=== PATIENT | female | born 1970 | race Caucasian/White ===

== ENCOUNTER 2017-12-23 11:00 | Outpatient (RCR) | payer MEDICAID, SELFPAY | END 2017-12-25 23:59 | LOC: NS 11:00 | PROVIDERS: Family Provider Family Medicine; PCP Family Medicine; Visit Provider Family Medicine | DX: E66.01 Morbid (severe) obesity due to excess calories (principal); Z71.3 Dietary counseling and surveillance | CPT/HCPCS: 97803 ==

== ENCOUNTER 2018-01-20 11:00 | Outpatient (RCR) | payer MEDICAID, SELFPAY ==
[2017-12-17 08:45] VITALS: BMI 59.1
== END 2018-01-22 23:59 ==
LOC: NS 11:00
PROVIDERS: Family Provider Family Medicine; PCP Family Medicine; Visit Provider Family Medicine
DX: E66.01 Morbid (severe) obesity due to excess calories (principal); Z71.3 Dietary counseling and surveillance
CPT/HCPCS: 97803

== ENCOUNTER → 2018-01-21 14:52 | Outpatient (CLI) | payer MEDICAID, SELFPAY ==
[2018-01-21 15:52] LABS: Hematocrit 45.1 % (37-47); Hemoglobin 14.5 g/dl (12.0-15.0); Mean Corp Hgb Conc 32.2 g/gl (32-36); Mean Corpuscular Hgb 30.5 pg (27.0-32.0); Mean Corpuscular Volume 94.9 fL (81-99); Mean Platelet Vol. 11.4 fl (6.2-12.0); Platelet Count 277 K/mm3 (150-450); RBC Distribution Width CV 13.9 % (11.6-14.6); RBC Distribution Width SD 48.4 fl (35.1-43.9); Red Blood Count 4.75 M/mm3 (4.2-5.4); White Blood Count 11.9 K/mm3 (4.4-11.0)
[2018-01-21 15:55] LABS: Scan Indicated on CBC? Y/N NO
[2018-01-21 16:24] LABS: ALB/GLOB Ratio 0.7 RATIO (0.9-2.4); AST(SGOT) 18 U/L (15-37); Alanine Aminotransfer ALT/SGPT 23 U/L (13-56); Albumin, Serum 3.2 g/dL (3.2-5.0); Alkaline Phosphatase 98 U/L (45-117); Anion Gap 8 (5-15); BUN 17 mg/dL (7-18); BUN/Creat Ratio 24.8 RATIO (10-20); Calcium,Total 8.8 mg/dL (8.5-10.1); Chloride 104 mmol/L (98-107); Creatinine, Serum 0.69 mg/dL (0.55-1.02); EST Glomerular Filtration Rate 98 mL/min (>60); Est Glom Filt Rate - Afr Amer 118 mL/min (>60); Globulin 4.5 g/dL (2.2-4.2); Glucose 66 mg/dL (74-106); Potassium 4.1 mmol/L (3.5-5.1); Protein, Total 7.7 g/dL (6.4-8.2); Sodium Level 139 mmol/L (136-145)
[2018-01-21 17:22] LABS: Hemoglobin A1c 5.7 % (4.2-6.3)
== END ==
PROVIDERS: Family Provider Family Medicine; PCP Family Medicine; Visit Provider Nurse Practitioner
DX: E11.9 Type 2 diabetes mellitus without complications (principal)
CPT/HCPCS: 36415; 80053; 83036; 85027

== ENCOUNTER 2018-02-17 11:30 | Outpatient (RCR) | payer MEDICAID, SELFPAY | END 2018-02-22 23:59 | LOC: NS 11:30 | PROVIDERS: Family Provider Family Medicine; PCP Family Medicine; Visit Provider Family Medicine | DX: E66.01 Morbid (severe) obesity due to excess calories (principal); Z71.3 Dietary counseling and surveillance | CPT/HCPCS: 97803 ==

== ENCOUNTER 2018-02-24 11:57 | Outpatient (RCR) | payer MEDICAID, SELFPAY | END 2018-02-24 11:58 | disposition home or self-care (01) | LOC: NS 11:57 | PROVIDERS: Family Provider Family Medicine; PCP Family Medicine; Visit Provider Family Medicine | DX: E66.01 Morbid (severe) obesity due to excess calories (principal); Z71.3 Dietary counseling and surveillance | CPT/HCPCS: 97803 ==

== ENCOUNTER → 2018-03-11 13:03 | Outpatient (CLI) | payer MEDICAID, SELFPAY ==
--- NOTE | 2018-03-11 13:10 | RAD_ITS ---
STUDY: X-RAY - LEFT KNEE REASON FOR EXAM: Female, 47 years old. Pain TECHNIQUE: 4 view(s) of the knee. COMPARISON: None. FINDINGS: There is no evidence of fracture or dislocation. There are mild degenerative changes. There are no radiodense foreign bodies. RAD/Knee 4 or More Views IMPRESSION: No fracture or dislocation. Mild degenerative change. Electronically Signed: Jayesh Snider, at 22:44 EDT Tel , Service support ,
--- NOTE | 2018-03-11 13:50 | RAD_ITS ---
STUDY: X-RAY - RIGHT KNEE REASON FOR EXAM: Female, 47 years old. Pain TECHNIQUE: 4 view(s) of the knee. COMPARISON: None. FINDINGS: There is no evidence of fracture or dislocation. There are mild degenerative changes. There are no radiodense foreign bodies. RAD/Knee 4 or More Views IMPRESSION: No fracture or dislocation. Mild degenerative change. Electronically Signed: Jayesh Snider, at 22:44 EDT Tel , Service support ,
== END ==
PROVIDERS: Family Provider Family Medicine; PCP Family Medicine; Visit Provider Anesthesiology Pain Medicine
DX: M25.561 Pain in right knee (principal); M25.562 Pain in left knee
CPT/HCPCS: 73564

== ENCOUNTER 2018-03-17 11:00 | Outpatient (RCR) | payer MEDICAID, SELFPAY | END 2018-03-24 23:59 | LOC: NS 11:00 | PROVIDERS: Family Provider Family Medicine; PCP Family Medicine; Visit Provider Family Medicine | DX: E66.01 Morbid (severe) obesity due to excess calories (principal); Z68.44 Body mass index [BMI] 60.0-69.9, adult; Z71.3 Dietary counseling and surveillance | CPT/HCPCS: 97802; 97803 ==

== ENCOUNTER → 2018-03-21 11:29 | Outpatient (CLI) | payer MEDICAID, SELFPAY ==
[2018-03-21 14:30] LABS: Anion Gap 7 (5-15); BUN 20 mg/dL (7-18); BUN/Creat Ratio 25.5 RATIO (10-20); Calcium,Total 9.1 mg/dL (8.5-10.1); Chloride 101 mmol/L (98-107); Cholesterol 159 mg/dL (200); Creatinine, Serum 0.78 mg/dL (0.55-1.02); EST Glomerular Filtration Rate 84 mL/min (>60); Est Glom Filt Rate - Afr Amer 101 mL/min (>60); Glucose 95 mg/dL (74-106); High Density Lipoprotein 38 mg/dL; Potassium 4.4 mmol/L (3.5-5.1); Sodium Level 138 mmol/L (136-145); Thyroid Stim Hormone (TSH) 0.81 uIU/mL (0.358-3.74); Triglycerides 231 mg/dL; Very Low Density Lipoprotein 46 mg/dL (5-40)
== END ==
PROVIDERS: Family Provider Family Medicine; PCP Family Medicine; Visit Provider Family Medicine
DX: E66.9 Obesity, unspecified (principal); E88.81 Metabolic syndrome and other insulin resistance; F39 Unspecified mood [affective] disorder
CPT/HCPCS: 36415; 80048; 80061; 84443

== ENCOUNTER 2018-04-14 11:15 | Outpatient (RCR) | payer MEDICAID, SELFPAY | END 2018-04-24 23:59 | LOC: NS 11:15 | PROVIDERS: Family Provider Family Medicine; PCP Family Medicine; Visit Provider Family Medicine | DX: E66.01 Morbid (severe) obesity due to excess calories (principal); Z68.44 Body mass index [BMI] 60.0-69.9, adult; Z71.3 Dietary counseling and surveillance | CPT/HCPCS: 97803 ==

== ENCOUNTER 2018-05-13 11:30 | Outpatient (RCR) | payer MEDICAID, SELFPAY | END 2018-05-24 23:59 | LOC: NS 11:30 | PROVIDERS: Family Provider Family Medicine; PCP Family Medicine; Visit Provider Family Medicine | DX: E66.01 Morbid (severe) obesity due to excess calories (principal); Z68.44 Body mass index [BMI] 60.0-69.9, adult; Z71.3 Dietary counseling and surveillance | CPT/HCPCS: 97803 ==

== ENCOUNTER 2018-06-09 12:56 | Outpatient (RCR) | payer MEDICAID, SELFPAY | END 2018-06-24 23:59 | LOC: NS 12:56 | PROVIDERS: Family Provider Family Medicine; PCP Family Medicine; Visit Provider Family Medicine | DX: E66.01 Morbid (severe) obesity due to excess calories (principal); Z68.44 Body mass index [BMI] 60.0-69.9, adult; Z71.3 Dietary counseling and surveillance | CPT/HCPCS: 97803 ==

== ENCOUNTER → 2018-07-21 11:10 | Outpatient (CLI) | payer MEDICAID, SELFPAY ==
[2018-07-21 14:06] LABS: AST(SGOT) 21 U/L (15-37); Alanine Aminotransfer ALT/SGPT 24 U/L (13-56); Albumin, Serum 3.5 g/dL (3.2-5.0); Alkaline Phosphatase 86 U/L (45-117); Anion Gap 9 (5-15); BUN 23 mg/dL (7-18); Calcium,Total 8.9 mg/dL (8.5-10.1); Chloride 104 mmol/L (98-107); Cholesterol 159 mg/dL (200); Creatinine, Serum 0.79 mg/dL (0.55-1.02); EST Glomerular Filtration Rate 83 mL/min (>60); Est Glom Filt Rate - Afr Amer 100 mL/min (>60); Globulin 4.3 g/dL (2.2-4.2); Glucose 91 mg/dL (74-106); High Density Lipoprotein 36 mg/dL; Protein, Total 7.8 g/dL (6.4-8.2); Sodium Level 138 mmol/L (136-145); Triglycerides 210 mg/dL; Very Low Density Lipoprotein 42 mg/dL (5-40)
== END ==
PROVIDERS: Family Provider Family Medicine; PCP Family Medicine; Visit Provider Family Medicine
DX: E11.9 Type 2 diabetes mellitus without complications (principal)
CPT/HCPCS: 36415; 80048; 80061; 80076

== ENCOUNTER 2018-07-22 13:30 | Outpatient (RCR) | payer MEDICAID, SELFPAY | END 2018-07-25 23:59 | LOC: NS 13:30 | PROVIDERS: Family Provider Family Medicine; PCP Family Medicine; Visit Provider Family Medicine | DX: E66.01 Morbid (severe) obesity due to excess calories (principal); Z68.44 Body mass index [BMI] 60.0-69.9, adult; Z71.3 Dietary counseling and surveillance | CPT/HCPCS: 97803 ==

== ENCOUNTER 2018-08-18 15:00 | Outpatient (RCR) | payer MEDICAID, SELFPAY | END 2018-08-24 23:59 | LOC: NS 15:00 | PROVIDERS: Family Provider Family Medicine; PCP Family Medicine; Visit Provider Family Medicine | DX: E66.01 Morbid (severe) obesity due to excess calories (principal); Z68.44 Body mass index [BMI] 60.0-69.9, adult; Z71.3 Dietary counseling and surveillance | CPT/HCPCS: 97803 ==

== ENCOUNTER 2018-09-22 11:30 | Outpatient (RCR) | payer MEDICAID, SELFPAY | END 2018-09-24 23:59 | LOC: NS 11:30 | PROVIDERS: Family Provider Family Medicine; PCP Family Medicine; Referring Provider Family Medicine; Visit Provider Family Medicine | DX: E66.01 Morbid (severe) obesity due to excess calories (principal); Z68.44 Body mass index [BMI] 60.0-69.9, adult; Z71.3 Dietary counseling and surveillance | CPT/HCPCS: 97802; 97803 ==

== ENCOUNTER 2018-10-13 13:09 | Outpatient (RCR) | payer MEDICAID, SELFPAY | END 2018-10-24 23:59 | LOC: NS 13:09 | PROVIDERS: Family Provider Family Medicine; PCP Family Medicine; Referring Provider Family Medicine; Visit Provider Family Medicine | DX: E66.01 Morbid (severe) obesity due to excess calories (principal); Z68.44 Body mass index [BMI] 60.0-69.9, adult; Z71.3 Dietary counseling and surveillance | CPT/HCPCS: 97803 ==

== ENCOUNTER 2018-11-11 13:30 | Outpatient (RCR) | payer MEDICAID, SELFPAY ==
[2018-10-27 13:24] VITALS: BMI 60.3
== END 2018-11-24 23:59 ==
LOC: NS 13:30
PROVIDERS: Family Provider Family Medicine; PCP Family Medicine; Referring Provider Family Medicine; Visit Provider Family Medicine
DX: E66.01 Morbid (severe) obesity due to excess calories (principal); Z68.44 Body mass index [BMI] 60.0-69.9, adult; Z71.3 Dietary counseling and surveillance
CPT/HCPCS: 97803

== ENCOUNTER 2018-12-02 13:27 | Outpatient (RCR) | payer MEDICAID, SELFPAY ==
[2018-10-27 13:24] VITALS: BMI 60.3
== END 2018-12-25 23:59 ==
LOC: NS 13:27
PROVIDERS: Family Provider Family Medicine; PCP Family Medicine; Referring Provider Family Medicine; Visit Provider Family Medicine
DX: E66.01 Morbid (severe) obesity due to excess calories (principal); Z68.44 Body mass index [BMI] 60.0-69.9, adult; Z71.3 Dietary counseling and surveillance
CPT/HCPCS: 97803

== ENCOUNTER → 2019-01-15 13:21 | Outpatient (CLI) | payer MEDICAID, SELFPAY ==
[2018-10-27 13:24] VITALS: BMI 60.3
[2019-01-15 14:34] LABS: Amphetamine Urine VISTA NEGATIVE (<1000 ng/mL); Barbiturate Urine VISTA NEGATIVE (< 200 ng/mL); Benzodiazepine Urine VISTA NEGATIVE (< 200 ng/mL); Cocaine Urine VISTA NEGATIVE (< 300 ng/mL); Ecstacy Urine VISTA POSITIVE (< 500 ng/mL); Methadone Urine VISTA NEGATIVE (< 300 ng/mL); PCP Urine VISTA NEGATIVE (< 25 ng/mL); THC Urine VISTA NEGATIVE (< 50 ng/mL); Vista UDS pH Range 6
== END ==
PROVIDERS: Family Provider Family Medicine; PCP Family Medicine; Referring Provider Anesthesiology Pain Medicine; Visit Provider Anesthesiology Pain Medicine
DX: F11.20 Opioid dependence, uncomplicated (principal)
CPT/HCPCS: 80307

== ENCOUNTER 2019-02-04 11:28 | Outpatient (RCR) | payer MEDICAID, SELFPAY ==
[2018-10-27 13:24] VITALS: BMI 60.3
[2019-01-26 11:16] VITALS: BMI 60.3
== END 2019-02-22 23:59 ==
LOC: NS 11:28
PROVIDERS: Family Provider Family Medicine; PCP Family Medicine; Referring Provider Family Medicine; Visit Provider Family Medicine
DX: E66.01 Morbid (severe) obesity due to excess calories (principal); Z68.44 Body mass index [BMI] 60.0-69.9, adult; Z71.3 Dietary counseling and surveillance
CPT/HCPCS: 97803

== ENCOUNTER 2019-03-09 11:00 | Outpatient (RCR) | payer MEDICAID, SELFPAY ==
[2019-01-26 11:16] VITALS: BMI 60.3
== END 2019-03-24 23:59 ==
LOC: NS 11:00
PROVIDERS: Family Provider Family Medicine; PCP Family Medicine; Referring Provider Family Medicine; Visit Provider Family Medicine
DX: E66.01 Morbid (severe) obesity due to excess calories (principal); Z68.44 Body mass index [BMI] 60.0-69.9, adult; Z71.3 Dietary counseling and surveillance
CPT/HCPCS: 97803

== ENCOUNTER 2019-04-14 09:33 | Outpatient (RCR) | payer MEDICAID, SELFPAY ==
[2019-01-26 11:16] VITALS: BMI 60.3
== END 2019-04-24 23:59 ==
LOC: NS 09:33
PROVIDERS: Family Provider Family Medicine; PCP Family Medicine; Referring Provider Family Medicine; Visit Provider Family Medicine
DX: E66.01 Morbid (severe) obesity due to excess calories (principal); Z68.44 Body mass index [BMI] 60.0-69.9, adult; Z71.3 Dietary counseling and surveillance
CPT/HCPCS: 97803

== ENCOUNTER 2019-04-27 12:10 | Outpatient (RCR) | payer MEDICAID, SELFPAY ==
[2019-01-26 11:16] VITALS: BMI 60.3
== END 2019-05-24 23:59 ==
LOC: NS 12:10
PROVIDERS: Family Provider Family Medicine; PCP Family Medicine; Referring Provider Family Medicine; Visit Provider Family Medicine
DX: E66.01 Morbid (severe) obesity due to excess calories (principal); Z68.44 Body mass index [BMI] 60.0-69.9, adult; Z71.3 Dietary counseling and surveillance
CPT/HCPCS: 97803

== ENCOUNTER → 2019-06-18 08:55 | Outpatient (CLI) | payer MEDICAID, SELFPAY ==
[2019-01-26 11:16] VITALS: BMI 60.3
[2019-06-18 10:43] LABS: Anion Gap 8 (5-15); BUN 21 mg/dL (7-18); BUN/Creat Ratio 31.3 RATIO (10-20); Calcium,Total 8.4 mg/dL (8.5-10.1); Chloride 105 mmol/L (98-107); Cholesterol 184 mg/dL (200); Creatinine, Serum 0.67 mg/dL (0.55-1.02); EST Glomerular Filtration Rate 100 mL/min (>60); Est Glom Filt Rate - Afr Amer 121 mL/min (>60); Glucose 115 mg/dL (74-106); High Density Lipoprotein 51 mg/dL; Potassium 4.3 mmol/L (3.5-5.1); Sodium Level 141 mmol/L (136-145); Triglycerides 131 mg/dL; Very Low Density Lipoprotein 26 mg/dL (5-40)
[2019-06-18 10:54] LABS: Vitamin D,25 Hydroxy 18.3 ng/mL (29.95-100.01)
== END ==
PROVIDERS: Family Provider Family Medicine; PCP Family Medicine; Referring Provider Family Medicine; Visit Provider Family Medicine
DX: E55.9 Vitamin D deficiency, unspecified (principal); I10 Essential (primary) hypertension; E66.01 Morbid (severe) obesity due to excess calories
CPT/HCPCS: 36415; 80048; 80061; 82306

== ENCOUNTER 2019-06-22 13:30 | Outpatient (RCR) | payer MEDICAID, SELFPAY ==
[2019-01-26 11:16] VITALS: BMI 60.3
== END 2019-06-24 23:59 ==
LOC: NS 13:30
PROVIDERS: Family Provider Family Medicine; PCP Family Medicine; Referring Provider Family Medicine; Visit Provider Family Medicine
DX: E66.01 Morbid (severe) obesity due to excess calories (principal); Z68.44 Body mass index [BMI] 60.0-69.9, adult; Z71.3 Dietary counseling and surveillance
CPT/HCPCS: 97802; 97803

== ENCOUNTER 2019-07-21 11:00 | Outpatient (RCR) | payer MEDICAID, SELFPAY ==
[2019-01-26 11:16] VITALS: BMI 60.3
== END 2019-07-25 23:59 ==
LOC: NS 11:00
PROVIDERS: Family Provider Family Medicine; PCP Family Medicine; Referring Provider Family Medicine; Visit Provider Family Medicine
DX: E66.01 Morbid (severe) obesity due to excess calories (principal); Z68.44 Body mass index [BMI] 60.0-69.9, adult; Z71.3 Dietary counseling and surveillance
CPT/HCPCS: 97803

== ENCOUNTER 2019-08-17 11:00 | Outpatient (RCR) | payer MEDICAID, SELFPAY ==
[2019-01-26 11:16] VITALS: BMI 60.3
== END 2019-08-24 23:59 ==
LOC: NS 11:00
PROVIDERS: Family Provider Family Medicine; PCP Family Medicine; Referring Provider Family Medicine; Visit Provider Family Medicine
DX: E66.01 Morbid (severe) obesity due to excess calories (principal); Z68.44 Body mass index [BMI] 60.0-69.9, adult; Z71.3 Dietary counseling and surveillance
CPT/HCPCS: 97803

== ENCOUNTER 2019-08-31 11:06 | Outpatient (RCR) | payer MEDICAID, SELFPAY ==
[2019-01-26 11:16] VITALS: BMI 60.3
== END 2019-09-24 23:59 ==
LOC: NS 11:06
PROVIDERS: Family Provider Family Medicine; PCP Family Medicine; Referring Provider Family Medicine; Visit Provider Family Medicine
DX: E66.01 Morbid (severe) obesity due to excess calories (principal); Z68.44 Body mass index [BMI] 60.0-69.9, adult; Z71.3 Dietary counseling and surveillance
CPT/HCPCS: 97803

== ENCOUNTER → 2019-09-16 11:06 | Outpatient (CLI) | payer MEDICAID, SELFPAY ==
[2019-01-26 11:16] VITALS: BMI 60.3
[2019-09-16 12:59] LABS: Hemoglobin A1c 6.2 % (4.2-6.3)
[2019-09-16 13:08] LABS: Anion Gap 7 (5-15); BUN 18 mg/dL (7-18); Calcium,Total 8.6 mg/dL (8.5-10.1); Chloride 104 mmol/L (98-107); Cholesterol 150 mg/dL (200); Creatinine, Serum 0.78 mg/dL (0.55-1.02); EST Glomerular Filtration Rate 83 mL/min (>60); Est Glom Filt Rate - Afr Amer 101 mL/min (>60); Glucose 144 mg/dL (74-106); High Density Lipoprotein 43 mg/dL; Potassium 3.7 mmol/L (3.5-5.1); Sodium Level 138 mmol/L (136-145); Triglycerides 140 mg/dL; Very Low Density Lipoprotein 28 mg/dL (5-40)
[2019-09-16 13:13] LABS: Vitamin D,25 Hydroxy 26.9 ng/mL (29.95-100.01)
== END ==
PROVIDERS: Family Provider Family Medicine; PCP Family Medicine; Referring Provider Family Medicine; Visit Provider Family Medicine
DX: E11.9 Type 2 diabetes mellitus without complications (principal); E55.9 Vitamin D deficiency, unspecified
CPT/HCPCS: 36415; 80048; 80061; 82306; 83036

== ENCOUNTER 2019-10-12 11:00 | Outpatient (RCR) | payer MEDICAID, SELFPAY ==
[2019-01-26 11:16] VITALS: BMI 60.3
== END 2019-10-24 23:59 ==
LOC: NS 11:00
PROVIDERS: Family Provider Family Medicine; PCP Family Medicine; Referring Provider Family Medicine; Visit Provider Family Medicine
DX: Z71.3 Dietary counseling and surveillance (principal); E66.01 Morbid (severe) obesity due to excess calories; Z68.44 Body mass index [BMI] 60.0-69.9, adult
CPT/HCPCS: 97803

== ENCOUNTER 2019-10-26 10:57 | Outpatient (RCR) | payer MEDICAID, SELFPAY ==
[2019-01-26 11:16] VITALS: BMI 60.3
== END 2019-11-24 23:59 ==
LOC: NS 10:57
PROVIDERS: Family Provider Family Medicine; PCP Family Medicine; Referring Provider Family Medicine; Visit Provider Family Medicine
DX: Z71.3 Dietary counseling and surveillance (principal); E66.01 Morbid (severe) obesity due to excess calories
CPT/HCPCS: 97803

== ENCOUNTER 2019-12-14 11:30 | Outpatient (RCR) | payer MEDICAID, SELFPAY ==
[2019-01-26 11:16] VITALS: BMI 60.3
== END 2019-12-25 23:59 ==
LOC: NS 11:30
PROVIDERS: Family Provider Family Medicine; PCP Family Medicine; Referring Provider Family Medicine; Visit Provider Family Medicine
DX: Z71.3 Dietary counseling and surveillance (principal); E66.01 Morbid (severe) obesity due to excess calories
CPT/HCPCS: 97803

== ENCOUNTER 2020-01-11 11:30 | Outpatient (RCR) | payer MEDICAID, SELFPAY ==
[2019-01-26 11:16] VITALS: BMI 60.3
== END 2020-01-23 23:59 ==
LOC: NS 11:30
PROVIDERS: Family Provider Family Medicine; PCP Family Medicine; Referring Provider Family Medicine; Visit Provider Family Medicine
DX: Z71.3 Dietary counseling and surveillance (principal); E66.01 Morbid (severe) obesity due to excess calories
CPT/HCPCS: 97803

== ENCOUNTER 2020-02-08 10:56 | Outpatient (RCR) | payer MEDICAID, SELFPAY ==
[2019-01-26 11:16] VITALS: BMI 60.3
== END 2020-02-23 23:59 ==
LOC: NS 10:56
PROVIDERS: Family Provider Family Medicine; PCP Family Medicine; Referring Provider Family Medicine; Visit Provider Family Medicine
DX: Z71.3 Dietary counseling and surveillance (principal); E66.01 Morbid (severe) obesity due to excess calories
CPT/HCPCS: 97802

== ENCOUNTER 2020-03-22 11:15 | Outpatient (RCR) | payer MEDICAID, SELFPAY ==
[2019-01-26 11:16] VITALS: BMI 60.3
== END 2020-03-24 23:59 ==
LOC: NS 11:15
PROVIDERS: Family Provider Family Medicine; PCP Family Medicine; Referring Provider Family Medicine; Visit Provider Family Medicine
DX: Z71.3 Dietary counseling and surveillance (principal); E66.01 Morbid (severe) obesity due to excess calories
CPT/HCPCS: 97803

== ENCOUNTER 2020-04-04 14:20 | Outpatient (RCR) | payer MEDICAID, SELFPAY ==
[2019-01-26 11:16] VITALS: BMI 60.3
== END 2020-04-24 23:59 ==
LOC: NS 14:20
PROVIDERS: Family Provider Family Medicine; PCP Family Medicine; Referring Provider Family Medicine; Visit Provider Family Medicine
DX: Z71.3 Dietary counseling and surveillance (principal); E66.01 Morbid (severe) obesity due to excess calories; Z68.44 Body mass index [BMI] 60.0-69.9, adult
CPT/HCPCS: 97803

== ENCOUNTER 2020-05-03 11:17 | Outpatient (RCR) | payer MEDICAID, SELFPAY ==
[2019-01-26 11:16] VITALS: BMI 60.3
== END 2020-05-24 23:59 ==
LOC: NS 11:17
PROVIDERS: Family Provider Family Medicine; PCP Family Medicine; Referring Provider Family Medicine; Visit Provider Family Medicine
DX: Z71.3 Dietary counseling and surveillance (principal); E66.01 Morbid (severe) obesity due to excess calories
CPT/HCPCS: 97803

== ENCOUNTER 2020-06-14 13:00 | Outpatient (RCR) | payer MEDICAID, SELFPAY ==
[2019-01-26 11:16] VITALS: BMI 60.3
== END 2020-06-24 23:59 ==
LOC: NS 13:00
PROVIDERS: Family Provider Family Medicine; PCP Family Medicine; Referring Provider Family Medicine; Visit Provider Family Medicine
DX: Z71.3 Dietary counseling and surveillance (principal); E66.01 Morbid (severe) obesity due to excess calories
CPT/HCPCS: 97803

== ENCOUNTER 2020-06-28 11:32 | Outpatient (RCR) | payer MEDICAID, SELFPAY ==
[2019-01-26 11:16] VITALS: BMI 60.3
== END 2020-07-25 23:59 ==
LOC: NS 11:32
PROVIDERS: Family Provider Family Medicine; PCP Family Medicine; Referring Provider Family Medicine; Visit Provider Family Medicine
DX: Z71.3 Dietary counseling and surveillance (principal); E66.01 Morbid (severe) obesity due to excess calories; Z68.44 Body mass index [BMI] 60.0-69.9, adult
CPT/HCPCS: 97803

== ENCOUNTER 2020-09-12 11:28 | Outpatient (RCR) | payer MEDICAID, SELFPAY ==
[2019-01-26 11:16] VITALS: BMI 60.3
== END 2020-09-24 23:59 ==
LOC: NS 11:28
PROVIDERS: Family Provider Family Medicine; PCP Family Medicine; Referring Provider Family Medicine; Visit Provider Family Medicine
DX: Z71.3 Dietary counseling and surveillance (principal); E66.01 Morbid (severe) obesity due to excess calories
CPT/HCPCS: 97803

== ENCOUNTER 2020-10-24 13:00 | Outpatient (RCR) | payer MEDICAID, SELFPAY ==
[2019-01-26 11:16] VITALS: BMI 60.3
== END 2020-10-24 23:59 ==
LOC: NS 13:00
PROVIDERS: Family Provider Family Medicine; PCP Family Medicine; Referring Provider Family Medicine; Visit Provider Family Medicine
DX: Z71.3 Dietary counseling and surveillance (principal); E66.01 Morbid (severe) obesity due to excess calories
CPT/HCPCS: 97803

== ENCOUNTER 2020-11-22 15:00 | Outpatient (RCR) | payer MEDICAID, SELFPAY ==
[2019-01-26 11:16] VITALS: BMI 60.3
== END 2020-11-24 23:59 ==
LOC: NS 15:00
PROVIDERS: Family Provider Family Medicine; PCP Family Medicine; Referring Provider Family Medicine; Visit Provider Family Medicine
DX: Z71.3 Dietary counseling and surveillance (principal); E66.01 Morbid (severe) obesity due to excess calories
CPT/HCPCS: 97803

== ENCOUNTER → 2020-12-12 12:13 | Outpatient (CLI) | payer MEDICAID, SELFPAY ==
[2019-01-26 11:16] VITALS: BMI 60.3
[2020-12-12 16:04] LABS: Anion Gap 5 (5-15); BUN 22 mg/dL (7-18); BUN/Creat Ratio 24.6 RATIO (10-20); Calcium,Total 9.7 mg/dL (8.5-10.1); Chloride 107 mmol/L (98-107); Cholesterol 181 mg/dL (200); EST Glomerular Filtration Rate 71 mL/min (>60); Est Glom Filt Rate - Afr Amer 86 mL/min (>60); Glucose 109 mg/dL (74-106); High Density Lipoprotein 52 mg/dL; Potassium 5.3 mmol/L (3.5-5.1); Sodium Level 141 mmol/L (136-145); Triglycerides 125 mg/dL; Very Low Density Lipoprotein 25 mg/dL (5-40)
== END ==
PROVIDERS: PCP Family Medicine; Visit Provider Family Medicine
DX: E11.9 Type 2 diabetes mellitus without complications (principal)
CPT/HCPCS: 36415; 80048; 80061

== ENCOUNTER → 2020-12-13 14:26 | Outpatient (CLI) | payer MEDICAID, SELFPAY ==
[2019-01-26 11:16] VITALS: BMI 60.3
[2020-12-13 16:13] LABS: Amphetamine Urine VISTA NEGATIVE (<1000 ng/mL); Barbiturate Urine VISTA NEGATIVE (< 200 ng/mL); Benzodiazepine Urine VISTA NEGATIVE (< 200 ng/mL); Cocaine Urine VISTA NEGATIVE (< 300 ng/mL); Ecstacy Urine VISTA POSITIVE (< 500 ng/mL); Methadone Urine VISTA NEGATIVE (< 300 ng/mL); PCP Urine VISTA NEGATIVE (< 25 ng/mL); THC Urine VISTA NEGATIVE (< 50 ng/mL); Vista UDS pH Range 6
== END ==
PROVIDERS: PCP Family Medicine; Referring Provider Anesthesiology Pain Medicine; Visit Provider Anesthesiology Pain Medicine
DX: F11.20 Opioid dependence, uncomplicated (principal)
CPT/HCPCS: 80307

== ENCOUNTER 2020-12-19 11:00 | Outpatient (RCR) | payer MEDICAID, SELFPAY ==
[2019-01-26 11:16] VITALS: BMI 60.3
== END 2020-12-25 23:59 ==
LOC: NS 11:00
PROVIDERS: Family Provider Family Medicine; PCP Family Medicine; Referring Provider Family Medicine; Visit Provider Family Medicine
DX: Z71.3 Dietary counseling and surveillance (principal); E66.01 Morbid (severe) obesity due to excess calories
CPT/HCPCS: 97803

== ENCOUNTER 2021-01-16 11:00 | Outpatient (RCR) | payer MEDICAID, SELFPAY ==
[2019-01-26 11:16] VITALS: BMI 60.3
== END 2021-01-22 23:59 ==
LOC: NS 11:00
PROVIDERS: Family Provider Family Medicine; PCP Family Medicine; Referring Provider Family Medicine; Visit Provider Family Medicine
DX: Z71.3 Dietary counseling and surveillance (principal); E66.01 Morbid (severe) obesity due to excess calories
CPT/HCPCS: 97803

== ENCOUNTER → 2021-01-20 14:55 | Outpatient (CLI) | payer MEDICAID, SELFPAY ==
[2019-01-26 11:16] VITALS: BMI 60.3
--- NOTE | 2021-01-20 14:57 | RAD_ITS ---
STUDY: X-RAY - LEFT SHOULDER REASON FOR EXAM: Female, 50 years old. left shoulder pain TECHNIQUE: 4 view(s) of the shoulder. COMPARISON: None. FINDINGS: There is severe degenerative arthrosis of the glenohumeral articulation. Normal acromioclavicular joint. Normal acromion. The soft tissue structures are unremarkable. Normal visualized pulmonary apex. RAD/Shoulder min 2 Views IMPRESSION: Severe DJD of the glenohumeral articulation Electronically Signed: Bryan Ortiz MD at 19:28 EST , Service support ,
== END ==
PROVIDERS: PCP Family Medicine; Referring Provider Family Medicine; Visit Provider Family Medicine
DX: M25.512 Pain in left shoulder (principal)
CPT/HCPCS: 73030

== ENCOUNTER 2021-02-13 12:00 | Outpatient (RCR) | payer MEDICAID, SELFPAY ==
[2019-01-26 11:16] VITALS: BMI 60.3
== END 2021-02-22 23:59 ==
LOC: NS 12:00
PROVIDERS: Family Provider Family Medicine; PCP Family Medicine; Referring Provider Family Medicine; Visit Provider Family Medicine
DX: Z71.3 Dietary counseling and surveillance (principal); E66.01 Morbid (severe) obesity due to excess calories
CPT/HCPCS: 97803

== ENCOUNTER 2021-03-13 11:30 | Outpatient (RCR) | payer MEDICAID, SELFPAY ==
[2019-01-26 11:16] VITALS: BMI 60.3
== END 2021-03-24 23:59 ==
LOC: NS 11:30
PROVIDERS: Family Provider Family Medicine; PCP Family Medicine; Referring Provider Family Medicine; Visit Provider Family Medicine
DX: Z71.3 Dietary counseling and surveillance (principal); E66.01 Morbid (severe) obesity due to excess calories
CPT/HCPCS: 97803

== ENCOUNTER 2021-04-17 11:30 | Outpatient (RCR) | payer MEDICAID, SELFPAY ==
[2019-01-26 11:16] VITALS: BMI 60.3
== END 2021-04-24 23:59 ==
LOC: NS 11:30
PROVIDERS: Family Provider Family Medicine; PCP Family Medicine; Referring Provider Family Medicine; Visit Provider Family Medicine
DX: Z71.3 Dietary counseling and surveillance (principal); E66.01 Morbid (severe) obesity due to excess calories; Z68.43 Body mass index [BMI] 50.0-59.9, adult
CPT/HCPCS: 97803

== ENCOUNTER → 2021-05-09 15:21 | Outpatient (CLI) | payer MEDICAID, SELFPAY ==
[2019-01-26 11:16] VITALS: BMI 60.3
--- NOTE | 2021-05-09 15:36 | RAD_ITS ---
STUDY: X-RAY - PELVIS AND BILATERAL HIPS REASON FOR EXAM: Female, 50 years old. HIP PAIN TECHNIQUE: AP view of the pelvis.? 2 views of the right hip, and 2 views of the left hip were obtained. COMPARISON: 04/29/2016 pelvis x-rays FINDINGS: There is a non-specific bowel gas pattern. Normal visualized soft tissue structures. There is narrowing with cortical sclerosis and osteophyte formation of the sacroiliac joint consistent with degenerative osteoarthritic changes. Normal bilateral superior and inferior pubic rami. Normal pubic symphysis. Normal bilateral ischial tuberosities. There are osteoarthritic changes of the right femoral head with marginal osteophyte formation. There is cortical sclerosis with sub-cortical cyst formation of the right acetabulum. There is severe articular joint space narrowing of the right hip. There are osteoarthritic changes of the left femoral head with marginal osteophyte formation. There is cortical sclerosis with sub-cortical cyst formation of the left acetabulum. There is severe articular joint space narrowing of the left hip. RAD/Hips B/L min 2 views w/ Pelvis IMPRESSION: Persistent Advanced degenerative change both hip joints. No visualized acute fracture. Electronically Signed: Florence Rothman MD at 5:31 EDT Tel , Service support ,
== END ==
PROVIDERS: PCP Family Medicine; Referring Provider Anesthesiology Pain Medicine; Visit Provider Anesthesiology Pain Medicine
DX: M25.551 Pain in right hip (principal); M25.552 Pain in left hip
CPT/HCPCS: 73521

== ENCOUNTER 2021-05-15 11:30 | Outpatient (RCR) | payer MEDICAID, SELFPAY ==
[2019-01-26 11:16] VITALS: BMI 60.3
== END 2021-05-24 23:59 ==
LOC: NS 11:30
PROVIDERS: Family Provider Family Medicine; PCP Family Medicine; Referring Provider Family Medicine; Visit Provider Family Medicine
DX: Z71.3 Dietary counseling and surveillance (principal); E66.01 Morbid (severe) obesity due to excess calories; Z68.43 Body mass index [BMI] 50.0-59.9, adult
CPT/HCPCS: 97803

== ENCOUNTER 2021-06-05 12:07 | Outpatient (RCR) | payer MEDICAID, SELFPAY ==
[2019-01-26 11:16] VITALS: BMI 60.3
== END 2021-06-24 23:59 ==
LOC: NS 12:07
PROVIDERS: Family Provider Family Medicine; PCP Family Medicine; Referring Provider Family Medicine; Visit Provider Family Medicine
DX: Z71.3 Dietary counseling and surveillance (principal); E66.01 Morbid (severe) obesity due to excess calories; Z68.43 Body mass index [BMI] 50.0-59.9, adult
CPT/HCPCS: 97803

== ENCOUNTER 2021-07-17 11:00 | Outpatient (RCR) | payer MEDICAID, SELFPAY ==
[2019-01-26 11:16] VITALS: BMI 60.3
== END 2021-07-25 23:59 ==
LOC: NS 11:00
PROVIDERS: Family Provider Family Medicine; PCP Family Medicine; Referring Provider Family Medicine; Visit Provider Family Medicine
DX: Z71.3 Dietary counseling and surveillance (principal); E66.01 Morbid (severe) obesity due to excess calories; Z68.43 Body mass index [BMI] 50.0-59.9, adult
CPT/HCPCS: 97803

== ENCOUNTER 2021-08-01 11:39 | Outpatient (RCR) | payer MEDICAID, SELFPAY ==
[2021-07-26 00:24] VITALS: BMI 60.3
== END 2021-08-24 23:59 ==
LOC: NS 11:39
PROVIDERS: Family Provider Family Medicine; PCP Family Medicine; Referring Provider Family Medicine; Visit Provider Family Medicine
DX: Z71.3 Dietary counseling and surveillance (principal); E66.01 Morbid (severe) obesity due to excess calories; Z68.43 Body mass index [BMI] 50.0-59.9, adult
CPT/HCPCS: 97803

== ENCOUNTER 2021-09-18 11:00 | Outpatient (RCR) | payer MEDICAID, SELFPAY ==
[2021-08-25 00:19] VITALS: BMI 60.3
== END 2021-09-24 23:59 ==
LOC: NS 11:00
PROVIDERS: Family Provider Family Medicine; PCP Family Medicine; Referring Provider Family Medicine; Visit Provider Family Medicine
DX: Z71.3 Dietary counseling and surveillance (principal); E66.01 Morbid (severe) obesity due to excess calories; Z68.43 Body mass index [BMI] 50.0-59.9, adult
CPT/HCPCS: 97803

== ENCOUNTER 2021-10-16 11:30 | Outpatient (RCR) | payer MEDICAID, SELFPAY ==
[2021-09-25 00:15] VITALS: BMI 60.3
== END 2021-10-24 23:59 ==
LOC: NS 11:30
PROVIDERS: Family Provider Family Medicine; PCP Family Medicine; Referring Provider Family Medicine; Visit Provider Family Medicine
DX: Z71.3 Dietary counseling and surveillance (principal); E66.01 Morbid (severe) obesity due to excess calories; Z68.43 Body mass index [BMI] 50.0-59.9, adult
CPT/HCPCS: 97803

== ENCOUNTER 2021-11-13 16:32 | Outpatient (RCR) | payer MEDICAID, SELFPAY ==
[2021-10-25 00:20] VITALS: BMI 60.3
== END 2021-11-24 23:59 ==
LOC: NS 16:32
PROVIDERS: Family Provider Family Medicine; PCP Family Medicine; Referring Provider Family Medicine; Visit Provider Family Medicine
DX: Z71.3 Dietary counseling and surveillance (principal); E66.01 Morbid (severe) obesity due to excess calories; Z68.43 Body mass index [BMI] 50.0-59.9, adult
CPT/HCPCS: 97803

== ENCOUNTER → 2021-11-15 12:36 | Outpatient (CLI) | payer MEDICAID, SELFPAY ==
[2021-11-15 15:18] LABS: Anion Gap 6 (5-15); BUN 19 mg/dL (7-18); BUN/Creat Ratio 23.4 RATIO (10-20); Calcium,Total 9.1 mg/dL (8.5-10.1); Chloride 104 mmol/L (98-107); Cholesterol 198 mg/dL (200); Creatinine, Serum 0.81 mg/dL (0.55-1.02); EST Glomerular Filtration Rate 79 mL/min (>60); Est Glom Filt Rate - Afr Amer 96 mL/min (>60); Glucose 99 mg/dL (74-106); High Density Lipoprotein 46 mg/dL; Potassium 4.3 mmol/L (3.5-5.1); Sodium Level 141 mmol/L (136-145); Triglycerides 166 mg/dL; Very Low Density Lipoprotein 33 mg/dL (5-40)
== END ==
PROVIDERS: PCP Family Medicine; Referring Provider Family Medicine; Visit Provider Family Medicine
DX: E11.9 Type 2 diabetes mellitus without complications (principal)
CPT/HCPCS: 36415; 80048; 80061

== ENCOUNTER 2021-12-19 10:30 | Outpatient (RCR) | payer MEDICAID, SELFPAY ==
[2021-11-25 00:19] VITALS: BMI 60.3
== END 2021-12-25 23:59 ==
LOC: NS 10:30
PROVIDERS: Family Provider Family Medicine; PCP Family Medicine; Referring Provider Family Medicine; Visit Provider Family Medicine
DX: Z71.3 Dietary counseling and surveillance (principal); E66.01 Morbid (severe) obesity due to excess calories
CPT/HCPCS: 97803

== ENCOUNTER 2022-01-07 15:46 | Emergency (ER) | payer MEDICAID, SELFPAY ==
[2022-01-07 15:49] VITALS: BP 170/97; PULSE 114; RESP 18; TEMP 36.7; O2SAT 98; BMI 51.9
--- NOTE | 2022-01-07 16:46 | CT_ITS ---
STUDY: CT BRAIN WITHOUT CONTRAST REASON FOR EXAM: Female, 51 years old. headache RADIATION DOSAGE (If Supplied By Facility): CTDIvol = ( 44.99 ) mGy, DLP = ( 829.85 ) mGycm TECHNIQUE: Transaxial CT imaging of the brain was performed without administration of intravenous contrast material. Individualized dose optimization techniques were used for this CT. COMPARISON: 08/04/2016. FINDINGS: Normal soft tissue structures. Normal calvarium. Normal size ventricles and extra-axial spaces for the patient''s age. Normal white matter tracts of the cerebral hemispheres. Normal basal ganglia and thalami. Normal brainstem. Normal cerebellum. There is no intracranial hemorrhage. There are no findings of an acute ischemic infarction. Normal visualized paranasal sinuses. CT/Brain/Head without Contrast IMPRESSION: Normal unenhanced CT scan of the brain. Electronically Signed: Lilli Gaming MD at 18:12 EST Reading Location ID and State: [id number] / Tel , Service support ,
--- NOTE | 2022-01-07 16:47 | EDS_ITS ---
HPI History of Present Illness Chief Complaint: Headache Narrative Narrative: Patient presents with headache that she has had since this morning. She has had problems with headaches recently, but states she used to have them in the past and had gone away. Everything was fine yesterday, but she states she awoke this morning and had pressure sensation on the back of her head as if someone with a big hand was pressing on the back of her head. It radiates downward towards her neck. She does have pain in her neck secondary to arthritis. She denies any nausea or vomiting. No fevers or chills. No photophobia or phonophobia. No numbness or tingling of her arms or legs that is new for her. No real exacerbating or alleviating factors. She did take Tylenol this morning which seemed to help her a little bit. [facility] Medical History (Updated 01/07/22 @ 19:07 by Ruben Fagan MD) Diabetes type 2, controlled HTN (hypertension) Home Medications bupropion HCl 300 mg PO DAILY 03/20/16 [History Last Taken Unknown] gabapentin 300 mg PO BIDCM 03/20/16 [History Last Taken Unknown] meloxicam 15 mg PO DAILY 03/20/16 [History Last Taken Unknown] methylphenidate HCl 10 mg PO DAILY 03/20/16 [History Last Taken Unknown] venlafaxine 150 mg PO DAILY 03/20/16 [History Last Taken Unknown] omeprazole 20 mg capsule,delayed release 40 mg PO BID cap 12/17/17 [History Last Taken Unknown] ziprasidone HCl 20 mg capsule 20 mg PO ONCE cap 12/17/17 [History Last Taken Unknown] hydrochlorothiazide 12.5 mg capsule 12.5 mg PO QDAY 12/25/17 [History Last Taken Unknown] naproxen 500 mg tablet 500 mg PO TID tab 08/13/18 [History Last Taken Unknown] tramadol 50 mg tablet 50 mg PO TID tab 08/13/18 [History Last Taken Unknown] blood sugar diagnostic #100 ea 10/27/18 [Rx Last Taken Unknown] Allergy/AdvReac Type Severity Reaction Status Date / Time adhesive AdvReac Rash Verified 01/07/22 15:48 pine AdvReac Rash Uncoded 01/07/22 15:48 Family History Mother Heart disease Arthritis Surgical History H/O: hysterectomy H/O: hysterectomy History of tonsillectomy History of tonsillectomy Social History Smoking Status: Never smoker second hand exposure: No alcohol intake: never substance use type: does not use ROS ROS ED ROS Narrative Constitutional: No fever, no chills. HEENT: No sore throat. No neck pain. No loss of vision. No rhinorrhea. Cardiovascular: No chest pain. No palpitations. No pedal edema. Respiratory: No cough, no shortness of breath. Abdominal: No abdominal pain. No nausea. No vomiting. Genitourinary: No dysuria. No hematuria. Musculoskeletal: No myalgias. No arthralgias. Neurologic: Positive headaches. No dizziness. No lightheadedness. Skin: No rash. No change in color. Psychiatric: No depression. No anxiety. EXAM Physical Exam Narrative Exam Narrative: Afebrile. Vital signs noted. HEENT: Normocephalic. Atraumatic. PERRL, EOMI. Neck soft and supple. No point tenderness or step off. Full range of motion of neck without pain. Cardiovascular: Regular rate and rhythm. No murmurs, rubs, or gallops appreciated. Respiratory: No tachypnea. Lungs clear to auscultation bilaterally. Gastrointestinal: Abdomen soft, nontender, with normoactive bowel sounds. No rebound or guarding. Neurological: Awake. Alert. Oriented x3. Nonfocal, nonlateralizing. Skin: No rash. Normal color. No pallor. Musculoskeletal: No pedal edema. Full range of motion extremities. Const Vital Signs: 01/07/22 15:49 01/07/22 18:31 Temperature 98.1 F Temperature Source Temporal Pulse Rate 114 H 84 Respiratory Rate 18 18 Blood Pressure 170/97 H 152/79 H Blood Pressure Mean 121 103 Pulse Ox 98 95 Oxygen Delivery Method Room Air Room Air MDM MDM MDM Narrative Medical decision making narrative: I do feel that the patient may have more of an occipital neuralgia. She is already on gabapentin. As this is her first dealing with headaches in a long time, I will obtain a CT of the brain. She was administered Toradol [address] of the brain does not show anything acute, and upon repeat examination she is feeling mildly improved with her headache. While she states she also feels jittery, she states that she has been put on methylphenidate. I do have a feeling that that has something to do with her jitteriness. She will call her primary care physician to see if she still should be taking this. As far as her headache and pressure is concerned she may have bilateral occipital neuralgia. She states she already takes gabapentin and is prescribed 300 mg 3 times a day but she only usually takes 2 doses. She was told to increase the dosing to 3 times a day as previously prescribed. I feel she can be discharged safely home with follow-up to her primary care physician tomorrow. Return instructions were reviewed. Disposition is discharged home in stable condition. Radiography Diagnostic Testing: Clinical Impression(s) from Imaging Studies Brain CT 01/07/22 16:46 IMPRESSION: Normal unenhanced CT scan of the brain. Electronically Signed: Lilli Gaming MD at 18:12 EST Reading Location ID and State: [id number] / Tel , Service support , Discharge Plan Triage Chief Complaint: Headache Other Complaint: Anxiety ED Provider: Ruben Fagan Dx/Rx/DC Orders Clinical Impression: Headache, Bilateral occipital neuralgia, Feeling jittery Instructions: ED Headache Unspecified Prescriptions: No Action hydrochlorothiazide 12.5 mg capsule 12.5 mg PO QDAY RF: 0 ziprasidone HCl [Geodon] 20 mg capsule 20 mg PO ONCE RF: 0 tramadol 50 mg tablet 50 mg PO TID RF: 0 naproxen [Naprosyn] 500 mg tablet 500 mg PO TID RF: 0 (DME) FreeStyle Test strip See Dose Instructions .ROUTE .MEDSUPPLY Qty: 100 RF: 11 methylphenidate HCl 10 MG tablet 10 mg PO DAILY RF: 0 meloxicam 15 MG tablet 15 mg PO DAILY RF: 0 venlafaxine 150 MG capsule 150 mg PO DAILY RF: 0 gabapentin 300 MG capsule 300 mg PO BIDCM RF: 0 bupropion HCl 300 MG tablet extended release 24 hr 300 mg PO DAILY RF: 0 omeprazole 20 MG capsule 40 mg PO BID RF: 0 Primary Care Provider: Shaheen Ocampo Referrals: Shaheen Ocampo MD [Primary Care Provider] - 01/08/22 Disposition Disposition: Home, Self Care
[2022-01-07] MEDS: Ketorolac 60 MG/2 ML Vial IM (16:53)
[2022-01-07 18:31] VITALS: BP 152/79; PULSE 84; RESP 18; O2SAT 95
== END 2022-01-07 19:25 | disposition home or self-care (01) ==
PROVIDERS: Emergency Provider Emergency Medicine; PCP Family Medicine; Visit Provider Emergency Medicine
DX: M54.81 Occipital neuralgia (principal); E11.9 Type 2 diabetes mellitus without complications; F41.9 Anxiety disorder, unspecified; M19.90 Unspecified osteoarthritis, unspecified site; I10 Essential (primary) hypertension; Z79.899 Other long term (current) drug therapy
CPT/HCPCS: 70450; 96372; 99282

== ENCOUNTER 2022-01-22 11:00 | Outpatient (RCR) | payer MEDICAID, SELFPAY ==
[2021-12-26 00:23] VITALS: BMI 60.3
== END 2022-01-22 23:59 ==
LOC: NS 11:00
PROVIDERS: Family Provider Family Medicine; PCP Family Medicine; Referring Provider Family Medicine; Visit Provider Family Medicine
DX: Z71.3 Dietary counseling and surveillance (principal); E66.01 Morbid (severe) obesity due to excess calories
CPT/HCPCS: 97803

== ENCOUNTER 2022-02-05 10:58 | Outpatient (RCR) | payer MEDICAID, SELFPAY ==
[2022-01-23 00:24] VITALS: BMI 60.3
== END 2022-02-22 23:59 ==
LOC: NS 10:58
PROVIDERS: Family Provider Family Medicine; PCP Family Medicine; Referring Provider Family Medicine; Visit Provider Family Medicine
DX: Z71.3 Dietary counseling and surveillance (principal); E66.01 Morbid (severe) obesity due to excess calories
CPT/HCPCS: 97803

== ENCOUNTER 2022-03-05 09:34 | Outpatient (RCR) | payer MEDICAID, SELFPAY ==
[2022-02-23 00:25] VITALS: BMI 60.3
== END 2022-03-24 23:59 ==
LOC: NS 09:34
PROVIDERS: Family Provider Family Medicine; PCP Family Medicine; Referring Provider Family Medicine; Visit Provider Family Medicine
DX: Z71.3 Dietary counseling and surveillance (principal); E66.01 Morbid (severe) obesity due to excess calories
CPT/HCPCS: 97803

== ENCOUNTER → 2022-03-21 | Outpatient (CLI) | payer MEDICAID, SELFPAY ==
[2022-03-21 15:25] LABS: Vista UDS pH Range 6
[2022-03-21 15:26] LABS: Amphetamine Urine VISTA NEGATIVE (<1000 ng/mL); Barbiturate Urine VISTA NEGATIVE (< 200 ng/mL); Benzodiazepine Urine VISTA NEGATIVE (< 200 ng/mL); Cocaine Urine VISTA NEGATIVE (< 300 ng/mL); Ecstacy Urine VISTA POSITIVE (< 500 ng/mL); Methadone Urine VISTA NEGATIVE (< 300 ng/mL); PCP Urine VISTA NEGATIVE (< 25 ng/mL); THC Urine VISTA NEGATIVE (< 50 ng/mL)
== END | disposition home or self-care (01) ==
PROVIDERS: PCP Family Medicine; Visit Provider Anesthesiology Pain Medicine
DX: F11.20 Opioid dependence, uncomplicated (principal)
CPT/HCPCS: 80307

== ENCOUNTER 2022-03-27 10:55 | Outpatient (RCR) | payer MEDICAID, SELFPAY ==
[2022-03-25 00:24] VITALS: BMI 60.3
== END 2022-04-24 23:59 ==
LOC: NS 10:55
PROVIDERS: Family Provider Family Medicine; PCP Family Medicine; Referring Provider Family Medicine; Visit Provider Family Medicine
DX: Z71.3 Dietary counseling and surveillance (principal); E66.01 Morbid (severe) obesity due to excess calories; Z68.43 Body mass index [BMI] 50.0-59.9, adult
CPT/HCPCS: 97803

== ENCOUNTER 2022-05-17 09:47 | Outpatient (RCR) | payer MEDICAID, SELFPAY ==
[2022-04-25 00:39] VITALS: BMI 60.3
== END 2022-05-24 23:59 ==
LOC: NS 09:47
PROVIDERS: Family Provider Family Medicine; PCP Family Medicine; Referring Provider Family Medicine; Visit Provider Family Medicine
DX: Z71.3 Dietary counseling and surveillance (principal); E66.01 Morbid (severe) obesity due to excess calories; Z68.43 Body mass index [BMI] 50.0-59.9, adult
CPT/HCPCS: 97803

== ENCOUNTER 2022-06-19 10:19 | Outpatient (RCR) | payer MEDICAID, SELFPAY ==
[2022-05-25 00:25] VITALS: BMI 60.3
== END 2022-06-24 23:59 ==
LOC: NS 10:19
PROVIDERS: Family Provider Family Medicine; PCP Family Medicine; Referring Provider Family Medicine; Visit Provider Family Medicine
DX: Z71.3 Dietary counseling and surveillance (principal); E66.01 Morbid (severe) obesity due to excess calories; Z68.43 Body mass index [BMI] 50.0-59.9, adult
CPT/HCPCS: 97803

== ENCOUNTER 2022-07-31 11:00 | Outpatient (CLI) | payer MEDICAID, SELFPAY ==
[2022-07-31 12:30] LABS: Anion Gap 7 (5-15); BUN 16 mg/dL (7-18); BUN/Creat Ratio 20.9 RATIO (10-20); Calcium,Total 8.8 mg/dL (8.5-10.1); Chloride 103 mmol/L (98-107); Cholesterol 166 mg/dL (200); Creatinine, Serum 0.76 mg/dL (0.55-1.02); EST Glomerular Filtration Rate 85 mL/min (>60); Est Glom Filt Rate - Afr Amer 103 mL/min (>60); Glucose 107 mg/dL (74-106); High Density Lipoprotein 41 mg/dL; Potassium 4.3 mmol/L (3.5-5.1); Sodium Level 139 mmol/L (136-145); Triglycerides 254 mg/dL; Very Low Density Lipoprotein 51 mg/dL (5-40)
== END 2022-07-31 23:59 | disposition home or self-care (01) ==
PROVIDERS: PCP Family Medicine; Referring Provider Family Medicine; Visit Provider Family Medicine
DX: E11.9 Type 2 diabetes mellitus without complications (principal); E66.01 Morbid (severe) obesity due to excess calories; Z68.43 Body mass index [BMI] 50.0-59.9, adult; Z71.3 Dietary counseling and surveillance
CPT/HCPCS: 36415; 80048; 80061; 97803

== ENCOUNTER 2022-08-16 10:30 | Outpatient (RCR) | payer MEDICAID, SELFPAY ==
[2022-06-25 00:21] VITALS: BMI 60.3
== END 2022-08-24 23:59 ==
LOC: NS 10:30
PROVIDERS: Family Provider Family Medicine; PCP Family Medicine; Referring Provider Family Medicine; Visit Provider Family Medicine
DX: Z71.3 Dietary counseling and surveillance (principal); E66.01 Morbid (severe) obesity due to excess calories; Z68.43 Body mass index [BMI] 50.0-59.9, adult
CPT/HCPCS: 97803

== ENCOUNTER 2022-10-15 10:32 | Outpatient (RCR) | payer MEDICAID, SELFPAY ==
[2022-08-25 00:21] VITALS: BMI 60.3
== END 2022-10-24 23:59 ==
LOC: NS 10:32
PROVIDERS: Family Provider Family Medicine; PCP Family Medicine; Referring Provider Family Medicine; Visit Provider Family Medicine
DX: Z71.3 Dietary counseling and surveillance (principal); E66.01 Morbid (severe) obesity due to excess calories; Z68.43 Body mass index [BMI] 50.0-59.9, adult
CPT/HCPCS: 97803

== ENCOUNTER 2022-11-01 11:23 | Outpatient (RCR) | payer MEDICAID, SELFPAY ==
[2022-10-25 00:06] VITALS: BMI 60.3
== END 2022-11-24 23:59 ==
LOC: NS 11:23
PROVIDERS: Family Provider Family Medicine; PCP Family Medicine; Referring Provider Family Medicine; Visit Provider Family Medicine
DX: Z71.3 Dietary counseling and surveillance (principal); E66.01 Morbid (severe) obesity due to excess calories; Z68.43 Body mass index [BMI] 50.0-59.9, adult
CPT/HCPCS: 97803

== ENCOUNTER 2022-12-03 16:28 | Outpatient (RCR) | payer MEDICAID, SELFPAY ==
[2022-11-25 00:09] VITALS: BMI 60.3
== END 2022-12-25 23:59 ==
LOC: NS 16:28
PROVIDERS: Family Provider Family Medicine; PCP Family Medicine; Referring Provider Family Medicine; Visit Provider Family Medicine
DX: Z71.3 Dietary counseling and surveillance (principal); E66.01 Morbid (severe) obesity due to excess calories; Z68.43 Body mass index [BMI] 50.0-59.9, adult
CPT/HCPCS: 97803

== ENCOUNTER → 2023-01-08 | Outpatient (CLI) | payer MEDICAID, SELFPAY ==
[2023-01-08 17:07] LABS: Amphetamine Urine VISTA NEGATIVE (<1000 ng/mL); Barbiturate Urine VISTA NEGATIVE (< 200 ng/mL); Benzodiazepine Urine VISTA NEGATIVE (< 200 ng/mL); Cocaine Urine VISTA NEGATIVE (< 300 ng/mL); Ecstacy Urine VISTA POSITIVE (< 500 ng/mL); Methadone Urine VISTA NEGATIVE (< 300 ng/mL); PCP Urine VISTA NEGATIVE (< 25 ng/mL); THC Urine VISTA NEGATIVE (< 50 ng/mL); Vista UDS pH Range 6
== END | disposition home or self-care (01) ==
PROVIDERS: PCP Family Medicine; Visit Provider Anesthesiology Pain Medicine
DX: F11.20 Opioid dependence, uncomplicated (principal)
CPT/HCPCS: 80307

== ENCOUNTER 2023-01-21 11:00 | Outpatient (RCR) | payer MEDICAID, SELFPAY ==
[2022-12-26 00:21] VITALS: BMI 60.3
== END 2023-01-22 23:59 ==
LOC: NS 11:00
PROVIDERS: Family Provider Family Medicine; PCP Family Medicine; Referring Provider Family Medicine; Visit Provider Family Medicine
DX: Z71.3 Dietary counseling and surveillance (principal); E66.01 Morbid (severe) obesity due to excess calories; Z68.43 Body mass index [BMI] 50.0-59.9, adult
CPT/HCPCS: 97803

== ENCOUNTER 2023-02-18 13:44 | Outpatient (RCR) | payer MEDICAID, SELFPAY ==
[2023-01-23 00:15] VITALS: BMI 60.3
== END 2023-02-22 23:59 ==
LOC: NS 13:44
PROVIDERS: Family Provider Family Medicine; PCP Family Medicine; Referring Provider Family Medicine; Visit Provider Family Medicine
DX: Z71.3 Dietary counseling and surveillance (principal); E66.01 Morbid (severe) obesity due to excess calories; Z68.43 Body mass index [BMI] 50.0-59.9, adult
CPT/HCPCS: 97803

== ENCOUNTER 2023-03-04 12:23 | Outpatient (RCR) | payer MEDICAID, SELFPAY ==
[2023-02-23 01:18] VITALS: BMI 60.3
== END 2023-03-24 23:59 ==
LOC: NS 12:23
PROVIDERS: Family Provider Family Medicine; PCP Family Medicine; Referring Provider Family Medicine; Visit Provider Family Medicine
DX: Z71.3 Dietary counseling and surveillance (principal); E66.01 Morbid (severe) obesity due to excess calories; Z68.43 Body mass index [BMI] 50.0-59.9, adult
CPT/HCPCS: 97803

== ENCOUNTER → 2023-03-04 | Outpatient (CLI) | payer MEDICAID, SELFPAY ==
[2023-03-04 14:06] LABS: Microalbumin,Random Urine 10.4 mg/L (NO RANGE EST.); Microalbumin:Creatinine Ratio 8.4 mg/g CRE (<30 mg/g CRE)
[2023-03-04 14:11] LABS: Anion Gap 4 (5-15); BUN 15 mg/dL (7-18); BUN/Creat Ratio 18.5 RATIO (10-20); Calcium,Total 9.2 mg/dL (8.5-10.1); Chloride 105 mmol/L (98-107); Cholesterol 202 mg/dL (200); Creatinine, Serum 0.81 mg/dL (0.55-1.02); EST Glomerular Filtration Rate 79 mL/min (>60); Est Glom Filt Rate - Afr Amer 96 mL/min (>60); Glucose 123 mg/dL (74-106); High Density Lipoprotein 46 mg/dL; Potassium 3.7 mmol/L (3.5-5.1); Sodium Level 136 mmol/L (136-145); Triglycerides 194 mg/dL; Very Low Density Lipoprotein 39 mg/dL (5-40)
== END | disposition home or self-care (01) ==
LOC: LAB 12:57
PROVIDERS: PCP Family Medicine; Referring Provider Family Medicine; Visit Provider Family Medicine
DX: Z71.3 Dietary counseling and surveillance (principal); E66.01 Morbid (severe) obesity due to excess calories; Z68.43 Body mass index [BMI] 50.0-59.9, adult; E11.9 Type 2 diabetes mellitus without complications
CPT/HCPCS: 36415; 80048; 80061; 82043; 82570; 97803

== ENCOUNTER 2023-04-24 09:00 | Outpatient (RCR) | payer MEDICAID, SELFPAY ==
[2023-03-25 00:25] VITALS: BMI 60.3
== END 2023-04-24 23:59 ==
LOC: NS 09:00
PROVIDERS: Family Provider Family Medicine; PCP Family Medicine; Referring Provider Family Medicine; Visit Provider Family Medicine
DX: Z71.3 Dietary counseling and surveillance (principal); E66.01 Morbid (severe) obesity due to excess calories; Z68.43 Body mass index [BMI] 50.0-59.9, adult
CPT/HCPCS: 97803

== ENCOUNTER 2023-05-23 09:25 | Outpatient (RCR) | payer MEDICAID, SELFPAY ==
[2023-04-25 00:24] VITALS: BMI 60.3
== END 2023-05-24 23:59 ==
LOC: NS 09:25
PROVIDERS: Family Provider Family Medicine; PCP Family Medicine; Referring Provider Family Medicine; Visit Provider Family Medicine
DX: Z71.3 Dietary counseling and surveillance (principal); E66.01 Morbid (severe) obesity due to excess calories; Z68.43 Body mass index [BMI] 50.0-59.9, adult
CPT/HCPCS: 97803

== ENCOUNTER 2023-06-19 09:00 | Outpatient (RCR) | payer MEDICAID, SELFPAY ==
[2023-05-25 00:55] VITALS: BMI 60.3
== END 2023-06-24 23:59 | disposition home or self-care (01) ==
LOC: NS 09:00
PROVIDERS: Family Provider Family Medicine; PCP Family Medicine; Referring Provider Family Medicine; Visit Provider Family Medicine
DX: Z71.3 Dietary counseling and surveillance (principal); E66.01 Morbid (severe) obesity due to excess calories; Z68.43 Body mass index [BMI] 50.0-59.9, adult
CPT/HCPCS: 97803

== ENCOUNTER 2023-07-17 09:30 | Outpatient (RCR) | payer MEDICAID, SELFPAY ==
[2023-06-25 00:16] VITALS: BMI 60.3
== END 2023-07-25 23:59 ==
LOC: NS 09:30
PROVIDERS: Family Provider Family Medicine; PCP Family Medicine; Referring Provider Family Medicine; Visit Provider Family Medicine
DX: Z71.3 Dietary counseling and surveillance (principal); E66.01 Morbid (severe) obesity due to excess calories; Z68.43 Body mass index [BMI] 50.0-59.9, adult
CPT/HCPCS: 97803

== ENCOUNTER → 2023-08-05 | Outpatient (CLI) | payer MEDICAID, SELFPAY ==
[2023-08-05 13:09] LABS: ALB/GLOB Ratio 0.8 RATIO (0.9-2.4); AST(SGOT) 23 U/L (15-37); Alanine Aminotransfer ALT/SGPT 34 U/L (13-56); Albumin, Serum 3.4 g/dL (3.2-5.0); Alkaline Phosphatase 95 U/L (45-117); Anion Gap 6 (5-15); BUN 22 mg/dL (7-18); BUN/Creat Ratio 26.9 RATIO (10-20); Calcium,Total 9.4 mg/dL (8.5-10.1); Chloride 104 mmol/L (98-107); Cholesterol 176 mg/dL (200); Creatinine, Serum 0.82 mg/dL (0.55-1.02); EST Glomerular Filtration Rate 78 mL/min (>60); Est Glom Filt Rate - Afr Amer 94 mL/min (>60); Globulin 4.4 g/dL (2.2-4.2); Glucose 100 mg/dL (74-106); High Density Lipoprotein 49 mg/dL; Potassium 4.4 mmol/L (3.5-5.1); Protein, Total 7.8 g/dL (6.4-8.2); Sodium Level 137 mmol/L (136-145); Triglycerides 127 mg/dL; Very Low Density Lipoprotein 25 mg/dL (5-40)
[2023-08-05 13:32] LABS: Hemoglobin A1c 5.3 % (3.8-5.6)
== END | disposition home or self-care (01) ==
LOC: MFPLAB 10:18
PROVIDERS: PCP Family Medicine; Visit Provider Family Medicine
DX: I10 Essential (primary) hypertension (principal); E11.9 Type 2 diabetes mellitus without complications
CPT/HCPCS: 36415; 80053; 80061; 83036

== ENCOUNTER → 2023-08-07 | Outpatient (CLI) | payer MEDICAID, SELFPAY ==
--- NOTE | 2023-08-07 09:01 | BI_ITS ---
MAMMOGRAPHY - BILATERAL SCREENING REASON FOR EXAM: Female, 53 years old. Routine annual screening examination. PERTINENT HISTORY: Non-contributory. TECHNIQUE: Digital bilateral breast viral (3D mammographic acquisition) in the CC and MLO projections. 2-D mediolateral oblique (MLO) and craniocaudad (CC) views of both breasts were obtained. CAD: Full Field Digital Mammography with Computer Added Detection was performed. COMPARISON: Comparison is made with prior outside examination dated August 29, 2016. FINDINGS: Breast Composition: The breasts are almost entirely fatty. There are no dominant masses or suspicious calcifications. Stable benign appearing bilateral axillary lymph nodes. No other significant abnormalities are identified. There has been no significant change since the prior study. BI/SCRN MAMM (CAD)W/VIRAL BILAT IMPRESSION: Stable bilateral screening mammogram. Yearly follow-up mammogram recommended. (A) ASSESSMENT CATEGORY: BIRADS Category 2: Benign. A letter regarding these results will be sent to the patient by the facility within 30 days. Approximately 10% of breast cancers are not detected by mammography. A normal mammogram should not delay biopsy of a clinically suspicious abnormality. [id number] Electronically Signed: Sunil Bose MD at 10:59 EDT ,
== END | disposition home or self-care (01) ==
LOC: OPBI 09:00
PROVIDERS: PCP Family Medicine; Referring Provider Family Medicine; Visit Provider Family Medicine
DX: Z12.31 Encounter for screening mammogram for malignant neoplasm of breast (principal)
CPT/HCPCS: 77063; 77067

== ENCOUNTER 2023-08-22 09:00 | Outpatient (RCR) | payer MEDICAID, SELFPAY ==
[2023-07-26 00:11] VITALS: BMI 60.3
== END 2023-08-24 23:59 ==
LOC: NS 09:00
PROVIDERS: Family Provider Family Medicine; PCP Family Medicine; Referring Provider Family Medicine; Visit Provider Family Medicine
DX: Z71.3 Dietary counseling and surveillance (principal); E66.01 Morbid (severe) obesity due to excess calories; Z68.43 Body mass index [BMI] 50.0-59.9, adult
CPT/HCPCS: 97803

== ENCOUNTER → 2023-09-11 | Outpatient (CLI) | payer MEDICAID, SELFPAY ==
--- NOTE | 2023-09-11 12:10 | NEURO ---
NCS and/or EMG Patient Report Ordering Doctor: Ifeanyi Jacob DATE OF SERVICE: 09/11/23 Leelee is for electrodiagnostic testing of the upper limbs. She reports numbness and tingling in both hands, fairly equal on both sides. She reports this is primarily in digits 1-3 Electrodiagnostic findings: Right median motor nerve demonstrates prolonged distal latency with reduced amplitude and reduced conduction velocity. Left median motor nerve demonstrates prolonged distal latency with reduced amplitude. Ulnar motor response is within normal limits bilaterally. Absent right median F-wave. Absent median sensory latency at the wrist. Absent median sensory latency at the left palm. Prolonged right median palmar latency. Needle EMG testing was performed in the upper limbs. All muscles tested showed no evidence of denervation with normal motor unit action potentials. Electrodiagnostic impression: This is an abnormal study in the upper limbs 1. 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 This is consistent with a severe bilateral carpal tunnel syndrome. 2. No electrodiagnostic evidence is noted for cervical radiculopathy Multi Select Codes Neurology Neurology Interp Codes: 33311-88 Musc test done w/n test comp (interp) (2) and 83030-49 Nrv cndj test 13/> studies (interp)
== END | disposition home or self-care (01) ==
LOC: PSN 10:03
PROVIDERS: PCP Family Medicine; Referring Provider Orthopaedic Surgery; Visit Provider Orthopaedic Surgery
DX: G56.03 Carpal tunnel syndrome, bilateral upper limbs (principal)
CPT/HCPCS: 95886; 95913

== ENCOUNTER 2023-10-16 09:00 | Outpatient (RCR) | payer MEDICAID, SELFPAY ==
[2023-08-25 00:13] VITALS: BMI 60.3
== END 2023-10-24 23:59 ==
LOC: NS 09:00
PROVIDERS: Family Provider Family Medicine; PCP Family Medicine; Referring Provider Family Medicine; Visit Provider Family Medicine
DX: Z71.3 Dietary counseling and surveillance (principal); E66.01 Morbid (severe) obesity due to excess calories; Z68.42 Body mass index [BMI] 45.0-49.9, adult
CPT/HCPCS: 97803

== ENCOUNTER 2023-10-29 12:24 | Day surgery (SDC) | payer MEDICAID, SELFPAY ==
[2023-10-29 13:07] VITALS: BP 138/80; PULSE 96; RESP 18; TEMP 36.7; O2SAT 97; BMI 46.4
[2023-10-29] MEDS: Lactated Ringers 1,000 ML 15 ML IV (13:13)
--- NOTE | 2023-10-29 13:50 | PCM.HP.BLA ---
History and Physical Date of Admission: 10/29/23 [facility] [id number] [place] [address] OFFICE VISIT Date of Service: 10/07/23 MR#: [id number] Acct: [id number] Name: LEELEE LONGO Rep #: [id number] : 1970 Provider: Dr. Ifeanyi Jacob DO Age/Sex: 53/F Location: [facility] [place] Status: Signed Intake Vital Signs 08/22/2309:00 Height 5 ft 3 in Intake Visit Reasons: BL HANDS Is patient in pain?: Yes Allergies Environmental Allergies: Uncoded [pine] Allergy (Verified 10/07/23 13:05) Rashadhesive Adverse Reaction (Verified 10/07/23 13:05) Rash Medications bupropion HCl 300 mg 24 hr tablet, extended release 300 mg PO DAILY 03/20/16 [History Confirmed 10/07/23] gabapentin 300 mg capsule 300 mg PO BIDCM 03/20/16 [History Confirmed 10/07/23] meloxicam 15 mg tablet 15 mg PO DAILY 03/20/16 [History Confirmed 10/07/23] ziprasidone HCl 20 mg capsule (Geodon) 20 mg PO ONCE 12/17/17 [History Confirmed 10/07/23] tramadol 50 mg tablet 50 mg PO TID 08/13/18 [History Confirmed 10/07/23] blood sugar diagnostic (FreeStyle Test strips) #100 ea 10/27/18 [Rx Confirmed 10/07/23] acetaminophen 325 mg capsule 325 mg PO ONCE PRN 01/15/23 [History Confirmed 10/07/23] lisinopril 2.5 mg tablet 2.5 mg PO DAILY 01/15/23 [History Confirmed 10/07/23] loratadine 10 mg tablet (Allergy Relief (loratadine)) 10 mg PO DAILY 01/15/23 [History Confirmed 10/07/23] venlafaxine 150 mg capsule,extended release 24 hr 150 mg PO DAILY 01/15/23 [History Confirmed 10/07/23] B-complex with vitamin C 1 cap PO DAILY 08/21/23 [History Confirmed 10/07/23] cholecalciferol (vitamin D3) 25 mcg (1,000 unit) capsule 25 mcg PO DAILY 08/21/23 [History Confirmed 10/07/23] metformin 500 mg tablet,extended release 24 hr mg PO 08/21/23 [History Confirmed 10/07/23] PFSH Medical History (Updated 08/21/23 @ 11:[address] Ifeanyi Jacob, ) Diabetes type 2, controlled HTN (hypertension) Surgical History H/O: hysterectomy H/O: hysterectomy History of tonsillectomy History of tonsillectomy Family History Mother Heart disease Arthritis Social History (Updated 08/21/23 @ 10:27 by Leelee Atkinson) household members: none Smoking Status: Never smoker second hand exposure: No alcohol intake: never substance use type: does not use HPI BL HANDS Details: This documentation accurately reflects the service provided and the decisions made by me, Dr. Ifeanyi Jacob DO 10/07/23 0945. Part of today?s visit was documented by Leelee Atkinson ATC acting as scribe. LEELEE LONGO is a 53 year old F here today for a followup on her bilateral wrists. She had an EMG which is here for review. Patient notes that she continues to have numbness and tingling in the radial three digits. this as been limiting her ability to croshe , and waking he up at night and driving, She has numbness into her thumb, index and middle fingers primarily but at times she gets numbness into all of her fingers. Patient has weakness as well. She is right hand dominant. Patient has wrist splints which is helpful. Ortho Exam General General: Yes no acute distress Neurologic: Yes alert and Yes oriented x3 Psychologic: Yes reasonable and appropriate Right Wrist/Hand Skin/Wound: No Swelling, No Ecchymosis, Yes nail intact and Yes capillary refill normal WRIST: full supination and pronation, 75 extention, full flexion Left Wrist/Hand Skin/Wound: No Swelling, No Ecchymosis and Yes capillary refill normal WRIST: supination 75, full pronation Head: Normocephalic Atraumatic Chest: symmetrical rise, non-labored breathing, no audible wheeze Abdomen: no guarding, non-rigid Supplemental Info 09/11/2023 EMG bilateral upper extremity:1. 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 This is consistent with a severe bilateral carpal tunnel syndrome. 2. No electrodiagnostic evidence is noted for cervical radiculopathy 05/09/2021 x-ray right hip: Advanced hip arthrosis with significant bone wear 05/09/2021 x-ray left hip:Advanced hip arthrosis with significant bone wear Coding Level of Care Code Off vis,est,level 3 Diagnoses Bilateral carpal tunnel syndrome G56.03 Assessment and Plan Assessment and Plan (1) Bilateral carpal tunnel syndrome: Status: Acute Plan Spoke with the patient about having severe carpal tunnel syndrome. Spoke with her about her options- bracing or injections. Due to the severity of the carpal tunnel syndrome, recommended open carpal tunnel release. Explained the goal of surgery is to release pressure on the nerve however the nerve itself may take time to function normally and sometimes it never comes back. She has a 1/2 pound restriction for the first few weeks. She would like to proceed with surgery at this time for her right hand. Spoke with her about the benefits and risks of the surgery including incisional hypersensitivity pillar pain postoperative restrictions expected postoperative course continued symptoms. She is unable to take NSAIDs 7 days prior to surgery. Tentative surgery date October 29, 2023 Follow up for 2 week post op or sooner if pain, swelling, numbness or associated symptoms, or concerns develop. All questions answered. Patient in agreement of plan. 10/07/23 1342 <Electronically signed by Ifeanyi Jacob DO> Date Ifeanyi Jacob DO Cosigner Signature: Date (if applicable) CC: ~ I have examined the patient and the H&P has been reviewed. There are no clinical changes since date of exam.
[2023-10-29] MEDS: Cefazolin 2 GM in 0.9% Normal Saline (100mL Bag) 100 ML IV (14:08)
[2023-10-29] MEDS: Lidocaine 1% /Epi 1:100 (50ml) 50 ML VIAL OPERA.SITE (14:31)
--- NOTE | 2023-10-29 14:39 | OP.PCM_ITS ---
Operative Report Date of Procedure: 10/29/23 Preoperative diagnosis; right carpal tunnel syndrome Postoperative diagnosis; same Procedure: Right open carpal tunnel release Anesthesia: Local with MAC Tourniquet time; 11 minutes 250 mm Hg Complications: None Indication for procedure; This is a 53-year-old female with long-standing s ymptoms consistent with carpal tunnel syndrome the patient did have electrodiagnostic evidence of this and has failed conservative treatment. Risks benefits and alternatives were reviewed including risks of bleeding infection nerve artery tissue damage need for further surgery and continued pain and symptoms, hypersensitivity to scar and Pillar pain. Procedure; The patient was met in the preoperative holding area the operative extremity was identified by both patient and physician and was marked the patient was met by anesthesia and brought back to the operating room and transferred to the operating table in the supine position. Anesthesia was started. A well-padded tourniquet was placed on the operative upper extremity. The patient was prepped and draped in the usual sterile fashion. A timeout was called to ensure the proper patient procedure and extremity were being contemplated. 0.5 percent lidocaine with epinephrine was injected into the incisional area. An Esmarch was used to exsanguinate the extremity. The tourniquet was inflated to 250 mmHg. A midline incision was made with a 15 blade scalpel between the thenar and hypothenar eminence. This was carried down through the skin and subcutaneous tissue. Adrian retractors were then used, a deep blade scalpel was used to make a deep incision in the palmar aponeurosis. The adrian retractors were then placed deep to this and the transverse carpal ligament was identified a perforation was made with a scalpel and a Littler scissors were used to complete the release of the transverse carpal ligament distally under direct visualization with the tips facing ulnarly until the perivascular fat was reached. Then turning our attention proximally using a tension slide technique the proximal extent of the transverse carpal ligament was released . There was noted to be hourglass configuration to the median nerve and hypertrophy of the transverse carpal ligament without other findings. The wound was thoroughly irrigated and was closed with 4-0 nylon vertical mattress stitches. Dressing was applied in the form of xeroform 4 x 4, web roll and an donna wrap. Tourniquet was let down there is no intraoperative complications patient tolerated the procedure well and was transferred to the PACU. All counts were correct.
--- NOTE | 2023-10-29 14:40 | DCINST_ITS ---
Discharge Instructions Diet Discharge Diet: No restrictions Dressing / Incision Call your doctor if you observe: Shortness of breath and Chest pain Additional Dressing/Incision Instructions:: Ice and elevate operative extremity next 72 hours. Keep dressing on clean and dry for 48 hours then may remove and allow warm soapy water to rinse over incision but do not submerge until sutures are out. Then apply bandaid over incision and change daily. encourage finger range of motion. Not lift more than 1/2 pound. Minimize narcotic use only as needed and directed, may use OTC NSAID and Tylenol to supplement/substitute for pain control. Follow Up Care Please Follow Up With: Ifeanyi Jacob DO When: 2 weeks Test Results: Test results from this visit will be discussed in further detail at your follow- up appointment, if applicable. Discharge Plan Admission Primary Reason for Your Visit: Right carpal tunnel release Attending Provider: Ifeanyi Jacob Primary Care Provider: Shaheen Ocampo Discharge Orders/Prescriptions Prescriptions: New oxycodone 5 mg tablet 5 - 10 mg PO Q4H PRN (Reason: pain) 3 Days Qty: 14 0RF Continued ziprasidone HCl [Geodon] 20 mg capsule 20 mg PO QHS (DME) FreeStyle Test strip See Dose Instructions .ROUTE .MEDSUPPLY Qty: 100 11RF Dose Instruction: As directed Rx Instructions: use to check BG tid lisinopril 2.5 mg tablet 2.5 mg PO DAILY loratadine [Allergy Relief (loratadine)] 10 mg tablet 10 mg PO DAILY acetaminophen 325 mg capsule 325 mg PO ONCE PRN (Reason: pain) venlafaxine 150 mg capsule,extended release 24hr 150 mg PO DAILY metformin 500 mg tablet extended release 24 hr 500 mg PO DAILY Patient Comments: TAKE 1 TABLET BY MOUTH EVERY DAY B-complex with vitamin C Capsule 1 cap PO DAILY cholecalciferol (vitamin D3) 25 mcg (1,000 unit) capsule 25 mcg PO DAILY meloxicam 15 MG tablet 15 mg PO DAILY gabapentin 300 MG capsule 300 mg PO BIDCM bupropion HCl 300 MG tablet extended release 24 hr 300 mg PO DAILY Discontinued tramadol 50 mg tablet 50 mg PO Q8H Referrals / Follow Up: Shaheen Ocampo MD [Primary Care Provider] - Disposition Disposition (needs filled in before D/C Order can be placed): Home, Self Care
[2023-10-29 14:45] VITALS: BP 107/62; BP 138/80; PULSE 99; RESP 18; O2SAT 95
[2023-10-29 14:50] VITALS: BP 104/66; BP 138/80; PULSE 98; RESP 18; O2SAT 92
[2023-10-29 14:55] VITALS: BP 100/87; BP 138/80; PULSE 94; RESP 18; O2SAT 97
[2023-10-29 14:59] VITALS: BP 112/78; BP 138/80; PULSE 91; RESP 18; TEMP 36.7; O2SAT 96
[2023-10-29 15:45] VITALS: BP 138/80
== END 2023-10-29 15:51 | disposition home or self-care (01) ==
LOC: SDC 12:25 → AC 12:26
PROVIDERS: PCP Family Medicine; Referring Provider Orthopaedic Surgery; Visit Provider Orthopaedic Surgery
PROC: (CPT 64721; principal; 2023-10-29 14:05)
DX: G56.03 Carpal tunnel syndrome, bilateral upper limbs (principal); E11.9 Type 2 diabetes mellitus without complications; Z79.84 Long term (current) use of oral hypoglycemic drugs; I10 Essential (primary) hypertension; Z79.899 Other long term (current) drug therapy
CPT/HCPCS: 64721; J7120; J2405

== ENCOUNTER 2023-11-01 10:30 | Outpatient (RCR) | payer MEDICAID, SELFPAY ==
--- NOTE | 2023-09-02 12:29 | HP.PTEVAL_ITS ---
Patient's Visit Information Visit Information Visit Information: MARA LONGO is a 53 year old F referred to Physical Therapy by Dr. Ifeanyi Jacob DO with a diagnosis of OSTEOARHRITIS OF HIP. Date of Evaluation: 09/02/23 Physical Therapist: Harvinder Morgan PT, Cert MDT, OCS Visit Plan Frequency: 2x /Week Duration: 4 Weeks Plan: PT INTERVETIONS AROM/AAROM HIPS /KNEES ,FLEXABLITY ,STRENGTHENING QU ADS/HAMSTRINGS/HIP ,FUNCTIONAL STRENGTHENING ,GAIT/BALNCE TRAINING AND NUSTEP FOR ROM Subjective Subjective: This 53 y/o female presents to physical therapy hip osteoarthritis bilateral knees. Patient has had hip pain many years. Seen Dr Jacob. Patient had x-rays showed DJD bilateral hips. Patient is a candidate for THR . Patient sees Dr Lo for pain management. Patient uses walker gait and has w/c . Patient has w/c manually today. Pain located global described as dull ache. Aggravating factors walking/standing ,unable to squat or kneeling. Patient stairs are difficult . Alleviating factors medication and rest. Medication tramodal , gabapentin and meloxicam. Patient has had pain management . Denies paresthesia/tingling. Patient pain affects QOL and function. Patient has done water ex's on own and classes. Patient goals walk better and less pain. SOCIAL: disability Single Pain Bilateral Hip: Pain Intensity (Out of 10): 6 Pain Intensity Range: 10 Objective Objective: POSTURE : forward posture knee varum left > right ,bilateral calcaneal valgus hips/knees flexed NEURO: denies paresthesia/tingling GAIT: ambulates with fww knee varum ,calcaneal valgus ,hips/flexed ,calcaneal valgus with ER hips BALANCE: fair + with fww AROM: hip IR left - 35 degrees , right -35 degrees , hip flexion left 60 degrees ,hip flexion right 70 degrees , supine left knee flexion 35 -60 degrees , 30-65 degrees ,hip abduction 20 degrees MMT: ( peak force) quads L 21.8 ,R 20.1 , hamstrings 12.8 L , R 13.8 , hip flexion L 13.9 ,R 14.3 Balance/Special Test Scores Lower Extremity Functional Score: 16 Goals Goal 1:: Patient to be I with HEP for hips/knees Goal Time Frame: 4-6 Weeks Goal 2:: Patient to demonstrate 40 % improvement with decrease pain and improve function Goal Time Frame: 4-6 Weeks Goal 3:: Patient to improve AROM hips /knees by 5-10 degrees to improve function Goal Time Frame: 4-6 Weeks Goal 4:: Patient to peak force of quads/hams/hip by 5 # strength to improve function Goal Time Frame: 4-6 Weeks Goal 5:: Patient to improve LFES score by 5 -10 points to improve QOL and function Goal Time Frame: 4-6 Weeks Goal 6:: Patient to walk with walker with safe distance in home to maximize ADLS' 70% of the time. Goal Time Frame: 4-6 Weeks Rehabilitation Potential Physical Therapy Diagnosis: This patient has bilateral hip pain with DJD with poor ROM hips /knees ,decrease strength ,contractures ,mobility uses w/c and occasional walker thus benefit from skilled PT Rehabilitation Potential: Good Anticipated Interventions Patient/Client Instruction: Educate patient on: Condition and Plan of Care For the Purpose of:: To decrease pain, To increase ROM, To improve muscle performance and motor function, To improve ability to perform ADL's, To increase tolerance to activity/condition/position, To improve performance and independence with ADL's, To improve ability of physical actions for home/community/work/leisure, To improve health of tissue, To decrease soft tissue restriction, To increase flexibility/ROM and To prevent re-injury Therapeutic Exercise to Include: Strength training, Endurance training, Balance training, Postural training, Flexibilty training and Active ROM For the Purpose of:: To decrease pain, To increase ROM, To improve nutrient delivery to tissue, To increase oxygenation perfusion, To improve muscle performance and motor function, To increase tolerance to activity/condition/ position, To improve performance and independence with ADL's, To improve ability of physical actions for home/community/work/leisure, To improve health of tissue, To decrease soft tissue restriction, To increase flexibility/ROM and To improve endurance Text: Thank you for the opportunity to evaluate your patient. For Medicare and Medicare HMO plans, please review the plan of care and approve it. It will need to be FAXED BACK to us at [phone] for Medicare purposes. For Medicare only, by signing this I certify the plan of care. Please let me know if there are questions or concerns regarding this plan of care. Physician Signature: Date:
--- NOTE | 2023-11-01 10:50 | HP.PTDCSUM ---
Discharge Summary D/C summary: It has been my pleasure to treat MARA LONGO referred by Dr. Ifeanyi Jacob DO, with the diagnosis of OSTEOARHRITIS OF HIP for a total of 16 visit(s). Discharge Date: 11/01/23 Please see the following information for a summary of their discharge status. Subjective Subjective: Plan to continue on own . Patient had injection in hip by Dr Lo Pain Bilateral Hip: Pain Intensity (Out of 10): 4 Right Hip: Pain Intensity (Out of 10): 4 Left Hip: Pain Intensity (Out of 10): 4 Overall Improvement % Improvement: 30 Objective Objective/Function: POSTURE : forward posture knee varum left > right ,bilateral calcaneal valgus hips/knees flexed NEURO: denies paresthesia/tingling GAIT: ambulates with fww knee varum ,calcaneal valgus ,hips/flexed ,calcaneal valgus with ER hips BALANCE: fair + with fww AROM: hip IR left - 35 degrees , right -35 degrees , hip flexion left 60 degrees ,hip flexion right 70 degrees , supine left knee flexion 35 -60 degrees , 30-65 degrees ,hip abduction 20 degrees MMT: ( peak force) quads L 23.7 ,R 23.1 , hamstrings 28.8 L , R 28.2 , hip flexion L 14.9 ,R 14.6 Goals Goal 1:: Patient to be I with HEP for hips/knees Goal 2:: Patient to demonstrate 40 % improvement with decrease pain and improve function Goal Progress: Progressing Goal 3:: Patient to improve AROM hips /knees by 5-10 degrees to improve function Goal Progress: Progressing Goal 4:: Patient to peak force of quads/hams/hip by 5 # strength to improve function Goal Progress: Progressing Goal 5:: Patient to improve LFES score by 5 -10 points to improve QOL and function Goal Progress: Progressing Goal 6:: Patient to walk with walker with safe distance in home to maximize ADLS' 70% of the time. Goal Progress: Progressing Plan Plan: D/C D/C Information d/c sentence: If there are questions or concerns regarding this patient's physical therapy, please feel free to call me at [phone]. Thank you for the referral of this patient. Sincerely, Harvinder Morgan, PT, Cert MDT, OCS Balance/Gait/Functional tests Balance/Special Test Scores Lower Extremity Functional Score: 17 Improvement % Improvement: 30
== END 2023-11-01 19:00 | disposition home or self-care (01) ==
LOC: PT 10:30
PROVIDERS: PCP Family Medicine; Referring Provider Orthopaedic Surgery; Visit Provider Orthopaedic Surgery
DX: M16.0 Bilateral primary osteoarthritis of hip (principal)
CPT/HCPCS: 97110; 97162; 97530; J2405

== ENCOUNTER 2023-11-26 11:37 | Outpatient (RCR) | payer MEDICAID, SELFPAY ==
[2023-10-25 00:06] VITALS: BMI 60.3
== END 2023-12-25 23:59 ==
LOC: NS 11:37
PROVIDERS: Family Provider Family Medicine; PCP Family Medicine; Referring Provider Family Medicine; Visit Provider Family Medicine
DX: Z71.3 Dietary counseling and surveillance (principal); E66.01 Morbid (severe) obesity due to excess calories; Z68.43 Body mass index [BMI] 50.0-59.9, adult
CPT/HCPCS: 97803

== ENCOUNTER → 2023-11-28 | Outpatient (CLI) | payer MEDICAID, SELFPAY ==
[2023-11-28 12:48] LABS: Hemoglobin A1c 5.4 % (3.8-5.6)
[2023-11-28 13:06] LABS: Anion Gap 7 (5-15); BUN 21 mg/dL (7-18); BUN/Creat Ratio 21.3 RATIO (10-20); Calcium,Total 8.6 mg/dL (8.5-10.1); Chloride 107 mmol/L (98-107); Cholesterol 221 mg/dL (200); Creatinine, Serum 0.98 mg/dL (0.55-1.02); EST Glomerular Filtration Rate 63 mL/min (>60); Est Glom Filt Rate - Afr Amer 76 mL/min (>60); Glucose 211 mg/dL (74-106); High Density Lipoprotein 54 mg/dL; Potassium 4.1 mmol/L (3.5-5.1); Sodium Level 138 mmol/L (136-145); Triglycerides 169 mg/dL; Very Low Density Lipoprotein 34 mg/dL (5-40)
== END | disposition home or self-care (01) ==
LOC: MFPLAB 09:37
PROVIDERS: PCP Family Medicine; Visit Provider Family Medicine
DX: E11.9 Type 2 diabetes mellitus without complications (principal)
CPT/HCPCS: 36415; 80048; 80061; 83036

== ENCOUNTER 2023-12-17 08:56 | Day surgery (SDC) | payer MEDICAID, SELFPAY ==
[2023-12-17] MEDS: Lactated Ringers 1,000 ML 15 ML IV (09:27)
[2023-12-17 09:28] VITALS: BP 111/70; PULSE 96; RESP 18; TEMP 36.6; O2SAT 99; BMI 49.0
[2023-12-17 09:54] LABS: Bedside Glucose 123 mg/dL (74-106)
--- NOTE | 2023-12-17 10:00 | HP.PCM_ITS ---
History and Physical Date of Admission: 12/17/23 [facility] [address] [place] [address] OFFICE VISIT Date of Service: 11/21/23 MR#: [id number] Acct: [id number] Name: MARA LONGO Rep #: [id number] : 1970 Provider: Dr. Ifeanyi Jacob DO Age/Sex: 53/F Location: [email or web address] Status: Signed Intake Vital Signs 10/29/2313:07 11/20/2310:47 Height 5 ft 3 in 5 ft 3 in Intake Visit Reasons: RIGHT WRIST Chief Complaint: \ Is patient in pain?: Yes Allergies Environmental Allergies: Uncoded [pine] Allergy (Verified 11/21/23 11:32) Rashadhesive Adverse Reaction (Verified 11/21/23 11:32) Rash Medications bupropion HCl 300 mg 24 hr tablet, extended release 300 mg PO DAILY 03/20/16 [History Confirmed 11/21/23] gabapentin 300 mg capsule 300 mg PO BIDCM 03/20/16 [History Confirmed 11/21/23] meloxicam 15 mg tablet 15 mg PO DAILY 03/20/16 [History Confirmed 11/21/23] ziprasidone HCl 20 mg capsule (Geodon) 20 mg PO QHS 12/17/17 [History Confirmed 11/21/23] blood sugar diagnostic (FreeStyle Test strips) #100 ea 10/27/18 [Rx Confirmed 11/21/23] acetaminophen 325 mg capsule 325 mg PO ONCE PRN pain 01/15/23 [History Confirmed 11/21/23] lisinopril 2.5 mg tablet 2.5 mg PO DAILY 01/15/23 [History Confirmed 11/21/23] loratadine 10 mg tablet (Allergy Relief (loratadine)) 10 mg PO DAILY 01/15/23 [History Confirmed 11/21/23] venlafaxine 150 mg capsule,extended release 24 hr 150 mg PO DAILY 01/15/23 [History Confirmed 11/21/23] B-complex with vitamin C 1 cap PO DAILY 08/21/23 [History Confirmed 11/21/23] cholecalciferol (vitamin D3) 25 mcg (1,000 unit) capsule 25 mcg PO DAILY 08/21/23 [History Confirmed 11/21/23] metformin 500 mg tablet,extended release 24 hr 500 mg PO DAILY 08/21/23 [History Confirmed 11/21/23] oxycodone 5 mg tablet 5 - 10 mg (1 - 2 x 5 mg) PO Q4H PRN pain 3 days #14 tabs 10/29/23 [Rx Confirmed 11/21/23] mupirocin 2 % topical ointment 1 applic topical BID 10 days #15 grams 11/20/23 [Rx Confirmed 11/21/23] PFSH Medical History Alcohol use Anxiety Back pain Depression Diabetes Dietary restriction Difficulty swallowing Heartburn History of edema History of pain when walking HTN (hypertension) Injury of head and neck Leg cramps Loss of hearing Low iron Migraine headache Non-smoker Restless legs Uses wheelchair Surgical History H/O: hysterectomy History of History of tonsillectomy and adenoidectomy Family History Mother Heart disease Arthritis Social History household members: none Smoking Status: Never smoker second hand exposure: No alcohol intake: never substance use type: does not use HPI RIGHT WRIST Details: This documentation accurately reflects the service provided and the decisions made by me, Dr. Ifeanyi Jacob, DO 11/21/23 1128. Part of today?s visit was documented by [ ], acting as scribe. MARA LONGO is a 53 year old F here today for s/p Right open carpal tunnel release dos 10/29/23. Patient notes that she is doing well.She has no redness or drainage. She states that her incision looks much better although it is tender. Patient denies any fevers or chills. She states that she had an infection on her mouth, where she was given a cream with antibiotic. She has no numbness or tingling. Ortho Exam General General: Yes no acute distress Right Wrist/Hand Skin/Wound: No Swelling, No Ecchymosis and Yes capillary refill normal WRIST: skin healed, no drainage, full finger flexion and extension. dry, scaly skin. 80 wrist extension, 60 flexion, full supination and pronation Left Wrist/Hand Skin/Wound: Yes CDI, No Swelling, No Ecchymosis, Yes capillary refill normal and No erythema Left Wrist: Yes Durken's Test and Yes Phalen's; No Tinel's Head: Normocephalic Atraumatic Chest: symmetrical rise, non-labored breathing, no audible wheeze Abdomen: no guarding, non-rigid Supplemental Info 09/11/2023 EMG bilateral upper extremity:1. 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 This is consistent with a severe bilateral carpal tunnel syndrome. 2. No electrodiagnostic evidence is noted for cervical radiculopathy 05/09/2021 x-ray right hip: Advanced hip arthrosis with significant bone wear 05/09/2021 x-ray left hip:Advanced hip arthrosis with significant bone wear Coding Level of Care Code Off vis,est,level 3 Diagnoses Bilateral carpal tunnel syndrome G56.03 Assessment and Plan Assessment and Plan (1) Bilateral carpal tunnel syndrome: Status: Acute Plan . Her right wrist looks fine today there is no concern for infection it is healed over she has no symptoms. Her main complaint today is actually her left hand and she does wish to proceed with surgery on it. Patient should continue to improve. Explained that she will continue to have tenderness over her incision. Patient wanted to proceed with her left carpal tunnel release. She should keep the incision covered for a week after the surgery. Reviewed the pre-operative plans with the patient. Risks and benefits of the procedure were fully explained, including but not limited to infection, neurovascular injury, continued pain, arthritis, stiffness, need for further surgery, re-injury, DVT, PE, general risks of anesthesia, and loss of limb or life. The patient understands all the risks and does wish to proceed with written consent. Follow up for 2 week post op or sooner if pain, swelling, numbness or associated symptoms, or concerns develop. All questions answered. Patient in agreement of plan. 11/21/23 1145 <Electronically signed by Ifeanyi Jacob DO> Date Ifeanyi Sidhu Signature: Date (if applicable) CC: ~ I have examined the patient and the H&P has been reviewed. There are no clinical changes since date of exam.
[2023-12-17] MEDS: Cefazolin 2 GM in 0.9% Normal Saline (100mL Bag) 100 ML IV (10:14)
[2023-12-17] MEDS: Lidocaine 1% /Epi 1:100 (20ml) 20 ML Vial (10:35)
--- NOTE | 2023-12-17 10:53 | OP.PCM_ITS ---
Operative Report Date of Procedure: 12/17/23 Preoperative diagnosis; left carpal tunnel syndrome Postoperative diagnosis; same Procedure: Left open carpal tunnel release Anesthesia: Local with MAC Tourniquet time; 10 minutes 250 mm Hg Complications: None Indication for procedure; This is a 53-year-old female with long-standing sym ptoms consistent with carpal tunnel syndrome the patient did have electrodiagnostic evidence of this and has failed conservative treatment. Risks benefits and alternatives were reviewed including risks of bleeding infection nerve artery tissue damage need for further surgery and continued pain and symptoms, hypersensitivity to scar and Pillar pain. Procedure; The patient was met in the preoperative holding area the operative extremity was identified by both patient and physician and was marked the patient was met by anesthesia and brought back to the operating room and transferred to the operating table in the supine position. Anesthesia was started. A well-padded tourniquet was placed on the operative upper extremity. The patient was prepped and draped in the usual sterile fashion. A timeout was called to ensure the proper patient procedure and extremity were being contemplated. 0.5 percent lidocaine with epinephrine was injected into the incisional area. An Esmarch was used to exsanguinate the extremity. The tourniquet was inflated to 250 mmHg. A midline incision was made with a 15 blade scalpel between the thenar and hypothenar eminence. This was carried down through the skin and subcutaneous tissue. Adrian retractors were then used, a deep blade scalpel was used to make a deep incision in the palmar aponeurosis. The adrian retractors were then placed deep to this and the transverse carpal ligament was identified a perforation was made with a scalpel and a Littler scissors were used to complete the release of the transverse carpal ligament distally under direct visualization with the tips facing ulnarly until the perivascular fat was reached. Then turning our attention proximally using a tension slide technique the proximal extent of the transverse carpal ligament was released . There was noted to be hourglass configuration to the median nerve and hypertrophy of the transverse carpal ligament without other findings. The wound was thoroughly irrigated and was closed with 4-0 nylon vertical mattress stitches. Dressing was applied in the form of xeroform 4 x 4, web roll and an donna wrap. Tourniquet was let down there is no intraoperative complications patient tolerated the procedure well and was transferred to the PACU. All counts were correct.
--- NOTE | 2023-12-17 10:54 | DCINST_ITS ---
Discharge Instructions Diet Discharge Diet: No restrictions Dressing / Incision Call your doctor if you observe: Shortness of breath and Chest pain Additional Dressing/Incision Instructions:: Ice and elevate operative extremity next 72 hours. Keep dressing on clean and dry for 7 days , If dressing gets wet or dirty please notify the office and come into office sooner than appointment. after 7 days remove dressing and wash with warm soapy water to rinse over incision but do not submerge until sutures are out. after seven days begin washing 2x/day and then place a bandaid, encourage finger range of motion. Not lift more than 1/2 pound. Minimize narcotic use only as needed and directed, may use OTC NSAID and Tylenol to supplement/substitute for pain control. Follow Up Care Please Follow Up With: Ifeanyi Jacob DO When: 2 week Test Results: Test results from this visit will be discussed in further detail at your follow- up appointment, if applicable. Discharge Plan Admission Primary Reason for Your Visit: Left carpal tunnel release Attending Provider: Ifeanyi Jacob Primary Care Provider: Shaheen Ocampo Discharge Orders/Prescriptions Prescriptions: New oxycodone 5 mg tablet 2.5 - 10 mg PO Q4H PRN (Reason: pain) 3 Days Qty: 12 0RF Continued ziprasidone HCl [Geodon] 20 mg capsule 20 mg PO QHS (DME) FreeStyle Test strip See Dose Instructions .ROUTE .MEDSUPPLY Qty: 100 11RF Dose Instruction: As directed Rx Instructions: use to check BG tid lisinopril 2.5 mg tablet 2.5 mg PO DAILY loratadine [Allergy Relief (loratadine)] 10 mg tablet 10 mg PO DAILY venlafaxine 150 mg capsule,extended release 24hr 150 mg PO DAILY metformin 500 mg tablet extended release 24 hr 500 mg PO DAILY Patient Comments: TAKE 1 TABLET BY MOUTH EVERY DAY B-complex with vitamin C Capsule 1 cap PO DAILY cholecalciferol (vitamin D3) 25 mcg (1,000 unit) capsule 25 mcg PO DAILY meloxicam 15 MG tablet 15 mg PO DAILY gabapentin 300 MG capsule 300 mg PO BIDCM bupropion HCl 300 MG tablet extended release 24 hr 300 mg PO DAILY Referrals / Follow Up: Shaheen Ocampo MD [Primary Care Provider] - Disposition Disposition (needs filled in before D/C Order can be placed): Home, Self Care
[2023-12-17 10:55] VITALS: BP 111/70; BP 119/71; PULSE 113; RESP 18; TEMP 36.5; O2SAT 93
[2023-12-17 11:00] VITALS: BP 111/70; BP 121/63; PULSE 107; RESP 18; O2SAT 93
[2023-12-17 11:05] VITALS: BP 111/70; BP 122/68; PULSE 109; RESP 18; O2SAT 94
[2023-12-17 11:11] VITALS: BP 111/70; BP 127/76; PULSE 107; RESP 18; TEMP 36.4; O2SAT 93
[2023-12-17 11:34] VITALS: BP 111/70
== END 2023-12-17 12:15 | disposition home or self-care (01) ==
LOC: SDC 08:58 → AC 09:00
PROVIDERS: PCP Family Medicine; Referring Provider Orthopaedic Surgery; Visit Provider Orthopaedic Surgery
PROC: (CPT 64721; principal; 2023-12-17 10:10)
DX: G56.03 Carpal tunnel syndrome, bilateral upper limbs (principal); E11.9 Type 2 diabetes mellitus without complications; I10 Essential (primary) hypertension; Z79.84 Long term (current) use of oral hypoglycemic drugs; Z79.899 Other long term (current) drug therapy
CPT/HCPCS: 64721; 01810; 82962; J7120; J2405

== ENCOUNTER 2024-01-16 09:00 | Outpatient (RCR) | payer MEDICAID, SELFPAY ==
[2023-12-26 00:37] VITALS: BMI 60.3
== END 2024-01-23 23:59 ==
LOC: NS 09:00
PROVIDERS: Family Provider Family Medicine; PCP Family Medicine; Referring Provider Family Medicine; Visit Provider Family Medicine
DX: Z71.3 Dietary counseling and surveillance (principal); E66.01 Morbid (severe) obesity due to excess calories; Z68.43 Body mass index [BMI] 50.0-59.9, adult
CPT/HCPCS: 97803

== ENCOUNTER → 2024-01-29 | Outpatient (CLI) | payer MEDICAID, SELFPAY ==
[2024-01-29 12:55] LABS: Anion Gap 7 (5-15); BUN 29 mg/dL (7-18); BUN/Creat Ratio 31.5 RATIO (10-20); Calcium,Total 9.2 mg/dL (8.5-10.1); Chloride 107 mmol/L (98-107); Cholesterol 139 mg/dL (200); Creatinine, Serum 0.92 mg/dL (0.55-1.02); EST Glomerular Filtration Rate 68 mL/min (>60); Est Glom Filt Rate - Afr Amer 82 mL/min (>60); Glucose 126 mg/dL (74-106); High Density Lipoprotein 54 mg/dL; Potassium 4.5 mmol/L (3.5-5.1); Sodium Level 142 mmol/L (136-145); Triglycerides 97 mg/dL; Very Low Density Lipoprotein 19 mg/dL (5-40)
== END | disposition home or self-care (01) ==
LOC: MFPLAB 11:08
PROVIDERS: PCP Family Medicine; Visit Provider Family Medicine
DX: E11.9 Type 2 diabetes mellitus without complications (principal)
CPT/HCPCS: 36415; 80048; 80061

== ENCOUNTER 2024-02-03 10:52 | Outpatient (RCR) | payer MEDICAID, SELFPAY ==
[2024-01-24 00:14] VITALS: BMI 60.3
== END 2024-02-23 23:59 ==
LOC: NS 10:52
PROVIDERS: Family Provider Family Medicine; PCP Family Medicine; Referring Provider Family Medicine; Visit Provider Family Medicine
DX: Z71.3 Dietary counseling and surveillance (principal); E66.01 Morbid (severe) obesity due to excess calories; Z68.43 Body mass index [BMI] 50.0-59.9, adult
CPT/HCPCS: 97803

== ENCOUNTER 2024-02-24 09:49 | Outpatient (RCR) | payer MEDICAID, SELFPAY ==
[2024-02-24 00:16] VITALS: BMI 60.3
== END 2024-03-24 23:59 ==
LOC: NS 09:49
PROVIDERS: Family Provider Family Medicine; PCP Family Medicine; Referring Provider Family Medicine; Visit Provider Family Medicine
DX: Z71.3 Dietary counseling and surveillance (principal); E66.01 Morbid (severe) obesity due to excess calories; Z68.43 Body mass index [BMI] 50.0-59.9, adult
CPT/HCPCS: 97803

== ENCOUNTER → 2024-04-01 | Outpatient (CLI) | payer MEDICAID, SELFPAY ==
[2024-04-01 14:03] LABS: Amphetamine Urine VISTA NEGATIVE (<1000 ng/mL); Barbiturate Urine VISTA NEGATIVE (< 200 ng/mL); Benzodiazepine Urine VISTA NEGATIVE (< 200 ng/mL); Cocaine Urine VISTA NEGATIVE (< 300 ng/mL); Ecstacy Urine VISTA POSITIVE (< 500 ng/mL); Methadone Urine VISTA NEGATIVE (< 300 ng/mL); PCP Urine VISTA NEGATIVE (< 25 ng/mL); THC Urine VISTA NEGATIVE (< 50 ng/mL); Vista UDS pH Range 5
== END | disposition home or self-care (01) ==
PROVIDERS: PCP Family Medicine; Referring Provider Anesthesiology Pain Medicine; Visit Provider Anesthesiology Pain Medicine
DX: F11.20 Opioid dependence, uncomplicated (principal)
CPT/HCPCS: 80307

== ENCOUNTER 2024-04-06 09:30 | Outpatient (RCR) | payer MEDICAID, SELFPAY ==
[2024-03-25 00:39] VITALS: BMI 60.3
== END 2024-04-24 23:59 ==
LOC: NS 09:30
PROVIDERS: Family Provider Family Medicine; PCP Family Medicine; Referring Provider Family Medicine; Visit Provider Family Medicine
DX: Z71.3 Dietary counseling and surveillance (principal); E66.01 Morbid (severe) obesity due to excess calories; Z68.43 Body mass index [BMI] 50.0-59.9, adult
CPT/HCPCS: 97803

== ENCOUNTER 2024-05-18 11:00 | Outpatient (RCR) | payer MEDICAID, SELFPAY ==
[2024-04-25 02:08] VITALS: BMI 60.3
== END 2024-05-24 23:59 ==
LOC: NS 11:00
PROVIDERS: Family Provider Family Medicine; PCP Family Medicine; Referring Provider Family Medicine; Visit Provider Family Medicine
DX: Z71.3 Dietary counseling and surveillance (principal); E66.01 Morbid (severe) obesity due to excess calories; Z68.43 Body mass index [BMI] 50.0-59.9, adult
CPT/HCPCS: 97803

== ENCOUNTER 2024-06-08 09:16 | Outpatient (RCR) | payer MEDICAID, SELFPAY ==
[2024-05-25 00:42] VITALS: BMI 60.3
== END 2024-06-24 23:59 ==
LOC: NS 09:16
PROVIDERS: Family Provider Family Medicine; PCP Family Medicine; Referring Provider Family Medicine; Visit Provider Family Medicine
DX: Z71.3 Dietary counseling and surveillance (principal); E66.01 Morbid (severe) obesity due to excess calories; Z68.43 Body mass index [BMI] 50.0-59.9, adult
CPT/HCPCS: 97803

== ENCOUNTER 2024-08-06 09:23 | Outpatient (RCR) | payer MEDICAID, SELFPAY | END 2024-08-24 23:59 | LOC: NS 09:23 | PROVIDERS: PCP Family Medicine; Referring Provider Family Medicine; Visit Provider Family Medicine | DX: Z71.3 Dietary counseling and surveillance (principal); E66.01 Morbid (severe) obesity due to excess calories; Z68.43 Body mass index [BMI] 50.0-59.9, adult | CPT/HCPCS: 97803 ==

== ENCOUNTER → 2024-09-09 | Outpatient (CLI) | payer MEDICAID, SELFPAY ==
[2024-09-09 12:32] LABS: Amphetamine Urine VISTA NEGATIVE (<1000 ng/mL); Barbiturate Urine VISTA NEGATIVE (< 200 ng/mL); Benzodiazepine Urine VISTA NEGATIVE (< 200 ng/mL); Cocaine Urine VISTA NEGATIVE (< 300 ng/mL); Ecstacy Urine VISTA NEGATIVE (< 500 ng/mL); Methadone Urine VISTA NEGATIVE (< 300 ng/mL); PCP Urine VISTA NEGATIVE (< 25 ng/mL); THC Urine VISTA NEGATIVE (< 50 ng/mL); Vista UDS pH Range 7
== END | disposition home or self-care (01) ==
PROVIDERS: PCP Family Medicine; Referring Provider Anesthesiology Pain Medicine; Visit Provider Anesthesiology Pain Medicine
DX: F11.20 Opioid dependence, uncomplicated (principal)
CPT/HCPCS: 80307

== ENCOUNTER 2024-09-17 09:30 | Outpatient (RCR) | payer MEDICAID, SELFPAY | END 2024-09-24 23:59 | LOC: NS 09:30 | PROVIDERS: PCP Family Medicine; Referring Provider Family Medicine; Visit Provider Family Medicine | DX: Z71.3 Dietary counseling and surveillance (principal); E66.01 Morbid (severe) obesity due to excess calories; Z68.43 Body mass index [BMI] 50.0-59.9, adult | CPT/HCPCS: 97803 ==

== ENCOUNTER 2024-10-01 10:02 | Outpatient (RCR) | payer MEDICAID, SELFPAY | END 2024-10-24 23:59 | LOC: NS 10:02 | PROVIDERS: PCP Family Medicine; Referring Provider Family Medicine; Visit Provider Family Medicine | DX: Z71.3 Dietary counseling and surveillance (principal); E66.01 Morbid (severe) obesity due to excess calories; Z68.43 Body mass index [BMI] 50.0-59.9, adult | CPT/HCPCS: 97803 ==

== ENCOUNTER → 2024-11-13 | Outpatient (CLI) | payer MEDICAID, SELFPAY ==
[2024-11-13 14:35] LABS: ALB/GLOB Ratio 0.7 RATIO (0.9-2.4); AST(SGOT) 13 U/L (15-37); Alanine Aminotransfer ALT/SGPT 22 U/L (13-56); Albumin, Serum 3.2 g/dL (3.2-5.0); Alkaline Phosphatase 101 U/L (45-117); Anion Gap 4 (5-15); BUN 23 mg/dL (7-18); BUN/Creat Ratio 28.2 RATIO (10-20); Calcium,Total 9.3 mg/dL (8.5-10.1); Chloride 106 mmol/L (98-107); Cholesterol 135 mg/dL (200); Creatinine, Serum 0.82 mg/dL (0.55-1.02); EST Glomerular Filtration Rate 78 mL/min (>60); Est Glom Filt Rate - Afr Amer 94 mL/min (>60); Globulin 4.3 g/dL (2.2-4.2); Glucose 103 mg/dL (74-106); High Density Lipoprotein 60 mg/dL; Magnesium 2.3 mg/dL (1.6-2.6); Potassium 4.6 mmol/L (3.5-5.1); Protein, Total 7.5 g/dL (6.4-8.2); Sodium Level 138 mmol/L (136-145); Triglycerides 127 mg/dL; Very Low Density Lipoprotein 25 mg/dL (5-40)
== END | disposition home or self-care (01) ==
LOC: LAB 13:17
PROVIDERS: PCP Family Medicine; Referring Provider Family Medicine; Visit Provider Family Medicine
DX: R25.2 Cramp and spasm (principal); E11.9 Type 2 diabetes mellitus without complications
CPT/HCPCS: 36415; 80053; 80061; 83735

== ENCOUNTER 2024-12-21 09:00 | Outpatient (RCR) | payer MEDICAID, SELFPAY | END 2024-12-25 23:59 | LOC: NS 09:00 | PROVIDERS: PCP Family Medicine; Referring Provider Family Medicine; Visit Provider Family Medicine | DX: Z71.3 Dietary counseling and surveillance (principal); E66.01 Morbid (severe) obesity due to excess calories; Z68.43 Body mass index [BMI] 50.0-59.9, adult | CPT/HCPCS: 97803 ==

== ENCOUNTER → 2024-12-31 | Outpatient (CLI) | payer MEDICAID, SELFPAY ==
--- NOTE | 2024-12-31 13:33 | BI_ITS ---
PROCEDURE: SCRN MAMM (CAD)W/VIRAL BILAT REASON FOR EXAM: F, Age 54 y/o, no family history. Routine mammographic follow-up. TECHNIQUE: Bilateral screening digital breast tomosynthesis with 2D and 3D images. Computer aided detection. COMPARISON: Prior exam(s) dating back to August 07, 2023.. FINDINGS: There are scattered areas of fibroglandular density. Stable bilateral fat containing axillary lymph nodes. No suspicious masses, areas of developing architectural distortion, or suspicious calcifications. BI/SCRN MAMM (CAD)W/VIRAL BILAT IMPRESSION: BI-RADS 2: BENIGN. RECOMMEND ANNUAL MAMMOGRAPHIC SCREENING. Follow-up code: Routine Follow-up The patient will be notified of the results by letter. Reading Location: [id number]
== END | disposition home or self-care (01) ==
LOC: OPBI 13:31
PROVIDERS: PCP Family Medicine; Referring Provider Family Medicine; Visit Provider Family Medicine
DX: Z12.31 Encounter for screening mammogram for malignant neoplasm of breast (principal)
CPT/HCPCS: 77063; 77067

== ENCOUNTER 2025-01-14 11:26 | Outpatient (RCR) | payer MEDICAID, SELFPAY | END 2025-01-22 23:59 | LOC: NS 11:26 | PROVIDERS: PCP Family Medicine; Referring Provider Family Medicine; Visit Provider Family Medicine | DX: Z71.3 Dietary counseling and surveillance (principal); E66.01 Morbid (severe) obesity due to excess calories; Z68.43 Body mass index [BMI] 50.0-59.9, adult | CPT/HCPCS: 97803 ==

== ENCOUNTER 2025-02-10 13:30 | Outpatient (RCR) | payer MEDICAID, SELFPAY | END 2025-02-22 23:59 | LOC: NS 13:30 | PROVIDERS: PCP Family Medicine; Referring Provider Family Medicine; Visit Provider Family Medicine | DX: Z71.3 Dietary counseling and surveillance (principal); E66.01 Morbid (severe) obesity due to excess calories; Z68.43 Body mass index [BMI] 50.0-59.9, adult | CPT/HCPCS: 97803 ==

== ENCOUNTER 2025-03-24 09:00 | Outpatient (RCR) | payer MEDICAID, SELFPAY | END 2025-03-24 23:59 | LOC: NS 09:00 | PROVIDERS: PCP Family Medicine; Referring Provider Family Medicine; Visit Provider Family Medicine | DX: Z71.3 Dietary counseling and surveillance (principal); E66.01 Morbid (severe) obesity due to excess calories; Z68.43 Body mass index [BMI] 50.0-59.9, adult | CPT/HCPCS: 97803 ==

== ENCOUNTER 2025-04-07 11:25 | Outpatient (RCR) | payer MEDICAID, SELFPAY | END 2025-04-24 23:59 | LOC: NS 11:25 | PROVIDERS: PCP Family Medicine; Referring Provider Family Medicine; Visit Provider Family Medicine | DX: Z71.3 Dietary counseling and surveillance (principal); E66.01 Morbid (severe) obesity due to excess calories; Z68.43 Body mass index [BMI] 50.0-59.9, adult | CPT/HCPCS: 97803 ==

== ENCOUNTER 2025-05-12 08:30 | Outpatient (RCR) | payer MEDICAID, SELFPAY | END 2025-05-24 23:59 | LOC: NS 08:30 | PROVIDERS: PCP Family Medicine; Referring Provider Family Medicine; Visit Provider Family Medicine | DX: Z71.3 Dietary counseling and surveillance (principal); E66.01 Morbid (severe) obesity due to excess calories; Z68.43 Body mass index [BMI] 50.0-59.9, adult | CPT/HCPCS: 97803 ==

== ENCOUNTER 2025-06-10 10:00 | Outpatient (RCR) | payer MEDICAID, SELFPAY | END 2025-06-24 23:59 | LOC: NS 10:00 | PROVIDERS: PCP Family Medicine; Referring Provider Family Medicine; Visit Provider Family Medicine | DX: Z71.3 Dietary counseling and surveillance (principal); E66.01 Morbid (severe) obesity due to excess calories; Z68.43 Body mass index [BMI] 50.0-59.9, adult | CPT/HCPCS: 97803 ==

== ENCOUNTER 2025-07-21 09:36 | Outpatient (RCR) | payer MEDICAID, SELFPAY | END 2025-07-25 23:59 | LOC: NS 09:36 | PROVIDERS: PCP Family Medicine; Referring Provider Family Medicine; Visit Provider Family Medicine | DX: Z71.3 Dietary counseling and surveillance (principal); I10 Essential (primary) hypertension; E11.9 Type 2 diabetes mellitus without complications | CPT/HCPCS: 97803 ==

== ENCOUNTER 2025-08-18 08:30 | Outpatient (RCR) | payer MEDICAID, SELFPAY | END 2025-08-24 23:59 | LOC: NS 08:30 | PROVIDERS: PCP Family Medicine; Referring Provider Family Medicine; Visit Provider Family Medicine | DX: Z71.3 Dietary counseling and surveillance (principal); E11.9 Type 2 diabetes mellitus without complications; I10 Essential (primary) hypertension | CPT/HCPCS: 97803 ==

== ENCOUNTER → 2025-08-25 | Outpatient (CLI) | payer MEDICAID, SELFPAY ==
[2025-08-25 16:11] LABS: AST(SGOT) 49 U/L (<=31); Alanine Aminotransfer ALT/SGPT 29 U/L (<=34); Albumin, Serum 4.0 g/dL (3.5-5.0); Alkaline Phosphatase 94 U/L (35-104); Anion Gap 12 (5-15); BUN 19 mg/dL (4-19); BUN/Creat Ratio 29.8 RATIO (10-20); Calcium,Total 9.7 mg/dL (7.6-11.0); Carbon Dioxide 24.5 mmol/L (21.0-32.0); Chloride 105 mmol/L (98-108); Cholesterol 114 mg/dL (<=200); Globulin 3.3 g/dL (2.2-4.2); Glucose 120 mg/dL (70-99); Low Density Lipoprotein Calc. 48 mg/dL; Potassium 4.4 mmol/L (3.3-5.1); Triglycerides 118 mg/dL; Uric Acid 7.0 mg/dL (2.6-6.0); Very Low Density Lipoprotein 24 mg/dL (5-40); cholesterol:hdl ratio screen 2.66
== END | disposition home or self-care (01) ==
LOC: MFPLAB 12:00
PROVIDERS: PCP Family Medicine; Visit Provider Family Medicine
DX: E11.9 Type 2 diabetes mellitus without complications (principal); M79.676 Pain in unspecified toe(s)
CPT/HCPCS: 36415; 80053; 80061; 84550

== ENCOUNTER 2025-09-22 09:30 | Outpatient (RCR) | payer MEDICAID, SELFPAY | END 2025-09-24 23:59 | LOC: NS 09:30 | PROVIDERS: PCP Family Medicine; Referring Provider Family Medicine; Visit Provider Family Medicine | DX: Z71.3 Dietary counseling and surveillance (principal); E11.9 Type 2 diabetes mellitus without complications; I10 Essential (primary) hypertension | CPT/HCPCS: 97803 ==

== ENCOUNTER 2025-10-19 11:30 | Outpatient (RCR) | payer MEDICAID, SELFPAY | END 2025-10-24 23:59 | LOC: NS 11:30 | PROVIDERS: PCP Family Medicine; Referring Provider Family Medicine; Visit Provider Family Medicine | DX: Z71.3 Dietary counseling and surveillance (principal); I10 Essential (primary) hypertension; E11.9 Type 2 diabetes mellitus without complications | CPT/HCPCS: 97803 ==

== ENCOUNTER 2025-11-02 09:48 | Outpatient (RCR) | payer MEDICAID, SELFPAY | END 2025-11-24 23:59 | LOC: NS 09:48 | PROVIDERS: PCP Family Medicine; Referring Provider Family Medicine; Visit Provider Family Medicine | DX: Z71.3 Dietary counseling and surveillance (principal); I10 Essential (primary) hypertension; E11.9 Type 2 diabetes mellitus without complications | CPT/HCPCS: 97803 ==

== ENCOUNTER 2025-11-03 07:35 | Day surgery (SDC) | payer MEDICAID, SELFPAY ==
--- NOTE | 2025-11-01 14:38 | PAT.ANESEVAL ---
Pre-Assessment Diagnosis/Proposed Procedure Planned Operative Procedure(s): CSCOPE Anesthesia History Anesthesia History - outgoing inspector: Anesthesia History - outgoing inspector Hx Hospitalization No 11/01/25 14:32 Any Problems With Anesthesia No 11/01/25 14:32 Cholinesterase deficiency No 11/01/25 14:32 You/Your Family Experience No 11/01/25 14:32 fever (hyperthermia) with Relationship Recent Exposure to Contagious No 12/17/23 09:28 Disease Does patient have nerve No 11/01/25 14:32 stimulator Patient instructed to have device shut off --Does patient have Pacemaker or ICD? When Was Last Pacemaker Check QUESTION #4 FULL TEXT: You/Your Family Experience fever (hyperthermia) with Anesthesia Last Oral Intake Last Oral intake: Last Oral Intake NPO since Meds taken in AM with sips of water? Meds patient instructed to take am of surgery PONV PONV - outgoing inspector: PONV - outgoing inspector Female Yes 11/01/25 14:32 HX of Motion Sickness No 11/01/25 14:32 HX of N/V After Surgery No 11/01/25 14:32 Non-Smoker Yes 11/01/25 14:32 Duration of Surgery greater No 11/01/25 14:32 than 60 minutes Number of Risk Factors 2 11/01/25 14:32 PONV Score Moderate Risk 11/01/25 14:32 Height & Weight Height & Weight: Anesthesia: Height & Weight Height 5 ft 1 in 09/22/25 09:00 Respiratory Assessment Respiratory Assessment - outgoing inspector: Respiratory Tract Infection Hx - outgoing inspector Hx Respiratory Tract Infection No 11/01/25 14:32 STOP Sleep Apnea STOP Sleep Apnea - outgoing inspector: STOP Sleep Apnea - outgoing inspector Hx Hypertension No 11/01/25 14:32 Hx Sleep Apnea Yes 11/01/25 14:32 CPAP No 11/01/25 14:32 BIPAP Yes 11/01/25 14:32 Do you snore loudly (louder than talking or can be heard Do you often feel tired/ fatigued/ sleepy during daytime? Has anyone observed you stop breathing during sleep? STOP Results Positive 11/01/25 14:32 QUESTION #5 FULL TEXT : Do you snore loudly (louder than talking or can be heard through closed doors)? Tobacco Use History Tobacco Use History - outgoing inspector: Tobacco Use History - outgoing inspector Tobacco Use Smoking Status Never smoker 11/01/25 14:32 Hx Tobacco Use No 11/01/25 14:32 Years Smoking Packs Smoked per Day Smoking Cessation Date was within the last 15 years Hx Smoking Cessation Date Hx Smoking Cessation Counseling Hematologic Medial History Hematologic Hx - outgoing inspector: Hematologic Medical Hx - hat checker Hx of Blood Transfusion No 11/01/25 14:32 Hx of Transfusion in last 3 No 11/01/25 14:32 Months Date of Last Transfusion (if within last 3 months) Ever experience any problems No 11/01/25 14:32 with transfusion(s)? Specify any problems Hx of Preganancy in last 3 N/A 11/01/25 14:32 Months Nurse Filling Out Transfusion NBUCHER 11/01/25 14:32 & Questions: Date: 11/01/25 11/01/25 14:32 Time: 14:33 11/01/25 14:32 Patient unable to answer at this time (ie. confused, unrespo /Reproduction History /Reproductive History - outgoing inspector: /Reproductive Hx- outgoing inspector Hx Now No 11/01/25 14:32 Gestational Age (in weeks): EDC: Hx Hx Para Hx Section SAB No 11/01/25 14:32 Does the father of the baby or his family experience fever w Father of the baby Malignant Hypertension history comment [facility] Medical History (Updated 11/01/25 @ 14:37 by Joan Elena) Sleep apnea BiPAP (biphasic positive airway pressure) dependence Loss of hearing Depression Anxiety Alcohol use Diabetes Uses wheelchair Low iron Restless legs Back pain Migraine headache Injury of head and neck Dietary restriction Difficulty swallowing Heartburn Non-smoker Leg cramps History of pain when walking History of edema HTN (hypertension) Home Medications ?Medication ?Instructions ?Recorded ?Last Taken ?Type bupropion HCl 300 mg 24 hr tablet, 300 mg PO DAILY 03/20/16 12/17/23 History extended release gabapentin 300 mg capsule 300 mg PO BIDCM 03/20/16 12/17/23 History meloxicam 15 mg tablet 15 mg PO DAILY 03/20/16 12/10/23 History blood sugar diagnostic (ThomasStyle #100 ea 10/27/18 Unknown Rx Test strips) lisinopril 2.5 mg tablet 2.5 mg PO DAILY 01/15/23 12/17/23 History loratadine 10 mg tablet (Allergy 10 mg PO DAILY 01/15/23 12/17/23 History Relief (loratadine)) venlafaxine 150 mg 150 mg PO DAILY 01/15/23 12/16/23 History capsule,extended release 24 hr B-complex with vitamin C 1 cap PO DAILY 08/21/23 12/16/23 History cholecalciferol (vitamin D3) 25 25 mcg PO DAILY 08/21/23 12/16/23 History mcg (1,000 unit) capsule tramadol 50 mg tablet 50 mg PO DAILY 12/30/23 Unknown History rosuvastatin 5 mg tablet 5 mg PO QDAY 12/28/24 Unknown History Allergy/AdvReac Type Severity Reaction Status Date / Time Environmental Allergies: Allergy Rash Verified 11/01/25 14:29 Uncoded (pine) adhesive AdvReac Rash Verified 11/01/25 14:29 Family History Mother Heart disease Arthritis Surgical History History of carpal tunnel surgery of left wrist History of carpal tunnel surgery of right wrist History of tonsillectomy and adenoidectomy History of H/O: hysterectomy Social History household members: none Smoking Status: Never smoker second hand exposure: No alcohol intake: never substance use type: does not use Audit: Pertinent Findings Pertinent Findings EKG Perinent findings: 08/04/2016. Normal sinus rhythm 93 bpm. Right bundle branch block. Recommendation Anesthesia Recommendation Anesthesia recommendation: OPTIMIZED for anesthesia
--- NOTE | 2025-11-02 14:03 | H&P.OPEN ---
HPI - General General Date of Service: 11/03/25 HPI Narrative MARA LONGO, is a 55 F who presents for screening colonoscopy. Patient never had previous colonoscopy. Patient's aunt did have polyps denies any family history of colon cancer. Patient does have issues with constipation?goes about twice a week?denies any blood. Patient is unsure of the fiber she gets but she is not sure she drinks enough water. Will have some abdominal pain with the constipation. Patient denies chronic nausea/vomiting/reflux. Patient states she may have had some recent food poisoning from some bad apple cider. [facility] Medical History (Updated 11/02/25 @ 14:[address] Kesha Santana MD) Sleep apnea BiPAP (biphasic positive airway pressure) dependence Loss of hearing Depression Anxiety Alcohol use Diabetes Uses wheelchair Low iron Restless legs Back pain Migraine headache Injury of head and neck Dietary restriction Difficulty swallowing Heartburn Non-smoker Leg cramps History of pain when walking History of edema HTN (hypertension) Home Medications ?Medication ?Instructions ?Recorded ?Last Taken ?Type bupropion HCl 300 mg 24 hr tablet, 300 mg PO DAILY 03/20/16 12/17/23 History extended release gabapentin 300 mg capsule 300 mg PO BIDCM 03/20/16 12/17/23 History meloxicam 15 mg tablet 15 mg PO DAILY 03/20/16 12/10/23 History blood sugar diagnostic (FreeStyle #100 ea 10/27/18 Unknown Rx Test strips) lisinopril 2.5 mg tablet 2.5 mg PO DAILY 01/15/23 12/17/23 History loratadine 10 mg tablet (Allergy 10 mg PO DAILY 01/15/23 12/17/23 History Relief (loratadine)) venlafaxine 150 mg 150 mg PO DAILY 01/15/23 12/16/23 History capsule,extended release 24 hr B-complex with vitamin C 1 cap PO DAILY 08/21/23 12/16/23 History cholecalciferol (vitamin D3) 25 25 mcg PO DAILY 08/21/23 12/16/23 History mcg (1,000 unit) capsule tramadol 50 mg tablet 50 mg PO DAILY 12/30/23 Unknown History rosuvastatin 5 mg tablet 5 mg PO QDAY 12/28/24 Unknown History Allergy/AdvReac Type Severity Reaction Status Date / Time Environmental Allergies: Allergy Rash Verified 11/01/25 14:29 Uncoded (pine) adhesive AdvReac Rash Verified 11/01/25 14:29 Family History Mother Heart disease Arthritis Surgical History History of carpal tunnel surgery of left wrist History of carpal tunnel surgery of right wrist History of tonsillectomy and adenoidectomy History of H/O: hysterectomy Social History household members: none Smoking Status: Never smoker second hand exposure: No alcohol intake: never substance use type: does not use Past Medical/Surgical History Planned Operation Planned Operative Procedure(s): CSCOPE Previous Hospitalizations/Surgeries HX Hospitalizations: No Any Problems With Anesthesia: No You/Your Family Experience Fever (Hyperthermia) With Anes: No Cholinesterase deficiency: No Cardiovascular Hx Chest Pain within Last 2 months: No Hx of Irregular Heartbeat and/or Afib: No Hx Heart Attack: No Hx Congestive Heart Failure: No Hx Hypertension: No Hx Internal Defibrillator: No Hx Pacemaker: No Hx Cardiac Catheterization: No Respiratory Hx Chronic Obstructive Pulmonary Disease (COPD): No Hx Asthma: No Hx Emphysema: No Hx Sleep Apnea: Yes CPAP: No BIPAP: Yes Hx Respiratory Tract Infection/Cold (presently): No Result (for STOP score): Positive Smoking Status: Never smoker Gastrointestinal Hx Ulcer: No Special diet followed at home: No Neurological Hx Seizures: No Hx Transient Ischemic Attacks (TIA): No Hx Head/Neck Injury: No Hx Headaches: Yes Hx Back Injury/Pain: Yes Does patient have nerve stimulator: No Blood Disorder Hx High Cholesterol: No Hx Hepatitis: No Hx Cirrhosis: No Reproduction : No Genitourinary Hx Renal Disease: No Musculoskeletal Hx Arthritis: Yes Endocrine Hx Diabetes: No (states borderline) Psycho/Social Hx Substance Use: No Hx Alcohol Use: No Hx Anxiety: Yes Hx Depression: Yes Hx Dementia: No Miscellaneous Hx Cancer: No Recent Exposure to Contagious Disease: No Allergies Environmental Allergies: Uncoded (pine) Allergy (Verified 11/01/25 14:29) Rash adhesive Adverse Reaction (Verified 11/01/25 14:29) Rash Maternal: Family History Mother Heart disease Arthritis No pertinent history Paternal: Family History Mother Heart disease Arthritis No pertinent history Discharge Is Pt Admitted From a [facility], or a [facility]: No After D/C, Where Do you Plan to Go: Return Home Physical Exam Const alert, oriented x3 and no apparent distress HEENT normocephalic and head/scalp atraumatic Resp normal respiratory effort Cardio regular rate GI soft to palpation and non-tender; Negative for non-distended Palpation: Negative for guarding Extremity no clubbing, cyanosis or edema Skin no rashes or lesions noted Neuro CN's II-XII intact bilaterally Psych mental status grossly normal Assessment & Plan Assessment/Plan (1) Screening for colon cancer: Surgery Risks - Colonoscopy I discussed with the patient the risks of the procedure: Yes Risks Include but are not Limited To: Risks include but are not limited to: Bleeding, perforation requiring further surgery, inability to complete colonoscopy requiring barium enema.
[2025-11-03] VITALS (7 sets, daily range): BP systolic 113–128; BP diastolic 76–82; PULSE 89–99; RESP 16–18; TEMP 36.1–36.4; O2SAT 96–100; BMI 52.0
--- OUTSIDE RECORDS SUMMARY | 2025-11-03 07:44 | XMS RPT_ITS | CCD ---
Author Organization [facility] Care Team Providers Care Certified Home Health Aide Name Role Phone Alysha BACK END WEB DEVELOPER, Ronda Hermann Unavailable Luis TRAILER MECHANIC, Carole L Unavailable Unavailable Luis TRAILER MECHANIC, Carole L Unavailable Unavailable Ruggeri TRAILER MECHANIC, Rafaela F Unavailable Unavailabl e Ruggeri TRAILER MECHANIC, Rafaela F Unavailable Unavailabl e Luis TRAILER MECHANIC, Carole L Unavailable Unavailable Luis TRAILER MECHANIC, Carole L Unavailable Unavailable Dr. Shaheen Ocampo Primary Care Provider [phone] Shaheen Ocampo Referring Provider NATHANIEL Patton Attending Provider Dr. Shaheen Ocampo Primary Care Provider Dr. Shaheen Ocampo Referring Provider NATHANIEL Patton Attending Provider [phone] Shaheen Ocampo Primary Care Provider Dr. Shaheen Ocampo Referring Provider Dr. Ifeanyi Jacob Attending Provider Dr. Ronal Graves Attending Provider Dr. Ifeanyi Jacob Referring Provider Dr. Ifeanyi Jacob Other Provider Dr. Marley Gimenez Attending Provider [phone] Dr. Shaheen Ocampo Primary Care Provider Dr. Shaheen Ocampo Referring Provider Dr. Ifeanyi Jacob Attending Provider Dr. Star Ronal Attending Provider Nidia, Dr. Suggs Referring Provider [phone] Nidia, Dr. Suggs Other Provider [phone] Marley Gimenez Attending Provider NATHANIEL Patton Attending Provider Terrence, Dr. Jamison Primary Care Provider Terrence, Dr. Jamison Referring Provider Nidia, Dr. Suggs Attending Provider Terrence, Dr. Jamison Primary Care Provider Nidia, Dr. Suggs Referring Provider [phone] Nidia, Dr. Suggs Other Provider Ocampo, Dr. Jamison Primary Care Provider Terrence, Dr. Jamison Referring Provider Nidia, Dr. Suggs Attending Provider [phone] Borcitlali, Dr. Suggs Referring Provider [phone] Nidia, Dr. Suggs Other Provider NATHANIEL Patton Attending Provider Terrence, Dr. Jamison Primary Care Provider Nidia, Dr. Suggs Attending Provider [phone] Terrence, Dr. Jamison Referring Provider Terrence, Dr. Jamison Primary Care Provider Nidia, Dr. Suggs Attending Provider [phone] Nidia, Dr. Suggs Referring Provider Nidia, Dr. Suggs Other Provider Terrence, Dr. Jamison Referring Provider Terrence ALBERTO, Dr. Jamison Primary Care Provider Terrence ALBERTO, Dr. Jamison Attending Provider Terrence ALBERTO, Dr. Jamison Referring Provider Nidia ALCANTARA, Dr. Suggs Attending Provider Star ALBERTO, Dr. Villeda Attending Provider Terrence ALBERTO, Dr. Jamison Primary Care Provider Terrence ALBERTO, Dr. Jamison Referring Provider Terrence ALBERTO, Dr. Jamison Attending Provider Terrence ALBERTO, Dr. Jamison Primary Care Provider Terrence ALBERTO, Dr. Jamison Attending Provider Terrence ALBERTO, Dr. Jamison Referring Provider Terrence ALBERTO, Dr. Jamison Primary Care Provider Terrence ALBERTO, Dr. Jamison Attending Provider Terrence ALBERTO, Dr. Jamison Referring Provider Terrence ALBERTO, Dr. Jamison Primary Care Provider Terrence ALBERTO, Dr. Jamison Attending Provider Terrence ALBERTO, Dr. Jamison Referring Provider Terrence ALBERTO, Dr. Jamison Primary Care Physician Terrence ALBERTO, Dr. Jamison Attending Physician Terrence ALBERTO, Dr. Jamison Referring Provider Terrence ALBERTO, Dr. Jamison Primary Care Physician Terrence ALBERTO, Dr. Jamison Attending Physician Terrence ALBERTO, Dr. Jamison Referring Provider Kesha Santana Attending Unavailable Ocampo, Shaheen Primary Care Unavailable Ocampo, Shaheen Referring Unavailable Ocampo, Shaheen Attending Unavailable Ocampo, Shaheen Primary Care Unavailable Ocampo, Shaheen Primary Care Unavailable Ronal Graves Attending Unavailable Ocampo, Shaheen Referring Unavailable Ocampo, Shaheen Primary Care Unavailable Borruso, Ifeanyi Attending Unavailable Ocampo, Shaheen Attending Unavailable Ocampo, Shaheen Primary Care Unavailable Ocampo, Shaheen Attending Unavailable Ocampo, Shaheen Referring Unavailable Ocampo, Shaheen Primary Care Unavailable Ocampo, Shaheen Attending Unavailable Ocampo, Shaheen Referring Unavailable Ocampo, Shaheen Primary Care Unavailable Ocampo, Shaheen Attending Unavailable Ocampo, Shaheen Referring Unavailable Ocampo, Shaheen Primary Care Unavailable Ocampo, Shaheen Attending Unavailable Ocampo, Shaheen Primary Care Unavailable Ocampo, Shaheen Referring Unavailable Ocampo, Shaheen Referring Unavailable Ocampo, Shaheen Attending Unavailable Ocampo, Shaheen Primary Care Unavailable Ocampo, Shaheen Referring Unavailable Ocampo, Shaheen Attending Unavailable Ocampo, Shaheen Primary Care Unavailable Ocampo, Shaheen Referring Unavailable Ocampo, Shaheen Attending Unavailable Ocampo, Shaheen Primary Care Unavailable Ocampo, Shaheen Referring Unavailable Ocampo, Shaheen Attending Unavailable Ocampo, Shaheen Primary Care Unavailable Ocampo, Shaheen Referring Unavailable Ocampo, Shaheen Primary Care Unavailable Ocampo, Shaheen Attending Unavailable Ocampo, Shaheen Attending Unavailable Ocampo, Shaheen Referring Unavailable Ocampo, Shaheen Primary Care Unavailable Ocampo, Shaheen Attending Unavailable Ocampo, Shaheen Primary Care Unavailable Ocampo, Shaheen Attending Unavailable Ocampo, Shaheen Referring Unavailable Ocampo, Shaheen Primary Care Unavailable Ocampo, Shaheen Attending Unavailable Ocampo, Shaheen Referring Unavailable Ocampo, Shaheen Primary Care Unavailable Allergies Allergy Classification Reported Allergen(s) Allergy Type Date of Onset Reaction(s) Facility (8 sources) PINE SAP drug allergy 07-06-20 [facility] Work Phone: (20 sources) Adhesive agent; Translations: [adhesive] Propensity to adverse reactions 01-07-20 [facility] (6 sources) pine Propensity to adverse reactions 01-07-20 [facility] Work Phone: (20 sources) Environmental Allergies: Uncoded; Translations: [Environmental Allergies: Uncoded] Allergy to substance 09-12-20 [facility] Medications Current Medications Medication Drug Class(es) Dates Sig (Normalized) Sig (Original) acetaminophen 325 mg oral capsule (15 sources) Start: 01-15-2023 take 325 mg by mouth once Acetaminophen Active 325 MG PO ONCE January 15, 2023 12:00am B-Complex With Vitamin C (11 sources) Start: 08-21-2023 take 1 capsule by mouth once daily B-Complex With Vitamin C Active 1 CAP PO DAILY August 20, 2023 11:00pm Start: 08-21-2023 take 1 capsule by mo uth once daily B-Complex With Vitamin C Active 1 CAP PO DAILY August 21, 2023 12:00am B-Complex With Vitamin C cap sandra (7 sources) Start: 08-21-2023 Start: 08-21-2023 B-Complex With Vitamin C capsule Active 1 NMA PO DAILY August 21, 2023 12:00am 24 hr buPROPion hydrochlorid e 300 mg extended release oral tablet (20 sources) Aminoketone Start: 07-06-2013 take 1 tablet by tyrese th once daily Start: 07-06-2013 take 1 tablet by tyrese th once daily WELLBUTRIN XL 300 MG [id number] One tablet by mouth daily BUPROPION HCL [id number] Wilma Capps cholecalciferol 0.025 mg oral capsule (18 sources) Vitamin D Start: 08-21-2023 take 1 capsule by mouth once daily gabapentin 300 mg oral capsule (20 sources) Anti-epileptic Agent Start: 03-20-2016 take 1 capsule by mouth twice daily at mealtime Start: 07-06-2013 End: 10-21-2017 take 1 tablet by mouth once daily NEURONTIN TABS One tablet by mouth daily GABAPENTIN TABS [id number] Carole Smith LPN Start: 07-06-2013 take 1 tablet by tyrese th once daily NEURONTIN TABS One tablet by mouth daily GABAPENTIN TABS [id number] Wilma Capps Start: 07-06-2013 take 1 tablet by tyrese th once daily NEURONTIN TABS One tablet by mouth daily GABAPENTIN TABS [id number] Wilma Capps lisinopril 2.5 mg oral tablet (20 sources) Angiotensin Converting Enzyme Inhibitor Start: 01-15-2023 take 1 tablet by mouth once daily loratadine 10 mg oral tablet (20 sources) Start: 01-15-2023 take 1 tablet by mouth once daily meloxicam 15 mg oral tablet (20 sources) Nonsteroidal Anti-inflammatory Drug Start: 03-20-2016 take 1 tablet by mouth once daily 24 hr metFORMIN hydrochloride 500 mg extended release oral tablet (18 sources) Biguanide Start: 08-21-2023 take 1 tablet by mouth once daily Start: 08-21-2023 Metformin Acti ve MG PO August 21, 2023 12:00am rosuvastatin calcium 5 mg oral tablet (14 sources) HMG-CoA Reductase Inhibitor Start: 12-28-2024 take 1 tablet by mouth once daily Start: 12-28-2024 End: 12-28-2024 take 1 tablet by mouth once daily Rosuvastatin 20 mg tablet Discontinued 20 mg PO daily December 28, 2024 1:00am December 28, 2024 9:45am traMADol hydrochloride 50 mg oral tablet (20 sources) Opioid Agonist Start: 12-30-2023 Start: 12-30-2023 Tramadol Activ e MG PO December 30, 2023 1:00am Start: 08-13-2018 End: 10-29-2023 take 1 tablet by mouth every eight hours Tramadol 50 mg tablet Discontinued 50 mg PO Q8H August 13, 2018 1:38pm October 29, 2023 3:41pm Start: 08-13-2018 take 50 mg by mouth three times daily Tramadol Active 50 MG PO THREE TIMES A DAY August 13, 2018 1:38pm Start: 12-17-2017 End: 08-13-2018 take 1 tablet by mouth twice daily Tramadol 50 mg tablet Discontinued 50 mg PO .twice a day December 17, 2017 1:00am August 13, 2018 1:38pm TRAMADOL HCL 50 MG TABS bid TRAMADOL HCL [id number] Ronda Encarnacion NP 24 hr venlafaxine 150 mg extended release oral capsule (20 sources) Serotonin and Norepinephrine Reuptake Inhibitor Start: 03-20-2016 End: 01-15-2023 take 1 capsule by mouth once daily take 1 tablet by mouth once winsome y EFFEXOR XR 150 MG [id number] One tablet by mouth daily VENLAFAXINE HCL [id number] Ronda Encarnacion NP Completed/Discontinued Medications Medication Drug Class(es) Dates Sig (Normalized) Sig (Original) acetaminophen 300 mg / HYDROcodone bitartrate 5 mg oral tablet (20 sources) Opioid Agonist Start: 05-03-2015 End: 05-06-2015 Hydrocodone-Acetami nophen (Vicodin 5-300 Mg Tablet) 1 EACH tablet Discontinued 1 {tbl} PO EVERY 6 HOURS NEEDED as needed for Pain May 03, 2015 12:00am May 06, 2015 1:21pm Start: 07-06-2013 End: 10-21-2017 take 1 tablet by mouth twice daily HYDROCODONE-ACETAMINOPHEN 10-325 MG TABS One tablet by mouth twice daily HYDROCODONE-ACETAMINOPHEN [id number] Wilma Capps amitriptyline hydrochloride 100 mg oral tablet (20 sources) Tricyclic Antidepressant Start: 07-06-2013 End: 10-21-2017 take 1 tablet by mouth once daily AMITRIPTYLINE HCL 100 MG TABS One tablet by mouth daily AMITRIPTYLINE HCL [id number] Wilma Capps diazePAM 2 mg oral tablet (20 sources) Benzodiazepine Start: 08-04-2016 End: 12-17-2017 take 1 tablet by mouth three times daily as needed Diazepam 2 MG tablet Discontinued 2 mg PO 3 TIMES DAILY NEEDED as needed for Vertigo 10 0 August 04, 2016 3:31pm December 17, 2017 9:47am GLUCOSE BLOOD (1 source) Start: 07-26-2017 FREESTYLE TEST STRP test BG 3 times daily GLUCOSE BLOOD [id number] Ronda Encarnacion NP GLUCOSE BLOOD (3 sources) Start: 07-26-2017 FREESTYLE TEST STRP test BG 3 times daily GLUCOSE BLOOD [id number] Ronda Encarnacion NP hydroCHLOROthiazide 12.5 mg oral capsule (20 sources) Thiazide Diuretic Start: 12-25-2017 End: 01-15-2023 take 1 capsule by mouth once daily Hydrochlorothiazide 12.5 mg capsule Discontinued 12.5 mg PO daily December 25, 2017 1:00am January 15, 2023 4:11pm Start: 05-03-2015 End: 05-06-2015 take 1 capsule by mouth once daily Hydrochlorothiazide 12.5 MG capsule Discontinued 12.5 mg PO DAILY May 03, 2015 12:00am May 06, 2015 1:21pm Start: 07-06-2013 take 1 tablet by tyrese once daily HYDROCHLOROTHIAZIDE TABS One tablet by mouth daily HYDROCHLOROTHIAZIDE TABS [id number] Wilma Capps methylphenidate hydrochloride 10 mg oral tablet (20 sources) Central Nervous System Stimulant Start: 03-20-2016 End: 01-15-2023 take 1 tablet by mouth once daily Methylphenidate Hcl 10 MG tablet Discontinued 10 mg PO DAILY March 20, 2016 12:00am January 15, 2023 4:11pm take 1 tablet by mouth once winsome y APTENSIO XR 10 MG [id number] One tablet by mouth daily METHYLPHENIDATE HCL [id number] Ronda Encarnacion NP take 1 tablet by mouth once winsome y APTENSIO XR 10 MG [id number] One tablet by mouth daily METHYLPHENIDATE HCL [id number] Ronda Encarnacion NP mupirocin 0.02 mg/mg topical ointment (13 sources) RNA Synthetase Inhibitor Antibacterial Start: 11-20-2023 End: 11-30-2023 Mupirocin 2 % ointment Discontinued 1 NMA TOPICAL TWICE A DAY 15 10 November 20, 2023 1:00am November 29, 2023 1:00am November 30, 2023 1:26am Start: 11-20-2023 End: 11-30-2023 Mupirocin 2 % ointment Disco ntinued 1 NMA TOPICAL TWICE A DAY 15 10 November 20, 2023 1:00am November 29, 2023 1:00am November 30, 2023 1:26am Start: 11-20-2023 End: 11-30-2023 Mupirocin 2 % ointment Disco ntinued 1 NMA TOPICAL TWICE A DAY 15 November 20, 2023 1:00am November 29, 2023 1:00am November 30, 2023 1:26am Start: 11-20-2023 End: 11-30-2023 Mupirocin Discontinued 1 NIKIA LIC TOPICAL TWICE A DAY 15 November 20, 2023 1:00am November 30, 2023 1:26am Start: 11-20-2023 End: 11-30-2023 Mupirocin Discontinued 1 NIKIA LIC TOPICAL TWICE A DAY 15 November 20, 2023 12:00am November 30, 2023 12:26am naproxen 500 mg oral tablet (20 sources) Nonsteroidal Anti-inflammatory Drug Start: 08-13-2018 End: 01-15-2023 take 1 tablet by mouth three times daily Naproxen (Naprosyn) 500 mg tablet Discontinued 500 mg PO THREE TIMES A DAY August 13, 2018 12:00am January 15, 2023 4:11pm Start: 07-06-2013 End: 10-21-2017 take 1 tablet by mouth twice daily as needed for pain Naproxen 500 MG tablet Discontinued 500 mg PO TWICE DAILY NEEDED as needed for Pain May 03, 2015 12:00am May 06, 2015 1:21pm omeprazole 20 mg delayed release oral capsule (20 sources) Proton Pump Inhibitor Start: 12-17-2017 End: 01-15-2023 take 2 capsules by mouth twice daily Omeprazole 20 MG capsule Discontinued 40 mg PO TWICE A DAY December 17, 2017 9:46am January 15, 2023 4:11pm Start: 12-17-2017 End: 01-15-2023 take 40 mg by mouth twice daily Omeprazole Discontinue d 40 MG PO TWICE A DAY December 17, 2017 9:46am January 15, 2023 4:11pm Start: 03-20-2016 End: 12-17-2017 take 1 capsule by mouth twice daily Omeprazole 20 MG capsule Discontinued 20 mg PO TWICE A DAY March 20, 2016 12:00am December 17, 2017 9:47am Start: 05-03-2015 End: 05-06-2015 take 1 capsule by mouth once daily Omeprazole 10 MG capsule Discontinued 10 mg PO DAILY May 03, 2015 12:00am May 06, 2015 1:20pm ondansetron 4 mg disintegrating oral tablet (20 sources) Serotonin-3 Receptor Antagonist Start: 08-04-2016 End: 12-17-2017 take 1 tablet by mouth every eight hours as needed for nausea Ondansetron 4 MG tablet Discontinued 4 mg PO EVERY 8 HOURS NEEDED as needed for Nausea August 04, 2016 12:00am December 17, 2017 9:47am oxaprozin 600 mg oral tablet (10 sources) Nonsteroidal Anti-inflammatory Drug End: 10-21-2017 take 1 tablet by mouth once daily OXAPROZIN 600 MG TABS One tablet by mouth daily OXAPROZIN [id number] Ronda Peterson oxybutynin chloride 5 mg oral tablet (10 sources) Cholinergic Muscarinic Antagonist Start: 07-06-2013 End: 10-21-2017 take 1 tablet by mouth twice daily OXYBUTYNIN CHLORIDE 5 MG TABS One tablet by mouth twice daily OXYBUTYNIN CHLORIDE [id number] Wilma Capps oxyCODONE hydrochloride 5 mg oral tablet (15 sources) Opioid Agonist Start: 12-17-2023 End: 12-30-2023 take 2.5-10 mg by mouth every four hours as needed for pain Oxycodone 5 mg tablet Discontinued 2.5 - 10 mg PO Q4H as needed for pain 12 3 0 December 17, 2023 December 30, 2023 11:33am Other acute postprocedural pain Other acute postprocedural pain Start: 10-29-2023 take 5-10 mg by mout h every four hours Oxycodone Active 5 - 10 MG PO Q4H 14 3 October 29, 2023 polyethylene glycol 3350 42487 mg powder for oral solution (20 sources) Osmotic Laxative Start: 01-15-2023 End: 08-21-2023 Polyethylene Glycol 3350 (Miralax) 17 gram powder in packet Discontinued 17 g PO DAILY 14 0 January 15, 2023 1:00am August 21, 2023 10:25am sertraline 25 mg oral tablet (20 sources) Serotonin Reuptake Inhibitor Start: 05-03-2015 End: 05-06-2015 take 1 tablet by mouth once daily Sertraline (Zoloft) 25 MG tablet Discontinued 25 mg PO DAILY May 03, 2015 12:00am May 06, 2015 1:20pm ziprasidone 20 mg oral capsule (20 sources) Atypical Antipsychotic Start: 12-17-2017 End: 12-28-2024 take 1 capsule by mouth at bedtime Ziprasidone Hcl (Geodon) 20 mg capsule Discontinued 20 mg PO AT BEDTIME December 17, 2017 1:00am December 28, 2024 9:43am Start: 12-17-2017 take 1 capsule by mouth once Z iprasidone Hcl (Geodon) 20 mg capsule Active 20 MG PO ONCE December 17, 2017 1:00am GEODON CAPS ZIPR ASIDONE HCL CAPS [id number] Ronda Encarnacion BACK END WEB DEVELOPER Problems Active Problems Problem Classification Problem Date Documented Da te Episodic/Chronic Acute and unspecified renal failure (20 sources) Injury of kidney; Translations: [Acute kidney failure, unspecified] 03-20-2016 Episodic Comment on above: due to dehydration Administrative/social admission (2 sources) Dietary counseling and surveillance; Translations: [Dietary counseling and surveillance] Onset: 10-06-2025 Episodic Cardiac dysrhythmias (20 sources) Tachycardia; Translations: [Tachycardia, unspecified] 03-20-2016 Episodic Diabetes mellitus without complication (20 sources) Type 2 diabetes mellitus well controlled; Translations: [Type 2 diabetes mellitus without complication] Onset: 01-16-2017 01-16-2017 Chronic Essential hypertension (20 sources) Hypertensive disorder; Translations: [Essential (primary) hypertension] 01-21-2018 Chronic Comment on above: BP controlled. Fluid and electrolyte disorders (20 sources) Dehydration; Translations: [Dehydration] 03-20-2016 Episodic Headache; including migraine (20 sources) Headache; Translations: [Headache] 01-15-2022 Episodic Mood disorders (20 sources) Mixed anxiety and depressive disorder; Translations: [Depressive disorder] Onset: 04-15-2017 04-15-2017 Chronic Comment on above: Finds being confined to wheelchair exhausting. Is wanting to have surgery so bad. Is trying to lose weight but it is very difficult when she cant walk. Osteoarthritis (20 sources) Osteoarthritis of hip; Translations: [Osteoarthritis of hip, unspecified] 07-06-2013 Chronic Other aftercare (13 sources) Follow-up status; Translations: [Encounter for other orthopedic aftercare] 11-13-2023 Episodic Other aftercare (9 sources) Encounter for other orthopedic aftercare; Translations: [Unspecified orthopedic aftercare] 11-13-2023 Episodic Other gastrointestinal disorders (20 sources) Constipation; Translations: [Constipation, unspecified] 01-15-2023 Episodic Other gastrointestinal disorders (6 sources) Constipation, unspecified; Translations: [Constipation, unspecified] 01-15-2023 Episodic Other nervous system disorders (16 sources) Carpal tunnel syndrome; Translations: [Carpal tunnel syndrome, bilateral upper limbs] 08-21-2023 Chronic Other nervous system disorders (18 sources) Carpal tunnel syndrome, bilateral upper limbs; Translations: [Carpal tunnel syndrome] 08-21-2023 Chronic Other nervous system disorders (2 sources) Bilateral carpal tunnel syndrome; Translations: [Carpal tunnel syndrome, bilateral upper limbs] 08-21-2023 Chronic Other nervous system disorders (15 sources) Acute postoperative pain; Translations: [Other acute postprocedural pain] 10-29-2023 Episodic Other non-traumatic joint disorders (7 sources) Pain in wrist; Translations: [Pain in left wrist] 12-28-2024 Episodic Other non-traumatic joint disorders (2 sources) Pain of left wrist; Translations: [Pain in left wrist] 12-28-2024 Episodic Other nutritional; endocrine; and metabolic disorders (13 sources) Overweight; Translations: [Body mass index 40+ - severely obese] Onset: 01-16-2017 04-15-2017 Chronic Other nutritional; endocrine; and metabolic disorders (20 sources) Morbid obesity; Translations: [Morbid (severe) obesity due to excess calories] 04-16-2018 Chronic Other nutritional; endocrine; and metabolic disorders (6 sources) Morbid (severe) obesity due to excess calories; Translations: [Morbid obesity] 08-21-2023 Chronic Other skin disorders (20 sources) Localized desquamation; Translations: [Changes in skin texture] 03-20-2016 Episodic Other skin disorders (17 sources) Peeling of skin; Translations: [Changes in skin texture] 03-20-2016 Episodic Comment on above: posterior thighs due to maceration from lying in wet urine soaked sheets Residual codes; unclassified (20 sources) Obstructive sleep apnea syndrome; Translations: [Obstructive sleep apnea (adult) (pediatric)] 03-20-2016 Chronic Residual codes; unclassified (20 sources) Sedentary lifestyle; Translations: [Other specified personal risk factors, not elsewhere classified] 03-20-2016 Episodic Residual codes; unclassified (20 sources) Emotional state finding; Translations: [Nervousness] 01-15-2022 Episodic Skin and subcutaneous tissue infections (20 sources) Cellulitis of lower limb; Translations: [Cellulitis of right lower limb] 03-20-2016 Episodic Spondylosis; intervertebral disc disorders; other back problems (20 sources) Cervico-occipital neuralgia; Translations: [Occipital neuralgia] 01-15-2022 Episodic Unclassified (3 sources) Body mass index 40+ - severely obese; Translations: [Other specified health status] Onset: 01-16-2017 01-16-2017 Chronic Past or Other Problems Problem Classification Problem Date Documented Da te Episodic/Chronic Abdominal hernia (8 sources) Umbilical hernia; Translations: [Umbilical hernia without obstruction or gangrene] Onset: 09-19-2011 09-19-2011 Episodic Other connective tissue disease (1 source) Cramp and spasm; Translations: [Cramp and spasm] Onset: 12-16-2024 Episodic Other non-traumatic joint disorders (1 source) Pain in right wrist; Translations: [Pain in right wrist] Onset: 12-28-2024 Episodic Other screening for suspected conditions (not mental disorders or infectious disease) (1 source) Encounter for screening mammogram for malignant neoplasm of breast; Translations: [Encounter for screening mammogram for malignant neoplasm of breast] Onset: 01-14-2025 Episodic Results Test Name Value Interpretation Reference Range Facility Anion gap in Serum or Plasma Ordered By: Shaheen Ocampo on 08-25-2025 Anion gap [Moles/Vol] 12 mmol/L - [facility] BUN/creatinine ratioOrdered By: Shaheen Ocampo on 08-25-2025 Urea nitrogen/Creatinine [Mass ratio] 29.8 mg/mg High 09-13 [facility] Bilirubin, totalOrdered By: Shaheen Ocampo on 08-25-2025 Bilirubin [Mass/Vol] 0.51 mg/dL 0.00-1.30 [facility] Calculated very low density lipoprotein (VLDL) cholesterol measurementOrdered By: Shaheen Ocampo on 08-25-2025 Calculated very low density lipoprotein (VLDL) cholesterol measurement 24 mg/dL -40 [facility] Carbon dioxide, total [Moles /volume] in Central venous bloodOrdered By: Shaheen Ocampo on 08-25-2025 CO2 [Moles/Vol] 24.5 mmol/L 21.0-32.0 [facility] Chloride assayOrdered By: Nathaniel Ocampo on 08-25-2025 Chloride [Moles/Vol] 105 mmol/L 98-108 [facility] Comprehensive Metabolic Prof ilon 08-25-2025 Albumin [Mass/Vol] 4.0 g/dL Normal 3.5-5.0 [facility] Comment on above: Performed By: #### L 501.1400, L500.4100, L500.4050 #### [facility] [address] [place], [address] Albumin/Globulin [Mass ratio] 1.2 {ratio} Normal 0.9-2.4 [facility] Comment on above: Performed By: #### L 501.1400, L500.4100, L500.4050 #### [facility] [address] [place], [address] ALK PHOS 94 U/L Normal 35-104 [facility] Comment on above: Performed By: #### L [id number], [id number], [id number] #### [facility] [address] [place], [address] ALT [Catalytic activity/Vol] 29 U/L Normal <=34 [facility] Comment on above: Performed By: #### L [id number], [id number], [id number] #### [facility] [address] [place], [address] AST [Catalytic activity/Vol] 49 U/L High <=31 [facility] Comment on above: Performed By: #### L [id number], [id number], [id number] #### [facility] [facility] [address] [place], [address] Bilirubin [Mass/Vol] 0.51 mg/dL Normal 0.00-1.30 [facility] Comment on above: Performed By: #### L 501.1400, L500.4100, L500.4050 #### [facility] [address] [place], [address] BUN/CRE 29.8 RATIO High 10-20 [facility] Comment on above: Performed By: #### L 501.1400, L500.4100, L500.4050 #### [facility] [address] [place], [address] Calcium [Mass/Vol] 9.7 mg/dL Normal 7.6-11.0 [facility] Comment on above: Performed By: #### L 501.1400, L500.4100, L500.4050 #### [facility] [address] [place], [address] Chloride [Moles/Vol] 105 mmol/L Normal 98-108 [facility] Comment on above: Performed By: #### L 501.1400, L500.4100, L500.4050 #### [facility] [address] [place], [address] CO2 [Moles/Vol] 24.5 mmol/L Normal 21.0-32.0 [facility] Comment on above: Performed By: #### L 501.1400, L500.4100, L500.4050 #### [facility] [address] [place], [address] Creatinine [Mass/Vol] 0.65 mg/dL Low 0.70-1.20 [facility] Comment on above: Performed By: #### L 501.1400, L500.4100, L500.4050 #### [facility] [address] [place], [address] GAP 12 Normal 5-15 [facility] Comment on above: Performed By: #### L 501.1400, L500.4100, L500.4050 #### [facility] [address] [place], [address] GFR/1.73 sq M.predicted among non-blacks MDRD (S/P/Bld) [Vol rate/Area] 105 mL/min/{1.73_m2} Normal >60 [facility] Comment on above: Result Comment: mL/m in/1.73m2 CKD-EPI Creatinine Equation (2020) Performed By: #### L 501.1400, L500.4100, L500.4050 #### [facility] [address] [place], [address] Globulin (S) [Mass/Vol] 3.3 g/dL Normal 2.2-4.2 [facility] Comment on above: Performed By: #### L 501.1400, L500.4100, L500.4050 #### [facility] [address] [place], [address] Glucose [Mass/Vol] 120 mg/dL High 70-99 [facility] Comment on above: Performed By: #### L 501.1400, L500.4100, L500.4050 #### [facility] [address] [place], [address] Potassium [Moles/Vol] 4.4 mmol/L Normal 3.3-5.1 [facility] Comment on above: Performed By: #### L 501.1400, L500.4100, L500.4050 #### [facility] [address] [place], [address] Sodium [Moles/Vol] 142 mmol/L Normal 133-145 [facility] Comment on above: Performed By: #### L 501.1400, L500.4100, L500.4050 #### [facility] [address] [place], [address] T PROT 7.4 g/dL Normal 5.9-8.4 [facility] Comment on above: Performed By: #### L 501.1400, L500.4100, L500.4050 #### [facility] [address] [place], [address] Urea nitrogen [Mass/Vol] 19 mg/dL Normal 4-19 [facility] Comment on above: Performed By: #### L 501.1400, L500.4100, L500.4050 #### [facility] [address] [place], [address] Glomerular filtration rate ( GFR) estimation/1.73 sq m using serum, plasma, or whole bOrdered By: Shaheen Ocampo on 08-25-2025 GFR/1.73 sq M.predicted among non-blacks MDRD (S/P/Bld) [Vol rate/Area] 105 mL/min/{1.73_m2} >60 [facility] Comment on above: mL/min/1.73m2 CKD-EP I Creatinine Equation (2020) LDL calc ser/plasOrdered By: Shaheen Ocampo on 08-25-2025 Cholesterol in LDL [Mass/Vol] 48 mg/dL [facility] Comment on above: Ugdlfzeqik=528-927 m g/dL & Higher Gvtg=330 mg/dL or greaterFriedwald Equation for LDL-C Laboratory - Chemistry and C hemistry - challengeOrdered By: Shaheen Ocampo on 08-25-2025 AST [Catalytic activity/Vol] 49 U/L High <32 [facility] Lipid Profileon 08-25-2025 CHOL:HDL 2.66 Normal [facility] Comment on above: Performed By: #### L 501.1400, L500.4100, L500.4050 #### [facility] [address] [place], [address] Cholesterol [Mass/Vol] 114 mg/dL Normal <=200 [facility] Comment on above: Result Comment: Chol esterol level, Desirable <200 mg/dL Borderline high cholesterol 200-239 mg/dL High cholesterol >=240 mg/dL Recommendations of the NCEP Adult Treatment Panel for the following risk-cutoff thresholds for the [place] population. Performed By: #### L 501.1400, L500.4100, L500.4050 #### [facility] [address] [place], [address] Cholesterol in HDL [Mass/Vol] 43 mg/dL Normal [facility] Comment on above: Result Comment: Jumana onal Cholesterol Education Program (NCEP) guidelines: <40 mg/dL: Low HDL-cholesterol (major risk factor for CHD) >= 60 mg/dL: High HDL-cholesterol (negative risk factor for CHD) HDL-cholesterol is affected by a number of factors, e.g. smoking, exercise, hormones, sex and age. Performed By: #### L 501.1400, L500.4100, L500.4050 #### [facility] [address] [place], [address] Cholesterol in LDL [Mass/Vol] 48 mg/dL Normal [facility] Comment on above: Result Comment: Bord qbteon=910-975 mg/dL Higher Mgxl=670 mg/dL or greater Friedwald Equation for LDL-C Performed By: #### L 501.1400, L500.4100, L500.4050 #### [facility] [address] [place], [address] Cholesterol in VLDL [Mass/Vol] 24 mg/dL Normal 5-40 [facility] Comment on above: Performed By: #### L 501.1400, L500.4100, L500.4050 #### [facility] [address] [place], [place], [id number] Triglyceride [Mass/Vol] 118 mg/dL Normal [facility] Comment on above: Result Comment: The drugs N-Acetylcysteine and Metamizole may falsely depress this assay. Normal range: <150 mg/dL Borderline High: 150-199 mg/dL High: 200-499 mg/dL Very High: >500 mg/dL Performed By: #### L 501.1400, L500.4100, L500.4050 #### [facility] [address] [place], [place], [address] Potassium measurement (mass/ volume)Ordered By: Shaheen Ocampo on 08-25-2025 Potassium (Unsp spec) [Mass/Vol] 4.4 mmol/L 3.3-5.1 [facility] Screening total cholesterol/ high density lipoprotein (HDL) cholesterol ratioOrdered By: Shaheen Ocampo on 08-25-2025 Cholesterol.total/Ch olesterol in HDL [Mass ratio] 2.66 {ratio} [facility] Serum creatinine measurement (mass/volume)Ordered By: Shaheen Ocampo on 08-25-2025 Creatinine [Mass/Vol] 0.65 mg/dL Low 0.70-1.20 [facility] Serum globulin measurementOr dered By: Shaheen Ocampo on 08-25-2025 Globulin (S) [Mass/Vol] 3.3 g/dL 2.2-4.2 [facility] Serum glucose measurement (m ass/volume)Ordered By: Shaheen Ocampo on 08-25-2025 Glucose [Mass/Vol] 120 mg/dL High 70-99 [facility] Serum or plasma alanine corado otransferase (ALT) measurementOrdered By: Shaheen Ocampo on 08-25-2025 ALT [Catalytic activity/Vol] 29 U/L <35 [facility] Serum or plasma albumin bambi urement (mass/volume)Ordered By: Shaheen Ocampo on 10-01-2025 Albumin [Mass/Vol] 4.0 g/dL 3.5-5.0 [facility] Serum or plasma albumin/glob ulin mass ratioOrdered By: Shaheen Ocampo on 08-25-2025 Albumin/Globulin [Mass ratio] 1.2 {ratio} 0.9-2.4 [facility] Serum or plasma alkaline primo sphatase measurementOrdered By: Shaheen Ocampo on 08-25-2025 ALP [Catalytic activity/Vol] 94 U/L 35-104 [facility] Serum or plasma calcium bambi urement (mass/volume)Ordered By: Shaheen Ocampo on 08-25-2025 Calcium [Mass/Vol] 9.7 mg/dL 7.6-11.0 [facility] Serum or plasma cholesterol in HDL measurement (mass/volume)Ordered By: Shaheen Ocampo on 08-25-2025 Cholesterol in HDL [Mass/Vol] 43 mg/dL >40 [facility] Comment on above: National Cholesterol Education Program (NCEP) guidelines:<40 mg/dL: Low HDL-cholesterol (major risk factor for CHD)>= 60 mg/dL: High HDL-cholesterol (negative risk factor for CHD)HDL-cholesterol is affected by a number of factors, e.g. smoking, exercise, hormones, sex and age. Serum or plasma cholesterol measurement (mass/volume)Ordered By: Shaheen Ocampo on 08-25-2025 Cholesterol [Mass/Vol] 114 mg/dL <201 [facility] Comment on above: Cholesterol level, D esirable <200 mg/dLBorderline high cholesterol 200-239 mg/dLHigh cholesterol >=240 mg/dLRecommendations of the NCEP Adult Treatment Panel for the following risk-cutoff thresholds for the [place] population. Serum or plasma urea nitroge n measurement (mass/volume)Ordered By: Shaheen Ocampo on 08-25-2025 Urea nitrogen [Mass/Vol] 19 mg/dL 4-19 [facility] Serum or plasma uric acid me asurement (mass/volume)Ordered By: Shaheen Ocampo on 08-25-2025 Urate [Mass/Vol] 7.0 mg/dL High 2.6-6.0 [facility] Comment on above: The drugs N-Acetylcy steine and Metamizole may falsely depress this assay. Sodium levelOrdered By: Shaheen Ocampo on 08-25-2025 Sodium [Moles/Vol] 142 mmol/L 133-145 [facility] Total proteinOrdered By: Linda Ocampo on 08-25-2025 Protein [Mass/Vol] 7.4 g/dL 5.9-8.4 [facility] Triglycerides measurementOrd ered By: Shaheen Ocampo on 08-25-2025 Triglyceride [Mass/Vol] 118 mg/dL <199 [facility] Comment on above: The drugs N-Acetylcy steine and Metamizole may falsely depress this assay. Normal range: <150 mg/dLBorderline High: 150-199 mg/dLHigh: 200-499 mg/dLVery High: >500 mg/dL Uric Acidon 08-25-2025 URIC 7.0 mg/dL High 2.6-6.0 [facility] Comment on above: Result Comment: The drugs N-Acetylcysteine and Metamizole may falsely depress this assay. Performed By: #### L 501.1400, L500.4100, L500.4050 #### [facility] [address] [place], [place], [address] SCRN MAMM (CAD)W/VIRAL BILATo n 12-31-2024 SCRN MAMM (CAD)W/VIRAL BILAT [facility] Imaging Services [address] [place], [place] [address] SCRN MAMM (CAD)W/VIRAL BILAT MR#: [id number] Acct: [id number] Name: LEELEE LONGO Rep #: [id number] : 1970 F 54 From: Sunil esposito MD PCP: Dr. Shaheen Ocampo MD Status: [facility] Study: SCRN MAMM (CAD)W/VIRAL BILAT Date of Exam: 05/19 Exam# [id number] Ordering Dr: Shaheen Ocampo MD PROCEDURE: SCRN MAMM (CAD)W/VIRAL BILAT REASON FOR EXAM: F, Age 54 y/o, no family history. Routine mammographic follow-up. TECHNIQUE: Bilateral screening digital breast tomosynthesis with 2D and 3D images. Computer aided detection. COMPARISON: Prior exam(s) dating back to August 07, 2023.. FINDINGS: There are scattered areas of fibroglandular density. Stable bilateral fat containing axillary lymph nodes. No suspicious masses, areas of developing architectural distortion, or suspicious calcifications. BI/SCRN MAMM (CAD)W/VIRAL BILAT IMPRESSION: BI-RADS 2: BENIGN. RECOMMEND ANNUAL MAMMOGRAPHIC SCREENING. Follow-up code: Routine Follow-up The patient will be notified of the results by letter. Reading Location: [id number] CC: Dr. Shaheen Ocampo MD Environmental Programs Specialist: Signed Normal [facility] Orthopedic Visit Reporton Orthopedic Visit Report [facility] [address] [place] [address] [address] [place] [address] OFFICE VISIT Date of Service: 12/28/24 MR#: [id number] Acct: [id number] Name: LEELEE LONGO Rep #: [id number] : 1970 Provider: Dr. Ifeanyi oliva DO Age/Sex: 54/F [place] [facility] [place]: Signed Intake Vital Signs 12/21/24 10:00 Height 5 ft 1 in Intake Visit Reasons: RIGHT WRIST Chief Complaint: Right Wrist Pain Accompanied by: Self Is patient in pain?: Yes Pain scale (1-10): 6 Allergies Environmental Allergies: Uncoded (pine) Allergy (Verified 12/28/24 08:42) Rash adhesive Adverse Reaction (Verified 12/28/24 08:42) Rash Medications ???Medication ???Instructions ???Recorded ???Confirmed ???Type bupropion HCl 300 mg 24 hr tablet, 300 mg PO DAILY 03/20/16 5 History extended release gabapentin 300 mg capsule 300 mg PO BIDCM 03/20/16 12/28/24 History meloxicam 15 mg tablet 15 mg PO DAILY 03/20/16 12/28/24 H istory blood sugar diagnostic (FreeStyle #100 ea 10/27/18 12/28/24 Rx Test strips) lisinopril 2.5 mg tablet 2.5 mg PO DAILY 01/15/23 12/28/24 History loratadine 10 mg tablet (Allergy 10 mg PO DAILY 01/15/23 12/28/24 H istory Relief (loratadine)) venlafaxine 150 mg 150 mg PO DAILY 01/15/23 12/28/24 History capsule,extended release 24 hr B-complex with vitamin C 1 cap PO DAILY 08/21/23 12/28/24 H istory cholecalciferol (vitamin D3) 25 25 mcg PO DAILY 08/21/23 12/28/24 History mcg (1,000 unit) capsule metformin 500 mg tablet,extended 500 mg PO DAILY 08/21/23 12/28/24 History release 24 hr tramadol 50 mg tablet mg PO 12/30/23 12/28/24 History rosuvastatin 5 mg tablet 5 mg PO QDAY 12/28/24 12/28/24 His hemanth [facility] Medical History BiPAP (biphasic positive airway pressure) dependence Loss of hearing Depression Anxiety Alcohol use Diabetes Uses wheelchair Low iron Restless legs Back pain Migraine headache Injury of head and neck Dietary restriction Difficulty swallowing Heartburn Non-smoker Leg cramps History of pain when walking History of edema HTN (hypertension) Surgical History History of carpal tunnel surgery of right wrist History of tonsillectomy and adenoidectomy History of H/O: hysterectomy Family History Mother Heart disease Arthritis Social History household members: none Smoking Status: Never smoker second hand exposure: No alcohol intake: never substance use type: does not use HPI RIGHT WRIST Details: This documentation accurately reflects the service provided and the decisions made by me, Dr. Ifeanyi Jacob, DO 12/28/24 0752. Part of today???s visit was documented by Shruti Salter ATC, acting as scribe. LEELEE LONGO is a 54 year old F with medical history significant for but not limited to impetigo, diabetes type 2, history of sedentary lifestyle, morbid obesity, depression, hypertension obstructive sleep apnea, here today for right wrist pain. Patient rates the pain a 6/10 today and states both wrists are bothering her but the right wrist is worse. Patient states the wrists have been bothering her for about 3 months now. Patient describes the pain at the base of the wrists and she gets pain up both sides of the wrists into the forearms. Patient had right open carpal tunnel release on 10/29/2023 and left open carpal tunnel release on 12/17/2023. She denies any numbness/tingling. She denies any recent falls or injuries to the wrists. Denies any previous trauma to the wrist. She is RHD. Ortho Exam General General: Yes no acute distress Neurologic: Yes alert and Yes oriented x3 Psychologic: Yes reasonable and appropriate Right Wrist/Hand Skin/Wound: No Swelling, No Ecchymosis, Yes nail intact and Yes capillary refill normal WRIST: 50 wrist EXT 50 wrist FLEX 3 radial deviation 12 ulnar deviation 88 supination full pronation intact flexor/extensor tendons no signs of infection or cellulitis No DRUJ instability Left Wrist/Hand Skin/Wound: No Swelling, No Ecchymosis and No erythema WRIST: About similar range of motion as her right wrist no signs of infection Supplemental Info 12/28/2024 x-ray right wrist: 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 This is (more content not included)... Normal [facility] Wrist min 3 Viewson 12-28-19 25 Wrist min 3 Views [facility] Imaging Services [address] [place] [address] Wrist min 3 Views MR#: [id number] Acct: [id number] Name: LEELEE LONGO Rep #: [id number] : 1970 F 54 From: Dylon Curran MD PCP: Dr. Shaheen Ocampo MD Status: DEP AMB Study: Wrist min 3 Views Date of Exam: 12/28/24 Exam# [id number] Ordering Dr: Ifeanyi Jacob DO EXAM: XR Right Wrist Complete, 3 or More Views CLINICAL INDICATION: TECHNIQUE: Frontal, lateral and oblique views of the right wrist. COMPARISON: No relevant prior studies available. FINDINGS: BONES/JOINTS: Moderate degenerative changes of the radiocarpal joint. SOFT TISSUES: Soft tissue swelling without acute fracture. No radiopaque foreign body. RAD/Wrist min 3 Views IMPRESSION: 1. Soft tissue swelling without acute fracture. 2. If symptoms persist, repeat radiograph in 7-10 days recommended. Reading Location: [facility] CC: Dr. Ifeanyi Jacob DO; Dr. Shaheen Ocampo MD Environmental Programs Specialist: Signed Normal [facility] Albumin to globulin ratioOrd ered By: Shaheen Ocampo on 11-13-2024 Albumin/Globulin [Mass ratio] 0.7 {ratio} Low 0.9-2.4 [facility] Bilirubin, totalOrdered By: Shaheen Ocampo on 11-13-2024 Bilirubin [Mass/Vol] 0.30 mg/dL 0.20-1.00 [facility] Comment on above: For patients on eltr ombopag therapy, use of Dimension [place] TBIL is not recommended. Blood urea nitrogen (BUN)/cr eatinine ratioOrdered By: Shaheen Ocampo on 11-13-2024 Urea nitrogen/Creatinine [Mass ratio] 28.2 mg/mg High 09-13 [facility] Carbon dioxide measurementOr dered By: Shaheen Ocampo on 11-13-2024 CO2 [Moles/Vol] 28.0 mmol/L 21.0-32.0 [facility] Chloride measurementOrdered By: Shaheen Ocampo on 11-13-2024 Chloride [Moles/Vol] 106 mmol/L 98-107 [facility] Comprehensive Metabolic Prof ilon 11-13-2024 Albumin [Mass/Vol] 3.2 g/dL Normal 3.2-5.0 [facility] Comment on above: Performed By: #### L 500.4050, L501.5200, L502.0250, L500.4100 #### [facility] [place], [address] Albumin/Globulin [Mass ratio] 0.7 {ratio} Low 0.9-2.4 [facility] Comment on above: Performed By: #### L 500.4050, L501.5200, L502.0250, L500.4100 #### [facility] [address] [place], [address] ALK P 101 U/L Normal 45-117 [facility] Comment on above: Performed By: #### L 500.4050, L501.5200, L502.0250, L500.4100 #### [facility] [address] [place], [address] ALT [Catalytic activity/Vol] 22 U/L Normal 13-56 [facility] Comment on above: Performed By: #### L 500.4050, L501.5200, L502.0250, L500.4100 #### [facility] [address] [place], [address] AST [Catalytic activity/Vol] 13 U/L Low 15-37 [facility] Comment on above: Performed By: #### L 500.4050, L501.5200, L502.0250, L500.4100 #### [facility] [address] [place], [address] Bilirubin [Mass/Vol] 0.30 mg/dL Normal 0.20-1.00 [facility] Comment on above: Result Comment: For patients on eltrombopag therapy, use of Dimension [place] TBIL is not recommended. Performed By: #### L 500.4050, L501.5200, L502.0250, L500.4100 #### [facility] [address] [place], [address] BUN/CRE 28.2 RATIO High 10-20 [facility] Comment on above: Performed By: #### L 500.4050, L501.5200, L502.0250, L500.4100 #### [facility] [address] [place], [address] CA,Total 9.3 mg/dL Normal 8.5-10.1 [facility] Comment on above: Performed By: #### L 500.4050, L501.5200, L502.0250, L500.4100 #### [facility] [address] [place], [address] Chloride [Moles/Vol] 106 mmol/L Normal 98-107 [facility] Comment on above: Performed By: #### L 500.4050, L501.5200, L502.0250, L500.4100 #### [facility] [address] [place], [address] CO2 [Moles/Vol] 28.0 mmol/L Normal 21.0-32.0 [facility] Comment on above: Performed By: #### L 500.4050, L501.5200, L502.0250, L500.4100 #### [facility] [address] [place], [address] Creatinine [Mass/Vol] 0.82 mg/dL Normal 0.55-1.02 [facility] Comment on above: Result Comment: The validity of the calculated GFR GFRAA in patients over 70 years has not been determined. Clinical correlation is essential. Performed By: #### L 500.4050, L501.5200, L502.0250, L500.4100 #### [facility] [address] [place], [address] EST GFR - AA 94 mL/min Normal >60 [facility] Comment on above: Result Comment: Afri can [place] GFR Calc Performed By: #### L 500.4050, L501.5200, L502.0250, L500.4100 #### [facility] [address] [place], [address] GAP 4 Low 5-15 [facility] Comment on above: Performed By: #### L 500.4050, L501.5200, L502.0250, L500.4100 #### [facility] [address] [place], [address] GFR/1.73 sq M.predicted among non-blacks MDRD (S/P/Bld) [Vol rate/Area] 78 mL/min/{1.73_m2} Normal >60 [facility] Comment on above: Result Comment: Non- GFR Calc Performed By: #### L 500.4050, L501.5200, L502.0250, L500.4100 #### [facility] [address] [place], [address] Globulin (S) [Mass/Vol] 4.3 g/dL High 2.2-4.2 [facility] Comment on above: Performed By: #### L 500.4050, L501.5200, L502.0250, L500.4100 #### [facility] [address] [place], [address] Glucose [Mass/Vol] 103 mg/dL Normal 74-106 [facility] Comment on above: Result Comment: Fast ing Glucose result from 100 to 125 mg/dL suggests IMPAIRED HOMEOSTASIS per A.D.A. criteria. Performed By: #### L 500.4050, L501.5200, L502.0250, L500.4100 #### [facility] [address] [place], [address] Potassium [Moles/Vol] 4.6 mmol/L Normal 3.5-5.1 [facility] Comment on above: Performed By: #### L 500.4050, L501.5200, L502.0250, L500.4100 #### [facility] [address] [place], [address] Sodium [Moles/Vol] 138 mmol/L Normal 136-145 [facility] Comment on above: Performed By: #### L 500.4050, L501.5200, L502.0250, L500.4100 #### [facility] [address] [place], [address] T PROT 7.5 g/dL Normal 6.4-8.2 [facility] Comment on above: Performed By: #### L 500.4050, L501.5200, L502.0250, L500.4100 #### [facility] [address] [place], [address] Urea nitrogen [Mass/Vol] 23 mg/dL High 7-18 [facility] Comment on above: Performed By: #### L 500.4050, L501.5200, L502.0250, L500.4100 #### [facility] [address] [place], [address] Estimated glomerular filtrat ion rate (GFR) AmericanOrdered By: Shaheen Ocampo on 11-13-2024 Estimated GFR (MDRD) Amer 94 mL/min >60 [facility] Comment on above: GFR Calc Glomerular filtration rate ( GFR) estimationOrdered By: Shaheen Ocampo on 11-13-2024 Estimated GFR (MDRD) Non-Af Amer 78 mL/min >60 [facility] Comment on above: Non- GFR Calc Glucose measurementOrdered B y: Shaheen Ocampo on 11-13-2024 Glucose [Mass/Vol] 103 mg/dL 74-106 [facility] Comment on above: Fasting Glucose resu lt from 100 to 125 mg/dL suggests IMPAIRED HOMEOSTASIS per A.D.A. criteria. High density lipoprotein (HD L) measurementOrdered By: Shaheen Ocampo on 11-13-2024 Cholesterol in HDL [Mass/Vol] 60 mg/dL >40 [facility] Comment on above: The drugs N-Acetylcy steine and Metamizole may falsely depress this assay. Reference Range HDL <40 mg/dL Low HDL Cholesterol HDL >or= 60 mg/dL High HDL Cholesterol Laboratory - Chemistry and C hemistry - challengeOrdered By: Shaheen Ocampo on 11-13-2024 AST [Catalytic activity/Vol] 13 U/L Low 15-37 [facility] Lipid Profileon 11-13-2024 Cholesterol [Mass/Vol] 135 mg/dL Normal 200 [facility] Comment on above: Result Comment: <200 mg/dL Desirable 200-240 mg/dL Borderline >240 mg/dL High Risk Performed By: #### L 500.4050, L501.5200, L502.0250, L500.4100 #### [facility] [address] [place], [address] Cholesterol in HDL [Mass/Vol] 60 mg/dL Normal [facility] Comment on above: Result Comment: The drugs N-Acetylcysteine and Metamizole may falsely depress this assay. Reference Range HDL <40 mg/dL Low HDL Cholesterol HDL >or= 60 mg/dL High HDL Cholesterol Performed By: #### L 500.4050, L501.5200, L502.0250, L500.4100 #### [facility] [address] [place], [address] Cholesterol in LDL [Mass/Vol] 50 mg/dL Normal 0-130 [facility] Comment on above: Performed By: #### L [id number], L501.5200, L502.0250, L500.4100 #### [facility] [address] [place], [address] Cholesterol in VLDL [Mass/Vol] 25 mg/dL Normal 5-40 [facility] Comment on above: Performed By: #### L [id number], L501.5200, L502.0250, L500.4100 #### [facility] [address] [place], [address] Triglyceride [Mass/Vol] 127 mg/dL Normal [facility] Comment on above: Result Comment: The drugs N-Acetylcysteine and Metamizole may falsely depress this assay. Serum Triglycerides Reference Interval Normal <150 mg/dL Borderline high 150 - 199 mg/dL High 200 - 499 mg/dL Very High > or = 500 mg/dL Performed By: #### L [id number], [id number], L502.0250, L500.4100 #### [facility] [address] [place], [address] Low density lipoprotein (LDL ) cholesterol measurementOrdered By: Shaheen Ocampo on 11-13-2024 Cholesterol in LDL [Mass/Vol] 50 mg/dL 0-130 [facility] Magnesiumon 11-13-2024 Magnesium [Mass/Vol] 2.3 mg/dL Normal 1.6-2.6 [facility] Comment on above: Performed By: #### L [id number], [id number], L502.0250, L500.4100 #### [facility] [address] [place], [address] Magnesium measurementOrdered By: Shaheen Ocampo on 11-13-2024 Magnesium [Mass/Vol] 2.3 mg/dL 1.6-2.6 [facility] Microalb:Creat Ratio,Random URon 11-13-2024 MALB:CRE Normal <30 mg/g CRE [facility] Comment on above: Result Comment: UTO Performed By: #### L [id number], L501.5200, L502.0250, L500.4100 #### [facility] [address] [place], [address] MICROALBUMIN,UR Normal NO RANGE EST. [facility] Comment on above: Result Comment: UTO Performed By: #### L [id number], [id number], L502.0250, L500.4100 #### [facility] [address] [place], [address] UR CREAT Normal NO RANGE EST. [facility] Comment on above: Result Comment: UTO Performed By: #### L [id number], [id number], L502.0250, L500.4100 #### [facility] [address] [place], [address] Potassium measurementOrdered By: Shaheen Ocampo on 11-13-2024 Potassium [Moles/Vol] 4.6 mmol/L 3.5-5.1 [facility] Serum anion gap measurementO rdered By: Shaheen Ocampo on 11-13-2024 Anion gap [Moles/Vol] 4 mmol/L Low 5-15 [facility] Serum globulin measurementOr dered By: Shaheen Ocampo on 11-13-2024 Globulin (S) [Mass/Vol] 4.3 g/dL High 2.2-4.2 [facility] Serum or plasma alanine corado otransferase (ALT) measurementOrdered By: Shaheen Ocampo on 11-13-2024 ALT [Catalytic activity/Vol] 22 U/L 13-56 [facility] Serum or plasma albumin bambi urement (mass/volume)Ordered By: Shaheen Ocampo on 11-13-2024 Albumin [Mass/Vol] 3.2 g/dL 3.2-5.0 [facility] Serum or plasma alkaline primo sphatase measurementOrdered By: Shaheen Ocampo on 11-13-2024 ALP [Catalytic activity/Vol] 101 U/L 45-117 [facility] Serum or plasma calcium bambi urement (mass/volume)Ordered By: Shaheen Ocampo on 11-13-2024 Calcium [Mass/Vol] 9.3 mg/dL 8.5-10.1 [facility] Serum or plasma cholesterol measurement (mass/volume)Ordered By: Shaheen Ocampo on 11-13-2024 Cholesterol [Mass/Vol] 135 mg/dL <200 [facility] Comment on above: <200 mg/dL Desirable 200-240 mg/dL Borderline >240 mg/dL High Risk Serum or plasma creatinine m easurement (mass/volume)Ordered By: Shaheen Ocampo on 11-13-2024 Creatinine [Mass/Vol] 0.82 mg/dL 0.55-1.02 [facility] Comment on above: The validity of the calculated GFR & GFRAA in patients over 70 years has not been determined. Clinical correlation is essential. Serum or plasma urea nitroge n measurement (mass/volume)Ordered By: Shaheen Ocampo on 11-13-2024 Urea nitrogen [Mass/Vol] 23 mg/dL High 7-18 [facility] Sodium levelOrdered By: Shaheen Ocampo on 11-13-2024 Sodium [Moles/Vol] 138 mmol/L 136-145 [facility] Total proteinOrdered By: Linda Ocampo on 11-13-2024 Protein [Mass/Vol] 7.5 g/dL 6.4-8.2 [facility] Triglycerides measurementOrd ered By: Shaheen Ocampo on 11-13-2024 Triglyceride [Mass/Vol] 127 mg/dL <199 [facility] Comment on above: The drugs N-Acetylcy steine and Metamizole may falsely depress this assay.Serum Triglycerides Reference Interval Normal <150 mg/dL Borderline high 150 - 199 mg/dL High 200 - 499 mg/dL Very High > or = 500 mg/dL Very low density lipoprotein (VLDL) cholesterol measurementOrdered By: Shaheen Ocampo on 11-13-2024 VLDL Cholesterol 25 mg/dL 5-40 [facility] Basophil percentageOrdered B y: Shaheen Ocampo on 01-29-2024 Chloride [Moles/Vol] 107 mmol/L 98-107 [facility] Cholesterol [Mass/Vol] 139 mg/dL <200 [facility] Comment on above: <200 mg/dL Desirable 200-240 mg/dL Borderline >240 mg/dL High Risk Glucose [Mass/Vol] 126 mg/dL 74-106 [facility] Comment on above: Fasting Glucose resu lt greater than or equal to 126 mg/dL suggests DIABETES MELLITUS per A.D.A. criteria. Potassium [Moles/Vol] 4.5 mmol/L 3.5-5.1 [facility] Sodium [Moles/Vol] 142 mmol/L 136-145 [facility] Triglyceride [Mass/Vol] 97 mg/dL <199 [facility] Comment on above: The drugs N-Acetylcy steine and Metamizole may falsely depress this assay.Serum Triglycerides Reference Interval Normal <150 mg/dL Borderline high 150 - 199 mg/dL High 200 - 499 mg/dL Very High > or = 500 mg/dL Laboratory - Chemistry and C hemistry - challengeOrdered By: Shaheen Ocampo on 01-29-2024 Cholesterol in HDL [Mass/Vol] 54 mg/dL >40 [facility] Comment on above: The drugs N-Acetylcy steine and Metamizole may falsely depress this assay. Reference Range HDL <40 mg/dL Low HDL Cholesterol HDL >or= 60 mg/dL High HDL Cholesterol Cholesterol in LDL [Mass/Vol] 66 mg/dL 0-130 [facility] CO2 [Moles/Vol] 28.0 mmol/L 21.0-32.0 [facility] Urea nitrogen/Creatinine [Mass ratio] 31.5 mg/mg 10-20 [facility] No Panel InformationOrdered By: Shaheen Ocampo on 01-29-2024 Estimated GFR (MDRD) Amer 82 mL/min >60 [facility] Comment on above: GFR Calc Estimated GFR (MDRD) Non-Af Amer 68 mL/min >60 [facility] Comment on above: Non- GFR Calc VLDL Cholesterol 19 mg/dL 5-40 [facility] Serum or plasma calcium bambi urement (mass/volume)Ordered By: Shaheen Ocampo on 01-29-2024 Calcium [Mass/Vol] 9.2 mg/dL 8.5-10.1 [facility] Serum or plasma creatinine m easurement (mass/volume)Ordered By: Shaheen Ocampo on 01-29-2024 Creatinine [Mass/Vol] 0.92 mg/dL 0.55-1.02 [facility] Comment on above: The validity of the calculated GFR & GFRAA in patients over 70 years has not been determined. Clinical correlation is essential. Serum or plasma urea nitroge n measurement (mass/volume)Ordered By: Shaheen Ocampo on 01-29-2024 Urea nitrogen [Mass/Vol] 29 mg/dL 7-18 [facility] Thin prep Papanicolaou smear with manual screeningOrdered By: Shaheen Ocampo on 01-29-2024 Thin prep Papanicolaou smear with manual screening 7 5-15 [facility] Thin prep Papanicolaou smear with manual screeningOrdered By: Ifeanyi Jacob on 12-17-2023 Thin prep Papanicolaou smear with manual screening 123 mg/dL 74-106 [facility] Comment on above: MANAGEMENT OF PATIEN T CARE PER NURSING PROTOCOL Basophil percentageOrdered B y: Shaheen Ocampo on 11-28-2023 Chloride [Moles/Vol] 107 mmol/L 98-107 [facility] Cholesterol [Mass/Vol] 221 mg/dL <200 [facility] Comment on above: <200 mg/dL Desirable 200-240 mg/dL Borderline >240 mg/dL High Risk Glucose [Mass/Vol] 211 mg/dL 74-106 [facility] Comment on above: Glucose result great er than or equal to 200 mg/dLsuggests DIABETES MELLITUS per A.D.A. criteria. Potassium [Moles/Vol] 4.1 mmol/L 3.5-5.1 [facility] Sodium [Moles/Vol] 138 mmol/L 136-145 [facility] Triglyceride [Mass/Vol] 169 mg/dL <199 [facility] Comment on above: The drugs N-Acetylcy steine and Metamizole may falsely depress this assay.Serum Triglycerides Reference Interval Normal <150 mg/dL Borderline high 150 - 199 mg/dL High 200 - 499 mg/dL Very High > or = 500 mg/dL Laboratory - Chemistry and C hemistry - challengeOrdered By: Shaheen Ocampo on 11-28-2023 CO2 [Moles/Vol] 24.0 mmol/L 21.0-32.0 [facility] Urea nitrogen/Creatinine [Mass ratio] 21.3 mg/mg 10-20 [facility] No Panel InformationOrdered By: Shaheen Ocampo on 11-28-2023 Estimated GFR (MDRD) Amer 76 mL/min >60 [facility] Comment on above: GFR Calc Estimated GFR (MDRD) Non-Af Amer 63 mL/min >60 [facility] Comment on above: Non- GFR Calc Serum or plasma calcium bambi urement (mass/volume)Ordered By: Shaheen Ocampo on 11-28-2023 Calcium [Mass/Vol] 8.6 mg/dL 8.5-10.1 [facility] Serum or plasma cholesterol in HDL measurement (mass/volume)Ordered By: Shaheen Ocampo on 11-28-2023 Cholesterol in HDL [Mass/Vol] 54 mg/dL >40 [facility] Comment on above: The drugs N-Acetylcy steine and Metamizole may falsely depress this assay. Reference Range HDL <40 mg/dL Low HDL Cholesterol HDL >or= 60 mg/dL High HDL Cholesterol Serum or plasma cholesterol in VLDL measurement (mass/volume)Ordered By: Shaheen Ocampo on 11-28-2023 Cholesterol in VLDL [Mass/Vol] 34 mg/dL 5-40 [facility] Serum or plasma creatinine m easurement (mass/volume)Ordered By: Shaheen Ocampo on 11-28-2023 Creatinine [Mass/Vol] 0.98 mg/dL 0.55-1.02 [facility] Comment on above: The validity of the calculated GFR & GFRAA in patients over 70 years has not been determined. Clinical correlation is essential. Serum or plasma low density lipoprotein (LDL) cholesterol measurement (mass/volume)Ordered By: Shaheen Ocampo on 11-28-2023 Cholesterol in LDL [Mass/Vol] 133 mg/dL 0-130 [facility] Serum or plasma urea nitroge n measurement (mass/volume)Ordered By: Shaheen Ocampo on 11-28-2023 Urea nitrogen [Mass/Vol] 21 mg/dL 7-18 [facility] Thin prep Papanicolaou smear with manual screeningOrdered By: Shaheen Ocampo on 11-28-2023 Thin prep Papanicolaou smear with manual screening 7 5-15 [facility] Whole blood hemoglobin A1c/t otal hemoglobin ratio (mass fraction)Ordered By: Shaheen Ocampo on 11-28-2023 HbA1c (Bld) [Mass fraction] 5.4 % 3.8-5.6 [facility] Comment on above: Normal < 5.7 % Predi abetic 5.7 - 6.4 % Diabetic >or= 6.5 % Please note range changes. Basophil percentageOrdered B y: Shaheen Ocampo on 08-05-2023 Bilirubin [Mass/Vol] 0.30 mg/dL 0.20-1.00 [facility] Comment on above: For patients on eltr ombopag therapy, use of Dimension [place] TBIL is not recommended. Chloride [Moles/Vol] 104 mmol/L 98-107 [facility] Cholesterol [Mass/Vol] 176 mg/dL <200 [facility] Comment on above: <200 mg/dL Desirable 200-240 mg/dL Borderline >240 mg/dL High Risk Glucose [Mass/Vol] 100 mg/dL 74-106 [facility] Comment on above: Fasting Glucose resu lt from 100 to 125 mg/dL suggests IMPAIRED HOMEOSTASIS per A.D.A. criteria. Potassium [Moles/Vol] 4.4 mmol/L 3.5-5.1 [facility] Protein [Mass/Vol] 7.8 g/dL 6.4-8.2 [facility] Sodium [Moles/Vol] 137 mmol/L 136-145 [facility] Triglyceride [Mass/Vol] 127 mg/dL <199 [facility] Comment on above: The drugs N-Acetylcy steine and Metamizole may falsely depress this assay.Serum Triglycerides Reference Interval Normal <150 mg/dL Borderline high 150 - 199 mg/dL High 200 - 499 mg/dL Very High > or = 500 mg/dL Laboratory - Chemistry and C hemistry - challengeOrdered By: Shaheen Ocampo on 08-05-2023 ALP [Catalytic activity/Vol] 95 U/L 45-117 [facility] ALT [Catalytic activity/Vol] 34 U/L 13-56 [facility] CO2 [Moles/Vol] 27.0 mmol/L 21.0-32.0 [facility] Globulin (S) [Mass/Vol] 4.4 g/dL 2.2-4.2 [facility] Urea nitrogen/Creatinine [Mass ratio] 26.9 mg/mg 10-20 [facility] No Panel InformationOrdered By: Shaheen Ocampo on 08-05-2023 Estimated GFR (MDRD) Amer 94 mL/min >60 [facility] Comment on above: GFR Calc Estimated GFR (MDRD) Non-Af Amer 78 mL/min >60 [facility] Comment on above: Non- GFR Calc Serum or plasma albumin bambi urement (mass/volume)Ordered By: Shaheen Ocampo on 08-05-2023 Albumin [Mass/Vol] 3.4 g/dL 3.2-5.0 [facility] Serum or plasma albumin/glob ulin mass ratioOrdered By: Shaheen Ocampo on 08-05-2023 Albumin/Globulin [Mass ratio] 0.8 {ratio} 0.9-2.4 [facility] Serum or plasma calcium bambi urement (mass/volume)Ordered By: Shaheen Ocampo on 08-05-2023 Calcium [Mass/Vol] 9.4 mg/dL 8.5-10.1 [facility] Serum or plasma cholesterol in HDL measurement (mass/volume)Ordered By: Shaheen Ocampo on 08-05-2023 Cholesterol in HDL [Mass/Vol] 49 mg/dL >40 [facility] Comment on above: The drugs N-Acetylcy steine and Metamizole may falsely depress this assay. Reference Range HDL <40 mg/dL Low HDL Cholesterol HDL >or= 60 mg/dL High HDL Cholesterol Serum or plasma cholesterol in VLDL measurement (mass/volume)Ordered By: Shaheen Ocampo on 08-05-2023 Cholesterol in VLDL [Mass/Vol] 25 mg/dL 5-40 [facility] Serum or plasma creatinine m easurement (mass/volume)Ordered By: Shaheen Ocampo on 08-05-2023 Creatinine [Mass/Vol] 0.82 mg/dL 0.55-1.02 [facility] Comment on above: The validity of the calculated GFR & GFRAA in patients over 70 years has not been determined. Clinical correlation is essential. Serum or plasma low density lipoprotein (LDL) cholesterol measurement (mass/volume)Ordered By: Shaheen Ocampo on 08-05-2023 Cholesterol in LDL [Mass/Vol] 102 mg/dL 0-130 [facility] Serum or plasma urea nitroge n measurement (mass/volume)Ordered By: Shaheen Ocampo on 08-05-2023 Urea nitrogen [Mass/Vol] 22 mg/dL 7-18 [facility] Thin prep Papanicolaou smear with manual screeningOrdered By: Shaheen Ocampo on 08-05-2023 Thin prep Papanicolaou smear with manual screening 23 U/L 15-37 [facility] Thin prep Papanicolaou smear with manual screening 6 5-15 [facility] Whole blood hemoglobin A1c/t otal hemoglobin ratio (mass fraction)Ordered By: Shaheen Ocampo on 08-05-2023 HbA1c (Bld) [Mass fraction] 5.3 % 3.8-5.6 [facility] Comment on above: Normal < 5.7 % Predi abetic 5.7 - 6.4 % Diabetic >or= 6.5 % Please note range changes. Basophil percentageOrdered B y: Dr. Ocampo on 03-04-2023 Chloride [Moles/Vol] 105 mmol/L 98-107 [facility] Cholesterol [Mass/Vol] 202 mg/dL <200 [facility] Comment on above: <200 mg/dL Desirable 200-240 mg/dL Borderline >240 mg/dL High Risk Glucose [Mass/Vol] 123 mg/dL 74-106 [facility] Comment on above: Fasting Glucose resu lt from 100 to 125 mg/dL suggests IMPAIRED HOMEOSTASIS per A.D.A. criteria. Potassium [Moles/Vol] 3.7 mmol/L 3.5-5.1 [facility] Sodium [Moles/Vol] 136 mmol/L 136-145 [facility] Triglyceride [Mass/Vol] 194 mg/dL <199 [facility] Comment on above: The drugs N-Acetylcy steine and Metamizole may falsely depress this assay.Serum Triglycerides Reference Interval Normal <150 mg/dL Borderline high 150 - 199 mg/dL High 200 - 499 mg/dL Very High > or = 500 mg/dL Laboratory - Chemistry and C hemistry - challengeOrdered By: Dr. Ocampo on 03-04-2023 CO2 [Moles/Vol] 27.0 mmol/L 21.0-32.0 [facility] Urea nitrogen/Creatinine [Mass ratio] 18.5 mg/mg 10-20 [facility] No Panel InformationOrdered By: Dr. Ocampo on 03-04-2023 Estimated GFR (MDRD) Amer 96 mL/min >60 [facility] Comment on above: GFR Calc Estimated GFR (MDRD) Non-Af Amer 79 mL/min >60 [facility] Comment on above: Non- GFR Calc Urine Microalbumin/Creatin ine Ratio 8.4 mg/g CRE <30 [facility] Serum or plasma calcium bambi urement (mass/volume)Ordered By: Dr. Ocampo on 03-04-2023 Calcium [Mass/Vol] 9.2 mg/dL 8.5-10.1 [facility] Serum or plasma cholesterol in HDL measurement (mass/volume)Ordered By: Dr. Ocampo on 03-04-2023 Cholesterol in HDL [Mass/Vol] 46 mg/dL >40 [facility] Comment on above: The drugs N-Acetylcy steine and Metamizole may falsely depress this assay. Reference Range HDL <40 mg/dL Low HDL Cholesterol HDL >or= 60 mg/dL High HDL Cholesterol Serum or plasma cholesterol in VLDL measurement (mass/volume)Ordered By: Dr. Ocampo on 03-04-2023 Cholesterol in VLDL [Mass/Vol] 39 mg/dL 5-40 [facility] Serum or plasma creatinine m easurement (mass/volume)Ordered By: Dr. Ocampo on 03-04-2023 Creatinine [Mass/Vol] 0.81 mg/dL 0.55-1.02 [facility] Comment on above: The validity of the calculated GFR & GFRAA in patients over 70 years has not been determined. Clinical correlation is essential. Serum or plasma low density lipoprotein (LDL) cholesterol measurement (mass/volume)Ordered By: Dr. Ocampo on 03-04-2023 Cholesterol in LDL [Mass/Vol] 117 mg/dL 0-130 [facility] Serum or plasma urea nitroge n measurement (mass/volume)Ordered By: Dr. Ocampo on 03-04-2023 Urea nitrogen [Mass/Vol] 15 mg/dL 7-18 [facility] Thin prep Papanicolaou smear with manual screeningOrdered By: Dr. Ocampo on 03-04-2023 Thin prep Papanicolaou smear with manual screening 4 5-15 [facility] Thin prep Papanicolaou smear with manual screening 10.4 mg/L NO RANGE EST. [facility] Urine creatinine measurement (mass/volume)Ordered By: Dr. Ocampo on 03-04-2023 Creatinine (U) [Mass/Vol] 124.00 mg/dL NO RANGE EST. [facility] - Drug toxicology Ordered By: Dr. Bundy on 01-08-2023 Amphetamines Ql (U) Negative <1000 ng/mL [facility] Benzodiazepines Ql (U) Negative < 200 ng/mL [facility] Cannabinoids Screen Ql (U) Negative < 50 ng/mL [facility] Cocaine Ql (U) Negative < 300 ng/mL [facility] Opiates Ql (U) Negative < 300 ng/mL [facility] No Panel InformationOrdered By: Dr. Bundy on 01-08-2023 MDMA (Ecstasy) Screen Positive < 500 ng/mL [facility] Miscellaneous Test See comment [facility] Comment on above: TEST RESULTS LIMITST ramadol Tramadol Positive Asncgi=[id number] Tramadol Conf, [place], [place] 5980 ng/mL [id number] TESTING PERFORMED AT [facility]. ORIGINAL REPORT ON FILE IN LAB CONTAINS ADDITIONAL TEST SITE INFORMATION. ____ Urine Barbiturates Screen Negative < 200 ng/mL [facility] Urine Drug Screen Comment [facility] Comment on above: CONFIRMATORY TESTING FOR ALL POSITIVE URINE DRUG SCREENRESULTS WILL ONLY BE SENT OUT UPON PHYSICIAN ORDER. VISTA Urine Drug Screen methods provide only preliminaryanalytical test results. A more specific alternate chemicalmethod must be used in order to obtain a confirmedanalytical result. Gas chromatography/mass spectrometery(GC/MS) is the preferred confirmatory method. Clinicalconsideration and professional judgement should be appliedto any drug of abuse test result, particularly whenpreliminary positive results are used. URINE TCA TESTING MUST BE ORDERED SEPARATELY. USE TESTMNEMONIC: [facility] Urine Methadone Screen Negative < 300 ng/mL [facility] Urine phencyclidine (PCP) de tectionOrdered By: Dr. Bundy on 01-08-2023 Phencyclidine Ql (U) Negative < 25 ng/mL [facility] Basophil percentageon 2021 Chloride [Moles/Vol] 103 mmol/L 98-107 [facility] Work Phone: Cholesterol [Mass/Vol] 166 mg/dL <200 [facility] Work Phone: Comment on above: <200 mg/dL Desirable 200-240 mg/dL Borderline >240 mg/dL High Risk Glucose [Mass/Vol] 107 mg/dL 74-106 [facility] Work Phone: Comment on above: Fasting Glucose resu lt from 100 to 125 mg/dL suggests IMPAIRED HOMEOSTASIS per A.D.A. criteria. Potassium [Moles/Vol] 4.3 mmol/L 3.5-5.1 [facility] Work Phone: Sodium [Moles/Vol] 139 mmol/L 136-145 [facility] Work Phone: Triglyceride [Mass/Vol] 254 mg/dL <199 [facility] Work Phone: Comment on above: The drugs N-Acetylcy steine and Metamizole may falsely depress this assay.Serum Triglycerides Reference Interval Normal <150 mg/dL Borderline high 150 - 199 mg/dL High 200 - 499 mg/dL Very High > or = 500 mg/dL Laboratory - Chemistry and C hemistry - challengeon 07-31-2022 CO2 [Moles/Vol] 29.0 mmol/L 21.0-32.0 [facility] Work Phone: Urea nitrogen/Creatinine [Mass ratio] 20.9 mg/mg 10-20 [facility] Work Phone: No Panel Informationon 07-31 Estimated GFR (MDRD) Amer 103 mL/min >60 [facility] Work Phone: Comment on above: GFR Calc Estimated GFR (MDRD) Non-Af Amer 85 mL/min >60 [facility] Work Phone: Comment on above: Non- GFR Calc Serum or plasma calcium bambi urement (mass/volume)on 07-31-2022 Calcium [Mass/Vol] 8.8 mg/dL 8.5-10.1 [facility] Work Phone: Serum or plasma cholesterol in HDL measurement (mass/volume)on 07-31-2022 Cholesterol in HDL [Mass/Vol] 41 mg/dL >40 [facility] Work Phone: Comment on above: The drugs N-Acetylcy steine and Metamizole may falsely depress this assay. Reference Range HDL <40 mg/dL Low HDL Cholesterol HDL >or= 60 mg/dL High HDL Cholesterol Serum or plasma cholesterol in VLDL measurement (mass/volume)on 07-31-2022 Cholesterol in VLDL [Mass/Vol] 51 mg/dL 5-40 [facility] Work Phone: Serum or plasma creatinine m easurement (mass/volume)on 09-06-2022 Creatinine [Mass/Vol] 0.76 mg/dL 0.55-1.02 [facility] Work Phone: Comment on above: The validity of the calculated GFR & GFRAA in patients over 70 years has not been determined. Clinical correlation is essential. Serum or plasma low density lipoprotein (LDL) cholesterol measurement (mass/volume)on 07-31-2022 Cholesterol in LDL [Mass/Vol] 74 mg/dL 0-130 [facility] Work Phone: Serum or plasma urea nitroge n measurement (mass/volume)on 07-31-2022 Urea nitrogen [Mass/Vol] 16 mg/dL 7-18 [facility] Work Phone: Thin prep Papanicolaou smear with manual screeningon 07-31-2022 Thin prep Papanicolaou smear with manual screening 7 5-15 [facility] Work Phone: Laboratory - Drug toxicology on 03-21-2022 Amphetamines Ql (U) Negative <1000 ng/mL [facility] Work Phone: Benzodiazepines Ql (U) Negative < 200 ng/mL [facility] Work Phone: Cannabinoids Screen Ql (U) Negative < 50 ng/mL [facility] Work Phone: Cocaine Ql (U) Negative < 300 ng/mL [facility] Work Phone: Opiates Ql (U) Negative < 300 ng/mL [facility] Work Phone: No Panel Informationon 03-21 MDMA (Ecstasy) Screen Positive < 500 ng/mL [facility] Work Phone: Miscellaneous Test See comment [facility] Work Phone: Comment on above: [id number] 6+OXYCODONE-B UND (ng/mL) DRUG RESULT SCREEN CUTOFF____ Amphetamines,Urine Negative ng/mL 1000 Amphetamine test includes Amphetamine and Methamphetamine.Barbiturates Negative ng/mL 200Benzodiazepines Negative ng/mL 200Cannabinoid Negative ng/mL 20Cocaine (Metab) Negative ng/mL 300Opiates Negative ng/mL 300 Opiates test includes Codeine, Morphine, Hydromorphone, Hydrocodone. Oxycodone/Oxymorphone,Urine Negative ng/mL 300 Test includes Oxydodone and Oxymorphone. ____ TESTING PERFORMED AT [facility]. ORIGINAL REPORT ON FILE IN LAB CONTAINS ADDITIONAL TEST SITE INFORMATION. ____ Urine Barbiturates Screen Negative < 200 ng/mL [facility] Work Phone: Urine Drug Screen Comment [facility] Work Phone: Comment on above: CONFIRMATORY TESTING FOR ALL POSITIVE URINE DRUG SCREENRESULTS WILL ONLY BE SENT OUT UPON PHYSICIAN ORDER. VISTA Urine Drug Screen methods provide only preliminaryanalytical test results. A more specific alternate chemicalmethod must be used in order to obtain a confirmedanalytical result. Gas chromatography/mass spectrometery(GC/MS) is the preferred confirmatory method. Clinicalconsideration and professional judgement should be appliedto any drug of abuse test result, particularly whenpreliminary positive results are used. URINE TCA TESTING MUST BE ORDERED SEPARATELY. USE TESTMNEMONIC: [facility] Urine Methadone Screen Negative < 300 ng/mL [facility] Work Phone: Urine phencyclidine (PCP) de tectionon 03-21-2022 Phencyclidine Ql (U) Negative < 25 ng/mL [facility] Work Phone: Basophil percentageon 2020 Chloride [Moles/Vol] 104 mmol/L 98-107 [facility] Work Phone: Cholesterol [Mass/Vol] 198 mg/dL <200 [facility] Work Phone: Comment on above: <200 mg/dL Desirable 200-240 mg/dL Borderline >240 mg/dL High Risk Glucose [Mass/Vol] 99 mg/dL 74-106 [facility] Work Phone: Comment on above: Please note revised GLUCOSE reference range effective 2017. Potassium [Moles/Vol] 4.3 mmol/L 3.5-5.1 [facility] Work Phone: Sodium [Moles/Vol] 141 mmol/L 136-145 [facility] Work Phone: Triglyceride [Mass/Vol] 166 mg/dL [facility] Work Phone: Comment on above: The drugs N-Acetylcy steine and Metamizole may falsely depress this assay.Serum Triglycerides Reference Interval Normal <150 mg/dL Borderline high 150 - 199 mg/dL High 200 - 499 mg/dL Very High > or = 500 mg/dL Laboratory - Chemistry and C hemistry - challengeon 11-15-2021 CO2 [Moles/Vol] 31.0 mmol/L 21.0-32.0 [facility] Work Phone: Urea nitrogen/Creatinine [Mass ratio] 23.4 mg/mg 10-20 [facility] Work Phone: No Panel Informationon 11-15 Estimated GFR (MDRD) Amer 96 mL/min >60 [facility] Work Phone: Comment on above: GFR Calc Estimated GFR (MDRD) Non-Af Amer 79 mL/min >60 [facility] Work Phone: Comment on above: Non- GFR Calc Serum or plasma calcium bambi urement (mass/volume)on 11-15-2021 Calcium [Mass/Vol] 9.1 mg/dL 8.5-10.1 [facility] Work Phone: Serum or plasma cholesterol in HDL measurement (mass/volume)on 11-15-2021 Cholesterol in HDL [Mass/Vol] 46 mg/dL [facility] Work Phone: Comment on above: The drugs N-Acetylcy steine and Metamizole may falsely depress this assay. Reference Range HDL <40 mg/dL Low HDL Cholesterol HDL >or= 60 mg/dL High HDL Cholesterol Serum or plasma cholesterol in VLDL measurement (mass/volume)on 11-15-2021 Cholesterol in VLDL [Mass/Vol] 33 mg/dL 5-40 [facility] Work Phone: Serum or plasma creatinine m easurement (mass/volume)on 11-15-2021 Creatinine [Mass/Vol] 0.81 mg/dL 0.55-1.02 [facility] Work Phone: Comment on above: The validity of the calculated GFR & GFRAA in patients over 70 years has not been determined. Clinical correlation is essential. Serum or plasma low density lipoprotein (LDL) cholesterol measurement (mass/volume)on 11-15-2021 Cholesterol in LDL [Mass/Vol] 119 mg/dL 0-130 [facility] Work Phone: Serum or plasma urea nitroge n measurement (mass/volume)on 11-15-2021 Urea nitrogen [Mass/Vol] 19 mg/dL 7-18 [facility] Work Phone: Thin prep Papanicolaou smear with manual screeningon 11-15-2021 Thin prep Papanicolaou smear with manual screening 6 5-15 [facility] Work Phone: Office Visit: Diabetes Visit on 10-21-2017 Documentation of current medications (procedure) Done Invalid Interpretation Code [facility] Work Phone: Lab Report: Comprehensive Hi tabolic Profilon 08-27-2017 Alanine aminotransferase (ALT) 19 U/L Invalid Interpretation Code 12-78 [facility] Work Phone: Albumin 3.4 g/dL Invalid Interpretation Code 3.4-5.0 [facility] Work Phone: Albumin/Globulin Ratio 0.8 {ratio} Low 0.9-2.4 [facility] Work Phone: Alkaline phosphatase (ALP) 85 U/L Invalid Interpretation Code 45-117 [facility] Work Phone: Anion gap 6 mmol/L Invalid Interpretation Code 5-15 [facility] Work Phone: Aspartate aminotransferase (AST) 13 U/L Low 15-37 [facility] Work Phone: Bilirubin (total) 0.20 mg/dL Invalid Interpretation Code 0.20-1.00 [facility] Work Phone: BUN/Creatinine Ratio 20.6 RATIO High 10-20 [facility] Work Phone: Calcium 8.9 mg/dL Invalid Interpretation Code 8.5-10.1 [facility] Work Phone: Chloride 105 mmol/L Invalid Interpretation Code 98-107 [facility] Work Phone: CO2 29.0 mmol/L Invalid Interpretation Code 21.0-32.0 [facility] Work Phone: Creatinine 0.78 mg/dL Invalid Interpretation Code 0.55-1.02 [facility] Work Phone: eGFR (non-black) 103 mL/min/{1.73_m2} Invalid Interpretation Code >60 [facility] Work Phone: eGFR (non-black) 85 mL/min/{1.73_m2} Invalid Interpretation Code >60 [facility] Work Phone: Globulin 4.4 g/dL High 2.3-3.5 [facility] Work Phone: Glucose mass conc 103 mg/dL Invalid Interpretation Code 70-110 [facility] Work Phone: Potassium molar conc 4.3 mmol/L Invalid Interpretation Code 3.5-5.1 [facility] Work Phone: Protein 7.8 g/dL Invalid Interpretation Code 6.4-8.2 [facility] Work Phone: Sodium 140 mmol/L Invalid Interpretation Code 136-145 [facility] Work Phone: Urea nitrogen 16 mg/dL Invalid Interpretation Code 7-18 [facility] Work Phone: Lab Report: Hemoglobin A1con 08-27-2017 Hemoglobin A1c/Hemoglobin.total mass fraction (Bld) 4.8 % Invalid Interpretation Code 4.2-6.3 [facility] Work Phone: Lab Report: Lipid Profileon 08-27-2017 Cholesterol 158 mg/dL Invalid Interpretation Code 200 [employer] Work Phone: HDL Cholesterol 44 mg/dL Invalid Interpretation Code [facility] Work Phone: LDL Cholesterol 90 mg/dL Invalid Interpretation Code 0-130 [facility] Work Phone: Triglyceride 119 mg/dL Invalid Interpretation Code [facility] Work Phone: very low density lipoproteins 24 mg/dL Invalid Interpretation Code 5-40 [facility] Work Phone: Office Visiton 07-16-2017 Documentation of current medications (procedure) Done Invalid Interpretation Code [facility] Work Phone: Office Visit: Diabetes follo w upon 04-15-2017 Dietary management education, guidance, and counseling (procedure) yes Invalid Interpretation Code [facility] Work Phone: Documentation of current medications (procedure) Done Invalid Interpretation Code [facility] Work Phone: Fall risk assessment Fall risk assessment Invali d Interpretation Code [employer] Work Phone: Tobacco smoking status NHIS Never Invalid Interpretation Code [facility] Work Phone: Tobacco use CPHS Never smoker Invalid Interpretation Code [facility] Work Phone: Lab Report: Hemoglobin A1con 01-16-2017 HbA1c 5.8 % Invalid Interpretation Code 4.2-6.3 [facility] Work Phone: Lab Report: Microalb:Creat R atio,Random URon 01-16-2017 ACR (microalbumin/creati nine) ratio 20.2 MG/G CRE Invalid Interpretation Code <30 mg/g CRE [facility] Work Phone: Urine, creatinine 70.80 mg/dL Invalid Interpretation Code NO RANGE EST. [facility] Work Phone: Urine, microalbumin 1.43 mg/dL Invalid Interpretation Code Units converted. See lab report for original value. [employer] Work Phone: Office Visit: 2 Month follow upon 01-16-2017 Adolescent depression screening assessment Adolescent depression screening assessment Invalid Interpretation Code [facility] Work Phone: Adult depression screening assessment Adult depression screening assessment Invalid Interpretation Code [facility] Work Phone: Chart Maintenanceon 11-14-20 16 Cholesterol 187 mg/dL Invalid Interpretation Code [facility] Work Phone: eGFR (non-black) 79 mL/min/{1.73_m2} Invalid Interpretation Code [facility] Work Phone: HDL Cholesterol 52 mg/dL Invalid Interpretation Code [facility] Work Phone: LDL Cholesterol 106 mg/dL Invalid Interpretation Code [facility] Work Phone: Triglyceride 147 mg/dL Invalid Interpretation Code [facility] Work Phone: Vital Signs Date Time Vital Sign Value Performing Clinician Facility 09-08-2025 11:15-0400 Body weight 132.[address] Shaheen Ocampo MD Work Phone: [facility] 08-18-2025 08:28-0400 Body height 154.[address] Shaheen Ocampo MD Work Phone: [facility] 08-18-2025 08:28-0400 Body weight 135.[address] Shaheen Ocampo MD Work Phone: [facility] 07-21-2025 10:00-0400 Body weight 133.[address] Shaheen Ocampo MD Work Phone: [facility] 06-10-2025 09:30-0400 Body height 154.[address] Shaheen Ocampo MD Work Phone: [facility] 06-10-2025 09:30-0400 Body weight 136.[address] Shaheen Ocampo MD Work Phone: [facility] 05-12-2025 08:15-0400 Body height 154.[address] Shaheen Ocampo MD Work Phone: [facility] 05-12-2025 08:15-0400 Body weight 139.[address] Shaheen Ocampo MD Work Phone: 4(112)012-884991 [place] [address] 04-07-2025 11:11-0400 Body height 154.[address] Shaheen Ocampo MD Work Phone: 1(701)146-955242 [place] [address] 04-07-2025 11:11-0400 Body weight 140.[address] Shaheen Ocampo MD Work Phone: 0(320)869-868442 [place] [address] 03-24-2025 09:56-0400 Body weight 138.[address] Shaheen Ocampo MD Work Phone: 4(245)571-160842 [place] [address] 02-10-2025 13:45-0400 Body height 154.[address] Shaheen Ocampo MD Work Phone: 5(396)522-130342 [place] [address] 02-10-2025 13:45-0400 Body weight 141.[address] Shaheen Ocampo MD Work Phone: 6(393)197-335942 [place] [address] 01-14-2025 12:00-0500 Body weight 137.[address] Shaheen Ocampo MD Work Phone: 4(196)488-190342 [place] [address] 12-21-2024 10:00-0500 Body weight 138.[address] Shaheen Ocampo MD Work Phone: 3(967)363-869842 [place] [address] 02-24-2024 10:30-0400 Body height 154.[address] Shaheen Ocampo Work Phone: 3(479)535-859142 [place] [address] 02-24-2024 10:30-0400 Body weight 130.[address] Shaheen Ocampo Work Phone: 5(009)418-352642 [place] [address] 02-24-2024 00:16-0400 Body mass index (BMI) [Ratio] 60.3 kg/m2 Dr. Shaheen Ocampo Work Phone: 1(485)104-483142 [place] [address] 02-03-2024 11:00-0400 Body height 154.[address] Shaheen Ocampo Work Phone: 0(316)318-403442 [place] [address] 02-03-2024 11:00-0400 Body weight 128.[address] Shaheen Ocampo Work Phone: 0(994)650-249842 [place] [address] 01-24-2024 00:14-0500 Body mass index (BMI) [Ratio] 60.3 kg/m2 Dr. Shaheen Ocampo Work Phone: [facility] 01-24-2024 00:14-0500 Body weight 126.[address] Shaheen Ocampo Work Phone: [facility] 01-16-2024 09:00-0500 Body height 160.[address] Shaheen Ocampo Work Phone: 5(164)883-475591 [place] [address] 01-16-2024 09:00-0500 Body weight 128.[address] Shaheen Ocamop Work Phone: 3(467)146-152391 [place] [address] 01-01-2024 14:29-0500 Body height 160.[address] Shaheen Ocampo Work Phone: 4(377)414-050091 [place] [address] 01-01-2024 14:29-0500 Body weight 126.[address] Shaheen Ocampo Work Phone: 7(778)188-991691 [place] [address] 12-26-2023 00:37-0500 Body mass index (BMI) [Ratio] 60.3 kg/m2 Dr. Shaheen Ocampo Work Phone: [facility] 12-17-2023 11:11-0500 Body temperature 97.5 [degF] Dr. Shaheen Ocampo Work Phone: 0(644)339-916260 [address] 12-17-2023 11:11-0500 Diastolic blood pressure 76 mm[Hg] Dr. Shaheen Ocampo Work Phone: 4(240)300-574591 [place] [address] 12-17-2023 11:11-0500 Heart rate 107 /min Dr. Shaheen Ocampo Work Phone: [facility] 12-17-2023 11:11-0500 Respiratory rate 18 /min Dr. Shaheen Ocampo Work Phone: 8(855)533-567060 [address] 12-17-2023 11:11-0500 SaO2% (BldA) [Mass fraction] 93 % Dr. Shaheen Ocampo Work Phone: [facility] 12-17-2023 11:11-0500 Systolic blood pressure 127 mm[Hg] Dr. Shaheen Ocampo Work Phone: 9(580)950-663191 [place] [address] 12-17-2023 09:28-0500 Body height 160.[address] Shaheen Ocampo Work Phone: [facility] 12-17-2023 09:28-0500 Body mass index (BMI) [Ratio] 49 kg/m2 Dr. Shaheen Ocampo Work Phone: [facility] 12-17-2023 09:28-0500 Body weight 125.[address] Shaheen Ocampo Work Phone: 6(943)507-974360 [address] 11-26-2023 10:00-0500 Body weight 122.[address] Shaheen Ocampo Work Phone: 9(344)272-300760 [address] 11-20-2023 10:47-0500 Body mass index (BMI) [Ratio] 46.5 kg/m2 Dr. Shaheen Ocampo Work Phone: 5(303)444-101360 [address] 11-20-2023 10:47-0500 Body temperature 98.2 [degF] Dr. Shaheen Ocampo Work Phone: [facility] 11-20-2023 10:47-0500 Body weight 119.[address] Shaheen Ocampo Work Phone: [facility] 11-20-2023 10:47-0500 Heart rate 89 /min Dr. Shaheen Ocampo Work Phone: [facility] 11-20-2023 10:47-0500 Respiratory rate 16 /min Dr. Shaheen Ocampo Work Phone: [facility] 11-20-2023 10:47-0500 SaO2% (BldA) [Mass fraction] 98 % Dr. Shaheen Ocampo Work Phone: [facility] 10-29-2023 14:59-0500 Body temperature 98 [degF] Dr. Shaheen Ocampo Work Phone: [facility] 10-29-2023 14:59-0500 Diastolic blood pressure 78 mm[Hg] Dr. Shaheen Ocampo Work Phone: [facility] 10-29-2023 14:59-0500 Heart rate 91 /min Dr. Shaheen Ocampo Work Phone: [facility] 10-29-2023 14:59-0500 Respiratory rate 18 /min Dr. Shaheen Ocampo Work Phone: 0(731)238-923260 [address] 10-29-2023 14:59-0500 SaO2% (BldA) [Mass fraction] 96 % Dr. Shaheen Ocampo Work Phone: 9(085)874-860391 [place] [address] 10-29-2023 14:59-0500 Systolic blood pressure 112 mm[Hg] Dr. Shaheen Ocampo Work Phone: 1(532)297-384360 [address] 10-29-2023 13:07-0500 Body height 160.[address] Shaheen Ocampo Work Phone: 1(856)749-163542 [place] [address] 10-29-2023 13:07-0500 Body mass index (BMI) [Ratio] 46.4 kg/m2 Dr. Shaheen Ocampo Work Phone: 2(780)011-836060 [address] 10-29-2023 13:07-0500 Body weight [address] Shaheen Ocampo Work Phone: 0(035)285-710042 [place] [address] 10-25-2023 00:06-0500 Body mass index (BMI) [Ratio] 60.3 kg/m2 Dr. Shaheen Ocampo Work Phone: 9(786)852-591991 [place] [address] 10-16-2023 09:15-0500 Body height 160.[address] Shaheen Ocampo Work Phone: 2(540)059-450960 [address] 10-16-2023 09:15-0500 Body weight 118.[address] Shaheen Ocampo Work Phone: 5(745)363-508760 [address] 08-25-2023 00:13-0400 Body mass index (BMI) [Ratio] 60.3 kg/m2 Dr. Shaheen Ocampo Work Phone: 7(277)293-611360 [address] 08-22-2023 09:00-0400 Body height 160.[address] Shaheen Ocampo Work Phone: 9(329)391-395560 [address] 08-22-2023 09:00-0400 Body weight 122.[address] Shaheen Ocampo Work Phone: [facility] 08-21-2023 10:23-0400 Body mass index (BMI) [Ratio] 47.5 kg/m2 Dr. Shaheen Ocampo Work Phone: [facility] 08-21-2023 10:23-0400 Body weight 121.[address] Shaheen Ocampo Work Phone: [facility] 07-26-2023 00:11-0400 Body mass index (BMI) [Ratio] 60.3 kg/m2 [facility] 07-26-2023 00:11-0400 Body weight 123.74 kg [facility] 07-17-2023 09:30-0400 Body height 157.48 cm [facility] 07-17-2023 09:30-0400 Body weight 123.74 kg [facility] 06-25-2023 00:16-0400 Body mass index (BMI) [Ratio] 60.3 kg/m2 [facility] 06-19-2023 10:00-0400 Body weight 128.63 kg [facility] 06-06-2023 11:08-0400 Body height 157.48 cm [facility] 06-06-2023 11:08-0400 Body weight 131.08 kg [facility] 05-25-2023 00:55-0400 Body mass index (BMI) [Ratio] 60.3 kg/m2 [facility] 05-23-2023 10:57-0400 Body height 157.48 cm [facility] 05-23-2023 10:57-0400 Body weight 134.08 kg [facility] 04-25-2023 00:24-0400 Body mass index (BMI) [Ratio] 60.3 kg/m2 [facility] 04-24-2023 10:00-0400 Body weight 138.25 kg [facility] 04-02-2023 12:17-0400 Body height 157.[address] Shaheen Ocampo Work Phone: [facility] 04-02-2023 12:17-0400 Body weight 144.[address] Shaheen Ocampo Work Phone: [facility] 03-25-2023 00:25-0400 Body mass index (BMI) [Ratio] 60.3 kg/m2 Dr. Shaheen Ocampo Work Phone: [facility] 03-04-2023 12:25-0400 Body height 157.[address] Shaheen Ocampo Work Phone: 4(591)223-725491 [place] [address] 03-04-2023 12:25-0400 Body weight 140.[address] Shaheen Ocampo Work Phone: [facility] 02-23-2023 01:18-0400 Body mass index (BMI) [Ratio] 60.3 kg/m2 Dr. Shaheen Ocampo Work Phone: 4(887)399-141591 [place] [address] 02-18-2023 13:26-0400 Body height 157.[address] Shaheen Ocampo Work Phone: 2(146)640-585191 [place] [address] 02-18-2023 13:26-0400 Body weight 141.[address] Shaheen Ocampo Work Phone: [facility] 01-23-2023 00:15-0500 Body mass index (BMI) [Ratio] 60.3 kg/m2 Dr. Shaheen Ocampo Work Phone: 4(175)774-045991 [place] [address] 01-21-2023 14:25-0500 Body weight 138.[address] Shaheen Ocampo Work Phone: 5(639)570-661391 [place] [address] 01-15-2023 15:19-0500 Body height 157.[address] Shaheen Ocampo Work Phone: [facility] 01-15-2023 15:19-0500 Body mass index (BMI) [Ratio] 55.2 kg/m2 Dr. Shaheen Ocampo Work Phone: 6(888)696-727291 [place] [address] 01-15-2023 15:19-0500 Body temperature 97.8 [degF] Dr. Shaheen Ocampo Work Phone: [facility] 01-15-2023 15:19-0500 Body weight 136.[address] Shaheen Ocampo Work Phone: [facility] 01-15-2023 15:19-0500 Diastolic blood pressure 84 mm[Hg] Dr. Shaheen Ocampo Work Phone: [facility] 01-15-2023 15:19-0500 Heart rate 105 /min Dr. Shaheen Ocampo Work Phone: [facility] 01-15-2023 15:19-0500 Respiratory rate 16 /min Dr. Shaheen Ocampo Work Phone: [facility] 01-15-2023 15:19-0500 SaO2% (BldA) [Mass fraction] 99 % Dr. Shaheen Ocampo Work Phone: [facility] 01-15-2023 15:19-0500 Systolic blood pressure 144 mm[Hg] Dr. Shaheen Ocampo Work Phone: [facility] 01-02-2023 10:00-0500 Body weight 136.[address] Shaheen Ocampo Work Phone: [facility] 12-26-2022 00:21-0500 Body mass index (BMI) [Ratio] 60.3 kg/m2 Dr. Shaheen Ocampo Work Phone: [facility] 12-03-2022 16:50-0500 Body height 154.94 cm [facility] 12-03-2022 16:50-0500 Body weight 136.44 kg [facility] 11-25-2022 00:09-0500 Body mass index (BMI) [Ratio] 60.3 kg/m2 [facility] 11-01-2022 16:40-0500 Body height 154.94 cm [facility] Work Phone: 11-01-2022 16:40-0500 Body weight 136.98 kg [facility] 10-25-2022 00:06-0500 Body mass index (BMI) [Ratio] 60.3 kg/m2 [facility] 10-15-2022 15:53-0500 Body height 154.94 cm [facility] Work Phone: 10-15-2022 15:53-0500 Body weight 136.44 kg [facility] 08-25-2022 00:21-0400 Body mass index (BMI) [Ratio] 60.3 kg/m2 [facility] 08-16-2022 16:20-0400 Body height 154.94 cm [facility] Work Phone: 08-16-2022 16:20-0400 Body weight 137.61 kg [facility] Work Phone: 07-31-2022 12:23-0400 Body height 154.94 cm [facility] Work Phone: 07-31-2022 12:23-0400 Body weight 138.34 kg [facility] Work Phone: 06-25-2022 00:21-0400 Body mass index (BMI) [Ratio] 60.3 kg/m2 [facility] Work Phone: 06-19-2022 14:09-0400 Body height 154.94 cm [facility] Work Phone: 06-19-2022 14:09-0400 Body weight 132.9 kg [facility] Work Phone: 05-25-2022 00:25-0400 Body mass index (BMI) [Ratio] 60.3 kg/m2 [facility] Work Phone: 05-17-2022 12:47-0400 Body height 154.94 cm [facility] Work Phone: 05-17-2022 12:47-0400 Body weight 134.17 kg [facility] Work Phone: 04-25-2022 00:39-0400 Body mass index (BMI) [Ratio] 60.3 kg/m2 [facility] Work Phone: 03-27-2022 13:51-0400 Body height 154.94 cm [facility] Work Phone: 03-27-2022 13:51-0400 Body weight 134.08 kg [facility] Work Phone: 03-25-2022 00:24-0400 Body mass index (BMI) [Ratio] 60.3 kg/m2 [facility] Work Phone: 03-05-2022 12:16-0400 Body weight 134.44 kg [facility] Work Phone: 02-23-2022 00:25-0400 Body mass index (BMI) [Ratio] 60.3 kg/m2 [facility] Work Phone: 02-05-2022 12:19-0400 Body weight 130.72 kg [facility] Work Phone: 01-23-2022 00:24-0500 Body mass index (BMI) [Ratio] 60.3 kg/m2 [facility] Work Phone: 01-22-2022 23:24-0500 Body mass index (BMI) [Ratio] 60.3 kg/m2 [facility] Work Phone: 01-22-2022 15:38-0500 Body weight 127.91 kg [facility] Work Phone: 01-07-2022 17:31-0500 Diastolic blood pressure 79 mm[Hg] [facility] Work Phone: 01-07-2022 17:31-0500 Heart rate 84 /min [facility] Work Phone: 01-07-2022 17:31-0500 Respiratory rate 18 /min [facility] Work Phone: 01-07-2022 17:31-0500 SaO2% (BldA) [Mass fraction] 95 % [facility] Work Phone: 01-07-2022 17:31-0500 Systolic blood pressure 152 mm[Hg] [facility] Work Phone: 01-07-2022 14:49-0500 Body height 157.48 cm [facility] Work Phone: 01-07-2022 14:49-0500 Body mass index (BMI) [Ratio] 51.9 kg/m2 [facility] Work Phone: 01-07-2022 14:49-0500 Body temperature 98.1 [degF] [facility] Work Phone: 01-07-2022 14:49-0500 Body weight 128.82 kg [facility] Work Phone: 12-25-2021 23:23-0500 Body mass index (BMI) [Ratio] 60.3 kg/m2 [facility] Work Phone: 12-19-2021 12:33-0500 Body weight 128.82 kg [facility] Work Phone: 11-24-2021 23:19-0500 Body mass index (BMI) [Ratio] 60.3 kg/m2 [facility] Work Phone: 11-13-2021 11:49-0500 Body weight 127.91 kg [facility] Work Phone: 10-24-2021 23:20-0500 Body mass index (BMI) [Ratio] 60.3 kg/m2 [facility] Work Phone: 10-21-2017 13:02-0500 BMI (Body Mass Index) 59.84 kg/m2 Carole Smith LPN [facility] Work Phone: 10-21-2017 13:02-0500 Body Temperature 98.2 [degF] Carole Smith [facility] Work Phone: 10-21-2017 13:02-0500 BP Diastolic 71 mm[Hg] [facility] Work Phone: 10-21-2017 13:02-0500 BP Systolic 119 mm[Hg] Carole Smith LPN [facility] Work Phone: 10-21-2017 13:02-0500 Height 157.48 cm Carole Smith LPN [facility] Work Phone: 10-21-2017 13:02-0500 Pulse (Heart Rate) 107 /min Carole Smith [facility] Work Phone: 10-21-2017 13:02-0500 Respiratory Rate 20 /min Carole Smith [facility] Work Phone: 10-21-2017 13:02-0500 Weight 148.42 kg Carole Smith [facility]PN [facility] Work Phone: 07-16-2017 08:35-0400 BMI (Body Mass Index) 59.4 kg/m2 Carole Smith LPN [facility] Work Phone: 07-16-2017 08:35-0400 Body Temperature 98.3 [degF] Carole Smith [facility] Work Phone: 07-16-2017 08:35-0400 BP Diastolic 73 mm[Hg] Carole Smith [facility] Work Phone: 07-16-2017 08:35-0400 BP Systolic 106 mm[Hg] Carole Smith [facility]PN [facility] Work Phone: 07-16-2017 08:35-0400 Height 157.48 cm Carole Smith [facility] Work Phone: 07-16-2017 08:35-0400 Pulse (Heart Rate) 98 /min Carole Smith [facility] Work Phone: 07-16-2017 08:35-0400 Respiratory Rate 22 /min Carole Smith [facility] Work Phone: 07-16-2017 08:35-0400 Weight 147.33 kg Carole Smith [facility]PN [facility] Work Phone: 04-15-2017 13:30-0400 BMI (Body Mass Index) 60.57 kg/m2 [facility] Work Phone: 04-15-2017 13:30-0400 BP Diastolic 81 mm[Hg] [facility] Work Phone: 04-15-2017 13:30-0400 BP Systolic 128 mm[Hg] [facility] Work Phone: 04-15-2017 13:30-0400 Height 157.48 cm [facility] Work Phone: 04-15-2017 13:30-0400 Pulse (Heart Rate) 92 /min Rafaela Stein [facility] Work Phone: 04-15-2017 13:30-0400 Pulse Oximetry 96 % [facility] Work Phone: 04-15-2017 13:30-0400 Respiratory Rate 16 /min [facility] Work Phone: 04-15-2017 13:30-0400 Weight 150.23 kg [facility] Work Phone: 09-19-2011 14:34-0400 Body Temperature 99 [degF] [facility] Work Phone: Encounters Encounter Date Encounter Type Care Provider Facility Start: 11-03-2025 ambulatory [facility] y:[facility] Start: 10-06-2025 ambulatory Shaheen Ocampo Facility:[facility] Start: 09-22-2025 End: 09-24-2025 ambulatory Shaheen Ocampo Facility:[facility] Start: 08-25-2025 End: 08-25-[address] Shaheen Ocampo MD Work Phone: -Laboratory [facility] Start: 08-25-2025 End: 08-25-[address] Shaheen Ocampo MD -Laboratory [facility] Start: 08-25-2025 End: 08-25-2025 ambulatory Shaheen Ocampo Facility:[facility] Start: 08-18-2025 End: 08-24-[address] Shaheen Ocampo MD Work Phone: -Nutritional Services Start: 08-18-2025 End: 08-24-[address] Shaheen Ocampo MD -Nutritional Servic es Work Phone: Start: 07-21-2025 End: 07-25-[address] Shaheen Ocampo MD -Nutritional Servic es Work Phone: Start: 07-21-2025 End: 07-25-[address] Shaheen Ocampo MD Work Phone: -Nutritional Services Start: 06-10-2025 End: 06-24-[address] Shaheen Ocampo MD Work Phone: -Nutritional Services Start: 06-10-2025 End: 06-24-[address] Shaheen Ocampo MD -Nutritional Servic es Work Phone: Start: 05-12-2025 End: 05-24-[address] Shaheen Ocampo MD Work Phone: -Nutritional Services Start: 05-12-2025 End: 05-24-[address] Shaheen Ocampo MD -Nutritional Servic es Work Phone: Start: 04-07-2025 End: 04-24-[address] Shaheen Ocampo MD -Nutritional Servic es Work Phone: Start: 04-07-2025 End: 04-24-[address] Shaheen Ocampo MD Work Phone: [facility] Work Phone: Start: 03-24-2025 End: 03-24-2025 ambulatory Shaheen Ocampo Facility:[facility] Start: 03-24-2025 End: 03-24-[address] Shaheen Ocampo MD -Nutritional Servic es Work Phone: Start: 02-10-2025 End: 02-22-[address] Shaheen Ocampo MD Work Phone: [facility] Work Phone: Start: 02-10-2025 End: 02-22-[address] Shaheen Ocampo MD -Nutritional Servic es Work Phone: Start: 01-14-2025 End: 01-22-[address] Shaheen Ocampo MD -Nutritional Servic es Work Phone: Start: 01-14-2025 End: 01-22-2025 ambulatory Shaheen Ocampo Facility:[facility] Start: 12-31-2024 End: 12-31-[address] Shaheen Ocampo MD -Outpatient Breast Imaging Work Phone: Start: 12-31-2024 End: 12-31-2024 ambulatory Shaheen Ocampo Facility:[facility] Start: 12-28-2024 End: 12-28-[address] Ifeanyi Jacob DO -[facility] Work Phone: Start: 12-28-2024 End: 12-28-2024 ambulatory Shaheen Ocampo [place] Start: 12-21-2024 End: 12-25-2024 ambulatory Shaheen Ocampo Facility:[facility] Start: 12-21-2024 End: 12-25-[address] Shaheen Ocampo MD -Nutritional Servic es Work Phone: Start: 11-13-2024 End: 11-13-[address] Shaheen Ocampo MD -Laboratory Work Phone: Start: 11-13-2024 End: 11-13-2024 ambulatory Shaheen Ocampo Facility:[facility] Start: 02-24-2024 End: 03-24-[address] Shaheen Ocampo Work Phone: [facility] Work Phone: Start: 02-24-2024 End: 03-24-[address] Shaheen Ocampo Work Phone: [facility]-Nutritional Services Work Phone: Start: 02-03-2024 End: 02-23-[address] Shaheen Ocampo Work Phone: [facility] Work Phone: Start: 02-03-2024 End: 02-23-[address] Shaheen Ocampo Work Phone: [facility]-Nutritional Services Work Phone: Start: 02-03-[address] Shaheen Ocampo Work Phone: [facility]-Nutritional Services Work Phone: Start: 01-29-2024 End: 01-29-[address] Shaheen Ocampo Work Phone: [facility] Work Phone: Start: 01-29-2024 End: 01-29-[address] Shaheen Ocampo Work Phone: [facility] Start: 01-16-2024 End: 01-23-[address] Shaheen Ocampo Work Phone: [facility] Work Phone: Start: 01-16-2024 End: 01-23-[address] Shaheen Ocampo Work Phone: [facility]-Nutritional Services Work Phone: Start: 12-30-2023 End: 12-30-[address] Shaheen Ocampo Work Phone: [facility] Work Phone: Start: 12-17-2023 Non-patient / Non-visit Dr. Nathaniel Ocampo Work Phone: [facility] Start: 12-17-2023 End: 12-17-2023 Admission to same day surgery center Dr. Shaheen Ocampo Work Phone: [facility]-Surgical Day Care Start: 12-17-2023 End: 12-17-[address] Shaheen Ocampo Work Phone: [facility] Work Phone: Start: 11-28-2023 End: 11-28-[address] Shaheen Ocampo Work Phone: [facility] Start: 11-26-2023 End: 12-25-[address] Shaheen Ocampo Work Phone: [facility] Work Phone: Start: 11-26-2023 End: 12-25-[address] Shaheen Ocampo Work Phone: [facility]-Nutritional Services Work Phone: Start: 11-26-[address] Shaheen Ocampo Work Phone: [facility]-Nutritional Services Work Phone: Start: 11-21-2023 End: 11-21-[address] Shaheen Ocampo Work Phone: [facility] Work Phone: Start: 11-20-2023 End: 11-20-[address] Shaheen Ocampo Work Phone: [facility] Work Phone: Start: 11-13-2023 End: 11-13-[address] Shaheen Ocampo Work Phone: [facility] Work Phone: Start: 11-01-2023 End: 11-01-[address] Shaehen Ocampo Work Phone: [facility] Work Phone: Start: 11-01-2023 End: 11-01-[address] Shaheen Ocampo Work Phone: [facility]-Physical Therapy Work Phone: Start: 10-29-2023 Non-patient / Non-visit Dr. Nathaniel Ocampo Work Phone: [facility] Start: 10-29-2023 End: 10-29-2023 Admission to same day surgery center Dr. Shaheen Ocampo Work Phone: [facility]-Surgical Day Care Start: 10-29-2023 End: 10-29-[address] Shaheen Ocampo Work Phone: [facility] Work Phone: Start: 10-28-[address] Shaheen Ocampo Work Phone: [facility]-Physical Therapy Work Phone: Start: 10-23-[address] Shaheen Ocampo Work Phone: [facility]-Physical Therapy Work Phone: Start: 10-16-2023 End: 10-24-[address] Shaheen Ocampo Work Phone: [facility] Work Phone: Start: 10-16-2023 End: 10-24-[address] Shaheen Ocampo Work Phone: [facility]-Nutritional Services Work Phone: Start: 10-07-2023 End: 10-07-[address] Shaheen Ocampo Work Phone: [facility] Work Phone: Start: 09-16-[address] Shaheen Ocampo Work Phone: [facility]-Physical Therapy Work Phone: Start: 09-11-2023 Non-patient / Non-visit Dr. Nathaniel Ocampo Work Phone: [facility] Start: 09-11-2023 End: 09-11-[address] Sahheen Ocampo Work Phone: [facility] Work Phone: Start: 09-11-2023 End: 09-11-[address] Shaheen Ocampo Work Phone: [facility]-Pulmonary Services/Neurology Work Phone: Start: 08-22-2023 End: 08-24-[address] Shaheen Ocampo Work Phone: [facility] Work Phone: Start: 08-22-2023 End: 08-24-[address] Shaheen Ocampo Work Phone: [facility]-Nutritional Services Work Phone: Start: 08-21-2023 End: 08-21-[address] Shaheen Ocampo Work Phone: [facility] Work Phone: Start: 08-07-2023 Registered Recurring [facility]-Nutritional Services Work Phone: Start: 08-07-2023 End: 08-07-2023 ambulatory [facility] Work Phone: Start: 08-07-2023 End: 08-07-2023 Patient encounter procedure [facility]-Outpatient Breast Imaging Work Phone: Start: 08-05-2023 End: 08-05-2023 Patient encounter procedure [facility] Start: 07-17-2023 End: 07-25-2023 ambulatory [facility] Work Phone: Start: 07-17-2023 End: 07-25-2023 Discharged Recurring [facility]-Nutritional Services Work Phone: Start: 06-19-2023 End: 06-24-2023 ambulatory [facility] Work Phone: Start: 06-19-2023 End: 06-24-2023 Discharged Recurring [facility]-Nutritional Services Work Phone: Start: 05-23-2023 End: 05-24-2023 ambulatory [facility] Work Phone: Start: 05-23-2023 End: 05-24-2023 [facility] Start: 04-24-2023 End: 04-24-[address] Shaheen Ocampo Work Phone: [facility] Work Phone: Start: 04-24-2023 End: 04-24-[address] Shaheen Ocampo Work Phone: [facility]-Nutritional Services Start: 03-04-2023 End: 03-04-[address] Shaheen Ocampo Work Phone: [facility]-Laboratory Start: 03-04-2023 End: 03-24-[address] Shaheen Ocampo Work Phone: [facility] Work Phone: Start: 03-04-2023 End: 03-24-[address] Shaheen Ocampo Work Phone: [facility]-Nutritional Services Start: 03-04-[address] Shaheen Ocampo Work Phone: [facility]-Nutritional Services Start: 02-18-2023 End: 02-22-[address] Shaheen Ocampo Work Phone: [facility] Work Phone: Start: 02-18-2023 End: 02-22-[address] Shaheen Ocampo Work Phone: [facility]-Nutritional Services Start: 01-21-2023 End: 01-22-[address] Shaheen Ocampo Work Phone: [facility] Work Phone: Start: 01-21-2023 End: 01-22-[address] Shaheen Ocampo Work Phone: [facility]-Nutritional Services Start: 01-15-2023 End: 01-15-[address] Shaheen Ocampo Work Phone: [facility] Start: 01-08-2023 End: 01-08-[address] Shaheen Ocampo Work Phone: [facility] Work Phone: Start: 01-08-2023 End: 01-08-[address] Shaheen Ocampo Work Phone: [facility]-Laboratory Start: 01-02-[address] Shaheen Ocampo Work Phone: [facility]-Nutritional Services Start: 12-03-2022 End: 12-25-2022 ambulatory [facility] Work Phone: Start: 12-03-2022 End: 12-25-2022 Discharged Recurring [facility]-Nutritional Services Start: 11-01-2022 End: 11-24-2022 ambulatory [facility] Work Phone: Start: 11-01-2022 End: 11-24-2022 Discharged Recurring [facility]-Nutritional Services Start: 10-15-2022 End: 10-24-2022 ambulatory [facility] Work Phone: Start: 10-15-2022 End: 10-24-2022 Discharged Recurring [facility]-Nutritional Services Start: 08-16-2022 End: 08-24-2022 ambulatory [facility] Work Phone: Start: 08-16-2022 End: 08-24-2022 Discharged Recurring [facility]-Nutritional Services Start: 07-31-2022 End: 07-31-2022 ambulatory [facility] Work Phone: Start: 07-31-2022 End: 07-31-2022 Patient encounter procedure [facility]-Laboratory Start: 07-31-2022 Registered Recurring [facility]-Nutritional Services Start: 06-19-2022 End: 06-24-2022 Discharged Recurring [facility]-Nutritional Services Start: 05-17-2022 End: 05-24-2022 Discharged Recurring [facility]-Nutritional Services Start: 03-27-2022 End: 04-24-2022 Discharged Recurring [facility]-Nutritional Services Start: 03-27-2022 Registered Recurring [facility]-Nutritional Services Start: 03-21-2022 End: 03-21-2022 Patient encounter procedure [facility]-Laboratory Start: 03-05-2022 End: 03-24-2022 Discharged Recurring [facility]-Nutritional Services Start: 02-05-2022 End: 02-22-2022 [facility] Start: 01-22-2022 End: 01-22-2022 Discharged Recurring [facility]-Nutritional Services Start: 01-07-2022 End: 01-07-2022 Emergency department patient visit [facility]-Emergency Department Start: 12-19-2021 End: 12-25-2021 [facility] Start: 11-15-2021 Patient encounter procedure [facility]-Laboratory, [place] Start: 11-13-2021 End: 11-24-2021 [facility] Procedures Date Procedure Procedure Detail Performing Clinician Start: 12-31-2024 Screening mammography Axel Ocampo MD Work Phone: Start: 12-28-2024 Plain x-ray of wrist Dr José Miguel Ocampo MD Work Phone: Start: 12-17-2023 Decompression of med neal nerve Dr. Shaheen Ocampo Work Phone: Start: 10-29-2023 Decompression of med neal nerve Dr. Shaheen Ocampo Work Phone: Start: 08-21-2023 Plain x-ray of pelvi s and lower extremity Dr. Shaheen Ocampo Work Phone: Start: 08-07-2023 Screening mammography Start: 01-07-2022 CT of head without contrast Start: 07-16-2017 End: 09-04-2017 *CMP Complete Metabolic Panel Ronda Encarnacion NP Work Phone: Start: 07-16-2017 End: 09-04-2017 Hemoglobin A1c/Hemoglobin.total in Blood Ronda Encarnacion NP Work Phone: Start: 07-16-2017 End: 09-04-2017 Lipid 1996 panel - Serum or Plasma Ronda Encarnacion [employer] Work Phone: Start: 01-16-2017 End: 01-16-2017 *Microalbumin, Creatine Ratio, rand urine Ronda Encarnacion [employer] Work Phone: Start: 01-16-2017 End: 01-16-2017 Hemoglobin A1c/Hemoglobin.total in Blood Ronda Trotterjuan SINGH Work Phone: Start: 01-16-2017 End: 01-16-2017 *Microalbumin, Creatine Ratio, rand urine Ronda Encarnacion [employer]EL[employer] Work Phone: Start: 01-16-2017 End: 01-16-2017 HbA1c Ronda Encarnacion [employer]EL[employer] Work Phone: Start: 01-16-2017 End: 01-16-2017 Lipid panel [AGGREGATE] Ronda cMcrary Alysha N P Work Phone: Plan of Treatment Date Care Activity Detail Author Start: 09-08-2025 Registered Recurring Registered Recurring -Nutritional Servi mike Work Phone: Start: 12-17-2023 Anes nerve muscle tdn fascia&bursa forearm wrist ANESTH LOWER ARM SURGERY [facility] Start: 12-17-2023 Neuroplasty &/transpos median nrv carpal tunne CARPAL TUNNEL SURGERY [facility] Start: 12-17-2023 Application of ice collar, cap or bag [facility] Start: 12-17-2023 Catheterization of vein [facility] Start: 12-17-2023 Elevation of affected extremity [facility] Start: 12-17-2023 Following clinical pathway protocol [facility] Start: 12-17-2023 Patient discharge [facility] Start: 12-17-2023 Procedure discontinued [facility] Start: 12-17-2023 Taking patient vital signs [facility] Start: 12-17-2023 Vital signs measurements [facility] Start: 12-17-2023 [facility] Start: 12-17-2023 Medication education [facility] Start: 10-29-2023 Patient discharge [facility] Start: 10-29-2023 Application of ice collar, cap or bag [facility] Start: 10-29-2023 Catheterization of vein [facility] Start: 10-29-2023 Elevation of affected extremity [facility] Start: 10-29-2023 Following clinical pathway protocol [facility] Start: 10-29-2023 Procedure discontinued [facility] Start: 10-29-2023 Taking patient vital signs [facility] Start: 10-29-2023 Vital signs measurements [facility] Start: 10-29-2023 [facility] Start: 10-29-2023 Anes nerve muscle tdn fascia&bursa forearm wrist ANESTH LOWER ARM SURGERY [facility] Start: 10-29-2023 Neuroplasty &/transpos median nrv carpal tunne CARPAL TUNNEL SURGERY [facility] Start: 10-29-2023 Medication education [facility] Start: 08-21-2023 Patient referral [facility] Work Phone: Start: 01-08-2023 Procedure [facility] Start: 01-21-2018 End: 01-21-2018 Appointment Appointment [facility] Work Phone: Start: 10-21-2017 End: 10-21-2017 Appointment Appointment [facility] Work Phone: Start: 07-16-2017 End: 09-04-2017 *CMP Complete Metabolic Panel *CMP Complete Metabolic Panel [facility] Work Phone: Start: 07-16-2017 End: 09-04-2017 Hemoglobin A1c/Hemoglobin.total mass fraction (Bld) *HgA1C [facility] Work Phone: Start: 07-16-2017 End: 09-04-2017 Lipid panel [AGGREGATE] *Lipid Profile [facility] Work Phone: Start: 07-16-2017 End: 07-16-2017 Appointment [facility]ointment [facility] Work Phone: Start: 07-16-2017 End: 07-16-2017 *CMP Complete Metabolic Panel *CMP Complete Metabolic Panel [facility] Work Phone: Start: 07-16-2017 End: 07-16-2017 HbA1c *HgA1C [facility] Work Phone: Start: 07-16-2017 End: 07-16-2017 Lipid panel [AGGREGATE] *Lipid Profile [facility] Work Phone: Start: 04-15-2017 End: 04-15-2017 Appointment Appointment [facility] Work Phone: Start: 04-15-2017 End: 04-15-2017 *CMP Complete Metabolic Panel *CMP Complete Metabolic Panel [facility] Work Phone: Start: 04-15-2017 End: 04-15-2017 HbA1c *HgA1C [facility] Work Phone: Start: 04-15-2017 End: 04-15-2017 Lipid panel [AGGREGATE] *Lipid Profile [facility] Work Phone: Start: 01-16-2017 End: 01-16-2017 *Microalbumin, Creatine Ratio, rand urine *Microalbumin, Creatine Ratio, rand urine [facility] Work Phone: Start: 01-16-2017 End: 01-16-2017 Hemoglobin A1c/Hemoglobin.total mass fraction (Bld) *HgA1C [facility] Work Phone: Start: 01-16-2017 End: 01-16-2017 *Microalbumin, Creatine Ratio, rand urine *Microalbumin, Creatine Ratio, rand urine [facility] Work Phone: Start: 01-16-2017 End: 01-16-2017 HbA1c *HgA1C [facility] Work Phone: Patient Education ED Headache Unspecified [facility] Work Phone: Patient referral [facility] Work Phone: [facility] Payers Date Payer Category Payer Self-pay [id number] 2013 Unknown [id number] 2013 Unknown [id number] Unknown [id number] 2.16.8 [id number] Unknown [id number] 2.16.8 [id number] Unknown [id number] 2.16.8 40.1.041035.3.579.2.462 Unknown [id number] 2.16.8 40.1.797141.3.579.2.462 Unknown [id number] 2.16.8 40.1.265585.3.579.2.462 Unknown [id number] 2.16.8 40.1.864714.3.579.2.462 Unknown [id number] 2.16.8 40.1.257637.3.579.2.462 Unknown [id number] 2.16.8 40.1.758856.3.579.2.462 Unknown [id number] 2.16.8 40.1.664892.3.579.2.462 Unknown [id number] 2.16.8 40.1.101577.3.579.2.462 Unknown [id number] 2.16.8 40.1.713870.3.579.2.462 Unknown [id number] 2.16.8 40.1.474095.3.579.2.462 Unknown [id number] 2.16.8 40.1.192438.3.579.2.462 Unknown [id number] 2.16.8 40.1.190813.3.579.2.462 Unknown [id number] 2.16.8 40.1.726508.3.579.2.462 Unknown [id number] 2.16.8 40.1.370261.3.579.2.462 Unknown [id number] 2.16.8 40.1.057501.3.579.2.462 Unknown [id number] 2.16.8 40.1.665014.3.579.2.462 Social History Date Type Detail Facility Start: 01-07-2022 End: 10-22-2023 Tobacco smoking status NHIS Unknown if ever smoked [facility] Start: 1970 Sex Assigned At Female [facility] Start: 05-03-2015 None [facility] Start: 05-03-2015 With Family [facility] Start: 12-30-2023 Tobacco smoking status NHIS Never smoked tobacco (finding) [facility] Start: 02-23-2025 Sex Female (finding) [facility] Sex Female [facility] NEGATED: Highlighted row [facility] Medical Equipment Procedure Code Equipment Code Equipment Origin al Text Equipment Identifier Dates Blood Sugar Diagnostic (Freestyle Test) strip Start: 10-27-2018 Blood Sugar Diagnostic (Freestyle Test) strip Start: 12-25-2017 End: 10-27-2018 Blood Sugar Diagnostic (Freestyle Test) strip Start: 10-27-2018 End: 10-27-2018 Blood Sugar Diagnostic (Freestyle Test) strip Start: 10-27-2018 Blood Sugar Diagnostic (Freestyle Test) strip Start: 12-25-2017 End: 10-27-2018 Blood Sugar Diagnostic (Freestyle Test) strip Start: 10-27-2018 End: 10-27-2018 Blood Sugar Diagnostic (Freestyle Test) strip Start: 10-27-2018 Blood Sugar Diagnostic (Freestyle Test) strip Start: 12-25-2017 End: 10-27-2018 Blood Sugar Diagnostic (Freestyle Test) strip Start: 10-27-2018 End: 10-27-2018 Blood Sugar Diagnostic (Freestyle Test) strip Start: 10-27-2018 Blood Sugar Diagnostic (Freestyle Test) strip Start: 12-25-2017 End: 10-27-2018 Blood Sugar Diagnostic (Freestyle Test) strip Start: 10-27-2018 End: 10-27-2018 Blood Sugar Diagnostic (Freestyle Test) strip Start: 10-27-2018 Blood Sugar Diagnostic (Freestyle Test) strip Start: 12-25-2017 End: 10-27-2018 Blood Sugar Diagnostic (Freestyle Test) strip Start: 10-27-2018 End: 10-27-2018 Blood Sugar Diagnostic (Freestyle Test) strip Start: 10-27-2018 Blood Sugar Diagnostic (Freestyle Test) strip Start: 12-25-2017 End: 10-27-2018 Blood Sugar Diagnostic (Freestyle Test) strip Start: 10-27-2018 End: 10-27-2018 Blood Sugar Diagnostic (Freestyle Test) strip Start: 10-27-2018 Blood Sugar Diagnostic (Freestyle Test) strip Start: 12-25-2017 End: 10-27-2018 Blood Sugar Diagnostic (Freestyle Test) strip Start: 10-27-2018 End: 10-27-2018 Blood Sugar Diagnostic (Freestyle Test) strip Start: 10-27-2018 Blood Sugar Diagnostic (Freestyle Test) strip Start: 12-25-2017 End: 10-27-2018 Blood Sugar Diagnostic (Freestyle Test) strip Start: 10-27-2018 End: 10-27-2018 Blood Sugar Diagnostic (Freestyle Test) strip Start: 10-27-2018 Blood Sugar Diagnostic (Freestyle Test) strip Start: 12-25-2017 End: 10-27-2018 Blood Sugar Diagnostic (Freestyle Test) strip Start: 10-27-2018 End: 10-27-2018 Blood Sugar Diagnostic (Freestyle Test) strip Start: 10-27-2018 Blood Sugar Diagnostic (Freestyle Test) strip Start: 12-25-2017 End: 10-27-2018 Blood Sugar Diagnostic (Freestyle Test) strip Start: 10-27-2018 End: 10-27-2018 Blood Sugar Diagnostic (Freestyle Test) strip Start: 10-27-2018 Blood Sugar Diagnostic (Freestyle Test) strip Start: 12-25-2017 End: 10-27-2018 Blood Sugar Diagnostic (Freestyle Test) strip Start: 10-27-2018 End: 10-27-2018 Blood Sugar Diagnostic (Freestyle Test) strip Start: 10-27-2018 Blood Sugar Diagnostic (Freestyle Test) strip Start: 12-25-2017 End: 10-27-2018 Blood Sugar Diagnostic (Freestyle Test) strip Start: 10-27-2018 End: 10-27-2018 Blood Sugar Diagnostic (Freestyle Test) strip Start: 10-27-2018 Blood Sugar Diagnostic (Freestyle Test) strip Start: 12-25-2017 End: 10-27-2018 Blood Sugar Diagnostic (Freestyle Test) strip Start: 10-27-2018 End: 10-27-2018 Blood Sugar Diagnostic (Freestyle Test) strip Start: 10-27-2018 Blood Sugar Diagnostic (Freestyle Test) strip Start: 12-25-2017 End: 10-27-2018 Blood Sugar Diagnostic (Freestyle Test) strip Start: 10-27-2018 End: 10-27-2018 Blood Sugar Diagnostic (Freestyle Test) strip Start: 10-27-2018 Blood Sugar Diagnostic (Freestyle Test) strip Start: 12-25-2017 End: 10-27-2018 Blood Sugar Diagnostic (Freestyle Test) strip Start: 10-27-2018 End: 10-27-2018 Blood Sugar Diagnostic (Freestyle Test) strip Start: 10-27-2018 Blood Sugar Diagnostic (Freestyle Test) strip Start: 12-25-2017 End: 10-27-2018 Blood Sugar Diagnostic (Freestyle Test) strip Start: 10-27-2018 End: 10-27-2018 Blood Sugar Diagnostic (Freestyle Test) strip Start: 10-27-2018 Blood Sugar Diagnostic (Freestyle Test) strip Start: 12-25-2017 End: 10-27-2018 Blood Sugar Diagnostic (Freestyle Test) strip Start: 10-27-2018 End: 10-27-2018 Blood Sugar Diagnostic (Freestyle Test) strip Start: 10-27-2018 Blood Sugar Diagnostic (Freestyle Test) strip Start: 12-25-2017 End: 10-27-2018 Blood Sugar Diagnostic (Freestyle Test) strip Start: 10-27-2018 End: 10-27-2018 Blood Sugar Diagnostic (Freestyle Test) strip Start: 10-27-2018 Blood Sugar Diagnostic (Freestyle Test) strip Start: 12-25-2017 End: 10-27-2018 Blood Sugar Diagnostic (Freestyle Test) strip Start: 10-27-2018 End: 10-27-2018 Blood Sugar Diagnostic (Freestyle Test) strip Start: 10-27-2018 Blood Sugar Diagnostic (Freestyle Test) strip Start: 12-25-2017 End: 10-27-2018 Blood Sugar Diagnostic (Freestyle Test) strip Start: 10-27-2018 End: 10-27-2018 Blood Sugar Diagnostic (Freestyle Test) strip Start: 10-27-2018 Blood Sugar Diagnostic (Freestyle Test) strip Start: 12-25-2017 End: 10-27-2018 Blood Sugar Diagnostic (Freestyle Test) strip Start: 10-27-2018 End: 10-27-2018 Blood Sugar Diagnostic (Freestyle Test) strip Start: 10-27-2018 Blood Sugar Diagnostic (Freestyle Test) strip Start: 12-25-2017 End: 10-27-2018 Blood Sugar Diagnostic (Freestyle Test) strip Start: 10-27-2018 End: 10-27-2018 Blood Sugar Diagnostic (Freestyle Test) strip Start: 10-27-2018 Blood Sugar Diagnostic (Freestyle Test) strip Start: 12-25-2017 End: 10-27-2018 Blood Sugar Diagnostic (Freestyle Test) strip Start: 10-27-2018 End: 10-27-2018 Blood Sugar Diagnostic (Freestyle Test) strip Start: 10-27-2018 Blood Sugar Diagnostic (Freestyle Test) strip Start: 12-25-2017 End: 10-27-2018 Blood Sugar Diagnostic (Freestyle Test) strip Start: 10-27-2018 End: 10-27-2018 Blood Sugar Diagnostic (Freestyle Test) strip Start: 10-27-2018 Blood Sugar Diagnostic (Freestyle Test) strip Start: 12-25-2017 End: 10-27-2018 Blood Sugar Diagnostic (Freestyle Test) strip Start: 10-27-2018 End: 10-27-2018 Blood Sugar Diagnostic (Freestyle Test) strip Start: 10-27-2018 Blood Sugar Diagnostic (Freestyle Test) strip Start: 12-25-2017 End: 10-27-2018 Blood Sugar Diagnostic (Freestyle Test) strip Start: 10-27-2018 End: 10-27-2018 Blood Sugar Diagnostic (Freestyle Test) strip Start: 10-27-2018 Blood Sugar Diagnostic (Freestyle Test) strip Start: 12-25-2017 End: 10-27-2018 Blood Sugar Diagnostic (Freestyle Test) strip Start: 10-27-2018 End: 10-27-2018 Blood Sugar Diagnostic (Freestyle Test) strip Start: 10-27-2018 Blood Sugar Diagnostic (Freestyle Test) strip Start: 12-25-2017 End: 10-27-2018 Blood Sugar Diagnostic (Freestyle Test) strip Start: 10-27-2018 End: 10-27-2018 Blood Sugar Diagnostic (Freestyle Test) strip Start: 10-27-2018 Blood Sugar Diagnostic (Freestyle Test) strip Start: 12-25-2017 End: 10-27-2018 Blood Sugar Diagnostic (Freestyle Test) strip Start: 10-27-2018 End: 10-27-2018 Blood Sugar Diagnostic (Freestyle Test) strip Start: 10-27-2018 Blood Sugar Diagnostic (Freestyle Test) strip Start: 12-25-2017 End: 10-27-2018 Blood Sugar Diagnostic (Freestyle Test) strip Start: 10-27-2018 End: 10-27-2018 Blood Sugar Diagnostic (Freestyle Test) strip Start: 10-27-2018 Blood Sugar Diagnostic (Freestyle Test) strip Start: 12-25-2017 End: 10-27-2018 Blood Sugar Diagnostic (Freestyle Test) strip Start: 10-27-2018 End: 10-27-2018 Blood Sugar Diagnostic (Freestyle Test) strip Start: 10-27-2018 Blood Sugar Diagnostic (Freestyle Test) strip Start: 12-25-2017 End: 10-27-2018 Blood Sugar Diagnostic (Freestyle Test) strip Start: 10-27-2018 End: 10-27-2018 Blood Sugar Diagnostic (Freestyle Test) strip Start: 10-27-2018 Blood Sugar Diagnostic (Freestyle Test) strip Start: 12-25-2017 End: 10-27-2018 Blood Sugar Diagnostic (Freestyle Test) strip Start: 10-27-2018 End: 10-27-2018 Blood Sugar Diagnostic (Freestyle Test) strip Start: 10-27-2018 Blood Sugar Diagnostic (Freestyle Test) strip Start: 12-25-2017 End: 10-27-2018 Blood Sugar Diagnostic (Freestyle Test) strip Start: 10-27-2018 End: 10-27-2018 Blood Sugar Diagnostic (Freestyle Test) strip Start: 10-27-2018 Blood Sugar Diagnostic (Freestyle Test) strip Start: 12-25-2017 End: 10-27-2018 Blood Sugar Diagnostic (Freestyle Test) strip Start: 10-27-2018 End: 10-27-2018 Blood Sugar Diagnostic (Freestyle Test) strip Start: 10-27-2018 Blood Sugar Diagnostic (Freestyle Test) strip Start: 12-25-2017 End: 10-27-2018 Blood Sugar Diagnostic (Freestyle Test) strip Start: 10-27-2018 End: 10-27-2018 Blood Sugar Diagnostic (Freestyle Test) strip Start: 10-27-2018 Blood Sugar Diagnostic (Freestyle Test) strip Start: 12-25-2017 End: 10-27-2018 Blood Sugar Diagnostic (Freestyle Test) strip Start: 10-27-2018 End: 10-27-2018 Goals Date Patient Goal Desired Activity /State Mental Status Date Assessment Result Facility 12-17-2023 Cognitive function Voice/Name [facility] Work Phone: 10-29-2023 Cognitive function Voice/Name [facility] Work Phone: 01-07-2022 Cognitive function Level Of Cons ciousness Awake;Alert;Appropriate;Follow s Commands [facility] Work Phone: Clinical Notes 09-11-2023 to 12-28-2024 Note Date & Type Note Facility 12-28-2024 Evaluation note Diagnosis Onset Date Resolution 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 Shaheen Ocampo MD Status:REG S DC Location: [place] [address] History and Physical Date of Admission: 12/17/23 [facility] [address] [place] [id number] OFFICE VISIT Date of Service: 11/21/23 MR#: [id number] Acct: [id number] Name: LEELEE LONGO Rep #: [id number] : 1970 Provider: Dr. Ifeanyi Jacob DO Age/Sex: 53/F [place] [facility] Status: Signed Intake Vital Signs 10/29/2313:07 11/20/2310:47 Height 5 ft 3 in 5 ft 3 in Intake Visit Reasons: RIGHT WRIST Chief Complaint: \ Is patient in pain?: Yes Allergies Environmental Allergies: Uncoded [pine] Allergy (Verified 11/21/23 11:32) Rashadhesive Adverse Reaction (Verified 11/21/23 11:32) Rash Medications bupropion HCl 300 mg 24 hr tablet, extended release 300 mg PO DAILY 03/20/16 [History Confirmed 11/21/23] gabapentin 300 mg capsule 300 mg PO BIDCM 03/20/16 [History Confirmed 11/21/23] meloxicam 15 mg tablet 15 mg PO DAILY 03/20/16 [History Confirmed 11/21/23] ziprasidone HCl 20 mg capsule (Geodon) 20 mg PO QHS 12/17/17 [History Confirmed 11/21/23] blood sugar diagnostic (FreeStyle Test strips) #100 ea 10/27/18 [Rx Confirmed 11/21/23] acetaminophen 325 mg capsule 325 mg PO ONCE PRN pain 01/15/23 [History Confirmed 11/21/23] lisinopril 2.5 mg tablet 2.5 mg PO DAILY 01/15/23 [History Confirmed 11/21/23] loratadine 10 mg tablet (Allergy Relief (loratadine)) 10 mg PO DAILY 01/15/23 [History Confirmed 11/21/23] venlafaxine 150 mg capsule,extended release 24 hr 150 mg PO DAILY 01/15/23 [History Confirmed 11/21/23] B-complex with vitamin C 1 cap PO DAILY 08/21/23 [History Confirmed 11/21/23] cholecalciferol (vitamin D3) 25 mcg (1,000 unit) capsule 25 mcg PO DAILY 08/21/23 [History Confirmed 11/21/23] metformin 500 mg tablet,extended release 24 hr 500 mg PO DAILY 08/21/23 [History Confirmed 11/21/23] oxycodone 5 mg tablet 5 - 10 mg (1 - 2 x 5 mg) PO Q4H PRN pain 3 days #14 tabs 10/29/23 [Rx Confirmed 11/21/23] mupirocin 2 % topical ointment 1 applic topical BID 10 days #15 grams 11/20/23 [Rx Confirmed 11/21/23] PFSH Medical History Alcohol use Anxiety Back pain Depression Diabetes Dietary restriction Difficulty swallowing Heartburn History of edema History of pain when walking HTN (hypertension) Injury of head and neck Leg cramps Loss of hearing Low iron Migraine headache Non-smoker Restless legs Uses wheelchair Surgical History H/O: hysterectomy History of History of tonsillectomy and adenoidectomy Family History Mother Heart disease Arthritis Social History household members: none Smoking Status: Never smoker second hand exposure: No alcohol intake: never substance use type: does not use HPI RIGHT WRIST Details: This documentation accurately reflects the service provided and the decisions made by me, Dr. Ifeanyi Jacob, DO 11/21/23 1128. Part of today?s visit was documented by [ ], acting as scribe. LEEELE LONGO is a 53 year old F here today for s/p Right open carpal tunnel release dos 10/29/23. Patient notes that she is doing well.She has no redness ordrainage. She states that her incision looks much better although it is tender. Patient denies any fevers or chills. She states that she had an infection on [facility], where she was given a cream with antibiotic. She has no numbness or tingling. Ortho Exam General General: Yes no acute distress Right Wrist/Hand Skin/Wound: No Swelling, No Ecchymosis and Yes capillary refill normal WRIST: skin healed, no drainage, full finger flexion and extension. dry, scaly skin. 80wrist extension, 60 flexion, full supination and pronation Left Wrist/Hand Skin/Wound: Yes CDI, No Swelling, No Ecchymosis, Yes capillary refill normal andNo erythema Left Wrist: Yes Durken's Test and Yes Phalen's; No Tinel's Head: Normocephalic Atraumatic Chest: symmetrical rise, non-labored breathing, no audible wheeze Abdomen: no guarding, non-rigid Supplemental Info 09/11/2023 EMG bilateral upper extremity:1. 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 This is consistent with a severe bilateral carpal tunnel syndrome. 2. No electrodiagnostic evidence is noted for cervical radiculopathy 05/09/2021 x-ray right hip: Advanced hip arthrosis with significant bone wear 05/09/2021 x-ray left hip:Advanced hip arthrosis with significant bone wear Coding Level of Care Code Off vis,est,level 3 Diagnoses Bilateral carpal tunnel syndrome G56.03 Assessment and Plan Assessment and Plan (1) Bilateral carpal tunnel syndrome: Status: Acute Plan . Her right wrist looks fine today there is no concern for infection it is healed over she has no symptoms. Her main complaint today is actually her left hand and she does wish to proceed with surgery on it. Patient should continue to improve. Explained that she will continue to have tenderness over her incision. Patient wanted to proceed with her left carpal tunnel release. She should keep the incision covered for a week after the surgery. Reviewed the pre-operative plans with the patient. Risks and benefits of the procedure were fully explained, including but not limited to infection, neurovascular injury, continued pain, arthritis, stiffness, need for further surgery, re-injury, DVT, PE, general risks of anesthesia, and loss of limb or life. The patient understands all the risks and does wish to proceed with written consent. Follow up for 2 week post op or sooner if pain, swelling, numbness or associatedsymptoms, or concerns develop. All questions answered. Patient in agreement of plan. 11/21/23 1145 <Electronically signed by Ifeanyi Jacob DO> Date Ifeanyi Jacob DO Cosigner Signature: Date (if applicable) CC: ~ I have examined the patient and the H&P has been reviewed. There are no clinicalchanges since date of exam. 12/17/23 1000 <Electronically signed by Ifeanyi Jacob DO> Cosigner Signature (if applicable): CC: Dr. Ifeanyi Jacob DO; Dr. Shaheen Ocampo MD~ Signed [facility] Work Phone: 1(754) 318-414801-23-2024 Procedure [facility] 11-04-2023 Discharge summary Author Harvinder Morgan [facility] November 04, 2023 6:22pm Note Date/Time November 01, 2023 1 0:50am [facility] Physical Therapy [facility] [address] [place] [address] / REHABILITATION SERVICES DISCHARGE SUMMARY MR#: [id number] Acct: [id number] Name: LEELEE LONGO Rep #: [id number] : 1970 53 From: Cert. JET Eddy, OCS Referring Dr.: Dr. Ifeanyi Jacob DO Status: REG RCR Insurance: [facility] SELF PAY INSURANCE Discharge Summary D/C summary: It has been my pleasure to treat LEELEE LONGO referred by Dr. Ifeanyi Jacob DO, with the diagnosis of OSTEOARHRITIS OF HIP for a total of 16 visit(s). Discharge Date: 11/01/23 Please see the following information for a summary of their discharge status. Subjective Subjective: Plan to continue on own . Patient had injection in hip by Dr Lo Pain Bilateral Hip: Pain Intensity (Out of 10): 4 Right Hip: Pain Intensity (Out of 10): 4 Left Hip: Pain Intensity (Out of 10): 4 Overall Improvement % Improvement: 30 Objective Objective/Function: POSTURE : forward posture knee varum left > right ,bilateralcalcaneal valgus hips/knees flexed NEURO: denies paresthesia/tingling GAIT: ambulates with fww knee varum ,calcaneal valgus ,hips/flexed ,calcaneal valgus with ER hips BALANCE: fair + with fww AROM: hip IR left - 35 degrees , right -35 degrees , hip flexion left 60 degrees,hip flexion right 70 degrees , supine left knee flexion 35 -60 degrees , 30-65 degrees ,hip abduction 20 degrees MMT: ( peak force) quads L 23.7 ,R 23.1 , hamstrings 28.8 L , R 28.2 , hip flexion L 14.9 ,R 14.6 Goals Goal 1:: Patient to be I with HEP for hips/knees Goal 2:: Patient to demonstrate 40 % improvement with decrease pain and improve function Goal Progress: Progressing Goal 3:: Patient to improve AROM hips /knees by 5-10 degrees to improve function Goal Progress: Progressing Goal 4:: Patient to peak force of quads/hams/hip by 5 # strength to improve function Goal Progress: Progressing Goal 5:: Patient to improve LFES score by 5 -10 points to improve QOL and function Goal Progress: Progressing Goal 6:: Patient to walk with walker with safe distance in home to maximize ADLS' 70% of the time. Goal Progress: Progressing Plan Plan: D/C D/C Information d/c sentence: If there are questions or concerns regarding this patient's physical therapy, please feel free to call me at [phone]. Thank you for the referral of thispatient. Sincerely, Harvinder Morgan PT, Cert MDT, OCS Balance/Gait/Functional tests Balance/Special Test Scores Lower Extremity Functional Score: 17 Improvement % Improvement: 30 <Electronically signed by Harvinder Morgan PT Cert. JET, OCS> 11/04/23 9182 CC: Dr. Ifeanyi Jacob DO; Dr. Shaheen Ocampo MD ~ JLA Signed [facility] Work Phone: 1(470) 248-418412-05-2023 History and physical note [facility] October 29, 2023 1:51pm Note Date/Time October 29, 2023 1 :51pm [facility] Medical Records Department [address] [place] [address] History & Physical Exam 10/29/23 1350 MR#: [id number] Acct: [id number] Name: LEELEE LONGO Rep #:[id number] : 1970 53 From: Ifeanyi Jacob DO PCP: Dr. Shaheen Ocampo MD Status:REG S TN Location: [place] [address] History and Physical Date of Admission: 10/29/23 [facility] [address] [place] [address] [address] [place] [address] OFFICE VISIT Date of Service: 10/07/23 MR#: [id number] Acct: [id number] Name: LEELEE LONGO Rep #: [id number] : 1970 Provider: Dr. Ifeanyi Jacob DO Age/Sex: 53/F [place] [facility] [place] Status: Signed Intake Vital Signs 08/22/2309:00 Height 5 ft 3 in Intake Visit Reasons: BL HANDS Is patient in pain?: Yes Allergies Environmental Allergies: Uncoded [pine] Allergy (Verified 10/07/23 13:05) Rashadhesive Adverse Reaction (Verified 10/07/23 13:05) Rash Medications bupropion HCl 300 mg 24 hr tablet, extended release 300 mg PO DAILY 03/20/16 [History Confirmed 10/07/23] gabapentin 300 mg capsule 300 mg PO BIDCM 03/20/16 [History Confirmed 10/07/23] meloxicam 15 mg tablet 15 mg PO DAILY 03/20/16 [History Confirmed 10/07/23] ziprasidone HCl 20 mg capsule (Geodon) 20 mg PO ONCE 12/17/17 [History Confirmed 10/07/23] tramadol 50 mg tablet 50 mg PO TID 08/13/18 [History Confirmed 10/07/23] blood sugar diagnostic (FreeStyle Test strips) #100 ea 10/27/18 [Rx Confirmed 10/07/23] acetaminophen 325 mg capsule 325 mg PO ONCE PRN 01/15/23 [History Confirmed 10/07/23] lisinopril 2.5 mg tablet 2.5 mg PO DAILY 01/15/23 [History Confirmed 10/07/23] loratadine 10 mg tablet (Allergy Relief (loratadine)) 10 mg PO DAILY 01/15/23 [History Confirmed 10/07/23] venlafaxine 150 mg capsule,extended release 24 hr 150 mg PO DAILY 01/15/23 [History Confirmed 10/07/23] B-complex with vitamin C 1 cap PO DAILY 08/21/23 [History Confirmed 10/07/23] cholecalciferol (vitamin D3) 25 mcg (1,000 unit) capsule 25 mcg PO DAILY 08/21/23 [History Confirmed 10/07/23] metformin 500 mg tablet,extended release 24 hr mg PO 08/21/23 [History Confirmed 10/07/23] [facility] History (Updated 08/21/23 @ 11:[address] Ifeanyi Jacob DO) Diabetes type 2, controlled HTN (hypertension) Surgical History H/O: hysterectomy H/O: hysterectomy History of tonsillectomy History of tonsillectomy Family History Mother Heart disease Arthritis Social History (Updated 08/21/23 @ 10:27 by Leelee Atkinson) household members: none Smoking Status: Never smoker second hand exposure: No alcohol intake: never substance use type: does not use HPI BL HANDS Details: This documentation accurately reflects the service provided and the decisions made by me, Dr. Ifeanyi Jacob DO 10/07/23 0945. Part of today?s visit was documented by Leelee Atkinson, CHANDLER acting as scribe. LEELEE LONGO is a 53 year old F here today for a followup on her bilateral wrists. She had an EMG which is here for review. Patient notes that she continues to have numbness and tingling in the radial three digits. this as beenlimiting her ability to croshe , and waking he up at night and driving, She has numbness into her thumb, index and middle fingers primarily but at times she gets numbness into all of her fingers. Patient has weakness as well. She is right hand dominant. Patient has wrist splints which is helpful. Ortho Exam General General: Yes no acute distress Neurologic: Yes alert and Yes oriented x3 Psychologic: Yes reasonable and appropriate Right Wrist/Hand Skin/Wound: No Swelling, No Ecchymosis, Yes nail intact and Yes capillary refillnormal WRIST: full supination and pronation, 75 extention, full flexion Left Wrist/Hand Skin/Wound: No Swelling, No Ecchymosis and Yes capillary refill normal WRIST: supination 75, full pronation Head: Normocephalic Atraumatic Chest: symmetrical rise, non-labored breathing, no audible wheeze Abdomen: no guarding, non-rigid Supplemental Info 09/11/2023 EMG bilateral upper extremity:1. 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 This is consistent with a severe bilateral carpal tunnel syndrome. 2. No electrodiagnostic evidence is noted for cervical radiculopathy 05/09/2021 x-ray right hip: Advanced hip arthrosis with significant bone wear 05/09/2021 x-ray left hip:Advanced hip arthrosis with significant bone wear Coding Level of Care Code Off vis,est,level 3 Diagnoses Bilateral carpal tunnel syndrome G56.03 Assessment and Plan Assessment and Plan (1) Bilateral carpal tunnel syndrome: Status: Acute Plan Spoke with the patient about having severe carpal tunnel syndrome. Spoke with her about her options- bracing or injections. Due to the severity of the carpal tunnel syndrome, recommended open carpal tunnel release. Explained the goal of surgery is to release pressure on the nerve however the nerve itself may take time to function normally and sometimes it never comes back. She has a 1/2 poundrestriction for the first few weeks. She would like to proceed with surgery at this time for her right hand. Spoke with her about the benefits and risks of the surgery including incisional hypersensitivity pillar pain postoperative restrictions expected postoperative course continued symptoms. She is unable to take NSAIDs 7 days prior to surgery. Tentative surgery date October 29, 2023 Follow up for 2 week post op or sooner if pain, swelling, numbness or associatedsymptoms, or concerns develop. All questions answered. Patient in agreement of plan. 10/07/23 1342 <Electronically signed by Ifeanyi Jacob DO> Date Ifeanyi Jacob DO Cosigner Signature: Date (if applicable) CC: ~ I have examined the patient and the H&P has been reviewed. There are no clinicalchanges since date of exam. 10/29/23 1351 <Electronically signed by Ifeanyi Jacob DO> Cosigner Signature (if applicable): CC: Dr. Ifeanyi Jacob DO; Dr. Shaheen Ocampo MD~ Signed [facility] Work Phone: [phone] 421-537312-05-2023 Procedure [facility]23 [facility] Ifeanyi Jacob [facility] October 29, 2023 2:45pm Note Date/Time October 29, 2023 2 :41pm [facility] Medical Records Department [address] [place] [address] Instructions for Home/Discharge Instructions 10/29/23 1440 MR#: [id number] Acct: [id number] Name: LEELEE LONGO Rep #:[id number] : 1970 53 From: Ifeanyi Jacob DO PCP: Dr. Shaheen Ocampo MD Status:REG S DC Discharge Instructions Diet Discharge Diet: No restrictions Dressing / Incision Call your doctor if you observe: Shortness of breath and Chest pain Additional Dressing/Incision Instructions:: Ice and elevate operative extremity next 72 hours. Keep dressing on clean and dry for 48 hours then may remove and allow warm soapy water to rinse over incision but do not submerge until sutures are out. Then apply bandaid over incision and change daily. encourage finger range of motion. Not lift more than 1/2 pound. Minimize narcotic use only as needed and directed, may use OTC NSAID and Tylenol to supplement/substitute for pain control. Follow Up Care Please Follow Up With: Ifeanyi Jacob DO When: 2 weeks Test Results: Test results from this visit will be discussed in further detail at your follow- up appointment, if applicable. Discharge Plan Admission Primary Reason for Your Visit: Right carpal tunnel release Attending Provider: Ifeanyi Jacob Primary Care Provider: Shaheen Ocampo Discharge Orders/Prescriptions Prescriptions: New oxycodone 5 mg tablet 5 - 10 mg PO Q4H PRN (Reason: pain) 3 Days Qty: 14 0RF Continued ziprasidone HCl [Geodon] 20 mg capsule 20 mg PO QHS (DME) FreeStyle Test strip See Dose Instructions .ROUTE .MEDSUPPLY Qty: 100 11RF Dose Instruction: As directed Rx Instructions: use to check BG tid lisinopril 2.5 mg tablet 2.5 mg PO DAILY loratadine [Allergy Relief (loratadine)] 10 mg tablet 10 mg PO DAILY acetaminophen 325 mg capsule 325 mg PO ONCE PRN (Reason: pain) venlafaxine 150 mg capsule,extended release 24hr 150 mg PO DAILY metformin 500 mg tablet extended release 24 hr 500 mg PO DAILY Patient Comments: TAKE 1 TABLET BY MOUTH EVERY DAY B-complex with vitamin C Capsule 1 cap PO DAILY cholecalciferol (vitamin D3) 25 mcg (1,000 unit) capsule 25 mcg PO DAILY meloxicam 15 MG tablet 15 mg PO DAILY gabapentin 300 MG capsule 300 mg PO BIDCM bupropion HCl 300 MG tablet extended release 24 hr 300 mg PO DAILY Discontinued tramadol 50 mg tablet 50 mg PO Q8H Referrals / Follow Up: Shaheen Ocampo MD [Primary Care Provider] - Disposition Disposition (needs filled in before D/C Order can be placed): Home, Self Care 10/29/23 1445<Electronically signed by Ifeanyi Jacob DO>Ifeanyi [facility] CC: Dr. Shaheen Ocampo MD ~ Signed [facility] Work Phone: Discharge summary Author [facility] December 17, 2023 11:01am Note Date/Time December 17, 2023 1 0:58am [facility] Medical Records Department [address] [place] [id number] Instructions for Home/Discharge Instructions 12/17/23 1054 MR#: [id number] Acct: [id number] Name: LEELEE LONGO Rep #:[id number] : 1970 53 From: Ifeanyi Jacob DO PCP: Dr. Shaheen Ocampo MD Status:REG S DC Discharge Instructions Diet Discharge Diet: No restrictions Dressing / Incision Call your doctor if you observe: Shortness of breath and Chest pain Additional Dressing/Incision Instructions:: Ice and elevate operative extremity next 72 hours. Keep dressing on clean and dry for 7 days , If dressing gets wetor dirty please notify the office and come into office sooner than appointment. after 7 days remove dressing and wash with warm soapy water to rinse over incision but do not submerge until sutures are out. after seven days begin washing 2x/day and then place a bandaid, encourage finger range of motion. Notlift more than 1/2 pound. Minimize narcotic use only as needed and directed, may use OTC NSAID and Tylenol to supplement/substitute for pain control. Follow Up Care Please Follow Up With: Ifeanyi Jacob DO When: 2 week Test Results: Test results from this visit will be discussed in further detail at your follow- up appointment, if applicable. Discharge Plan Admission Primary Reason for Your Visit: Left carpal tunnel release Attending Provider: Ifeanyi Jacob Primary Care Provider: Shaheen Ocampo Discharge Orders/Prescriptions Prescriptions: New oxycodone 5 mg tablet 2.5 - 10 mg PO Q4H PRN (Reason: pain) 3 Days Qty: 12 0RF Continued ziprasidone HCl [Geodon] 20 mg capsule 20 mg PO QHS (DME) FreeStyle Test strip See Dose Instructions .ROUTE .MEDSUPPLY Qty: 100 11RF Dose Instruction: As directed Rx Instructions: use to check BG tid lisinopril 2.5 mg tablet 2.5 mg PO DAILY loratadine [Allergy Relief (loratadine)] 10 mg tablet 10 mg PO DAILY venlafaxine 150 mg capsule,extended release 24hr 150 mg PO DAILY metformin 500 mg tablet extended release 24 hr 500 mg PO DAILY Patient Comments: TAKE 1 TABLET BY MOUTH EVERY DAY B-complex with vitamin C Capsule 1 cap PO DAILY cholecalciferol (vitamin D3) 25 mcg (1,000 unit) capsule 25 mcg PO DAILY meloxicam 15 MG tablet 15 mg PO DAILY gabapentin 300 MG capsule 300 mg PO BIDCM bupropion HCl 300 MG tablet extended release 24 hr 300 mg PO DAILY Referrals / Follow Up: Shaheen Ocampo MD [Primary Care Provider] - Disposition Disposition (needs filled in before D/C Order can be placed): Home, Self Care 12/17/23 1101<Electronically signed by Ifeanyi Jacob DO>Ifeanyi Jacob DO CC: Dr. Shaheen Ocampo MD ~ Signed [facility] Work Phone: Evaluation noteNo assessment information available [facility] Work Phone: Evaluation note* Diagnosis Onset Date Resolution Status Constipation acute [facility] Work Phone: Evaluation note* Diagnosis Onset Date Resolution Status Bilateral carpal tunnel syndrome acute Diabetes mellitus type 2, co ntrolled, without complications chronic Hip osteoarthritis chronic Morbid obesity chronic [facility] Work Phone: Evaluation note* Diagnosis Onset Date Resolution Status Bilateral carpal tunnel syndrome acute Diabetes mellitus type 2, co ntrolled, without complications chronic Hip osteoarthritis chronic Morbid obesity chronic Bilateral carpal tunnel syndrome acute [facility] Work Phone: Evaluation note* Diagnosis Onset Date Resolution Status Bilateral carpal tunnel syndrome acute Diabetes mellitus type 2, co ntrolled, without complications chronic Hip osteoarthritis chronic Morbid obesity chronic Bilateral carpal tunnel syndrome acute Orthopedic aftercare acute Impetigo acute Bilateral carpal tunnel syndrome acute [facility] Work Phone: Evaluation note* Diagnosis Onset Date Resolution Status Bilateral carpal tunnel syndrome acute Orthopedic aftercare acute Impetigo acute Bilateral carpal tunnel syndrome acute [facility] Work Phone: Evaluation note* Diagnosis Onset Date Resolution Status Bilateral carpal tunnel syndrome acute Orthopedic aftercare acute Impetigo acute Bilateral carpal tunnel syndrome acute Orthopedic aftercare acute [facility] Work Phone: Evaluation note* Diagnosis Onset Date Resolution Status Orthopedic aftercare acute Impetigo acute Bilateral carpal tunnel syndrome acute Orthopedic aftercare acute [facility] Work Phone: Evaluation note* Diagnosis Onset Date Resolution Status Orthopedic aftercare acute [facility] Work Phone: Reason for referral (narrative)No reason for referral information availableK[facility] Work Phone: Chief Complaint and Reason for Visit Chief Complaint MORBID OBESITY MORBID OBESITY headache MORBID OBESITY MORBID OBESITY Chief Complaint MORBID OBESITY headache MORBID OBESITY MORBID OBESITY MORBID OBESITY MORBID OBESITY Chief Complaint MORBID OBESITY MORBID OBESITY MORBID OBESITY MORBID OBESITY Chief Complaint MORBID OBESITY MORBID OBESITY MORBID OBESITY Chief Complaint MORBID OBESITY MORBID OBESITY Chief Complaint MORBID OBESITY MORBID OBESITY MORBID OBESITY MORBID OBESITY STOMACHACHE/CONSTIPATION Reason for Visit Constipation Chief Complaint MORBID OBESITY MORBID OBESITY MORBID OBESITY STOMACHACHE/CONSTIPATION MORBID OBESITY Reason for Visit Constipation Chief Complaint MORBID OBESITY MORBID OBESITY STOMACHACHE/CONSTIPATION MORBID OBESITY MORBID OBESITY Reason for Visit Constipation Chief Complaint MORBID OBESITY STOMACHACHE/CONSTIPATION MORBID OBESITY MORBID OBESITY MORBID OBESITY Reason for Visit Constipation Chief Complaint STOMACHACHE/CONSTIPA TION MORBID OBESITY MORBID OBESITY MORBID OBESITY MORBID OBESITY Reason for Visit Constipation Chief Complaint MORBID OBESITY MORBID OBESITY MORBID OBESITY MORBID OBESITY SCREENING MORBID OBESITY Chief Complaint MORBID OBESITY MORBID OBESITY MORBID OBESITY SCREENING BI LAT HIPS room 2 MORBID OBESITY Reason for Visit Bilateral carpal maggie maria guadalupe syndrome Diabetes mellitus type 2, controlled, without complications Hip osteoarthritis Morbid obesity Chief Complaint MORBID OBESITY MORBID OBESITY MORBID OBESITY SCREENING BI LAT HIPS room 2 MORBID OBESITY Carpal tunnel syndrome, bilateral upper limbs Carpal tunnel syndrome, bilateral upper limbs HIP OSTEOARTHITIS. RX HERE Reason for Visit Bilateral carpal maggie maria guadalupe syndrome Diabetes mellitus type 2, controlled, without complications Hip osteoarthritis Morbid obesity Chief Complaint MORBID OBESITY SCREENING BI LAT HIPS room 2 MORBID OBESITY Carpal tunnel syndrome, bilateral upper limbs Carpal tunnel syndrome, bilateral upper limbs BL HANDS MORBID OBESITY HIP OSTEOARTHITIS. RX HERE Reason for Visit Bilateral carpal maggie maria guadalupe syndrome Diabetes mellitus type 2, controlled, without complications Hip osteoarthritis Morbid obesity Bilateral carpal tunnel syndrome Chief Complaint MORBID OBESITY SCREENING BI LAT HIPS room 2 MORBID OBESITY Carpal tunnel syndrome, bilateral upper limbs Carpal tunnel syndrome, bilateral upper limbs BL HANDS MORBID OBESITY HIP OSTEOARTHITIS. RX HERE Right open Carpal Tunnel Release Right open Carpal Tunnel Release Reason for Visit Bilateral carpal maggie maria guadalupe syndrome Diabetes mellitus type 2, controlled, without complications Hip osteoarthritis Morbid obesity Bilateral carpal tunnel syndrome Chief Complaint BI LAT HIPS room 2 MORBID OBESITY Carpal tunnel syndrome, bilateral upper limbs Carpal tunnel syndrome, bilateral upper limbs BL HANDS MORBID OBESITY Right open Carpal Tunnel Release Right open Carpal Tunnel Release HIP OSTEOARTHITIS. RX HERE right wrist FACIAL RASH RIGHT WRIST MORBID OBESITY Left Open Carpal Tunnel Release Left Open Carpal Tunnel Release Reason for Visit Bilateral carpal maggie maria guadalupe syndrome Diabetes mellitus type 2, controlled, without complications Hip osteoarthritis Morbid obesity Bilateral carpal tunnel syndrome Orthopedic aftercare Impetigo Bilateral carpal tunnel syndrome Chief Complaint Carpal tunnel syndro me, bilateral upper limbs Carpal tunnel syndrome, bilateral upper limbs BL HANDS MORBID OBESITY Right open Carpal Tunnel Release Right open Carpal Tunnel Release HIP OSTEOARTHITIS. RX HERE right wrist FACIAL RASH RIGHT WRIST MORBID OBESITY Left Open Carpal Tunnel Release Left Open Carpal Tunnel Release Reason for Visit Bilateral carpal maggie maria guadalupe syndrome Orthopedic aftercare Impetigo Bilateral carpal tunnel syndrome Chief Complaint BL HANDS MORBID OBESITY Right open Carpal Tunnel Release Right open Carpal Tunnel Release HIP OSTEOARTHITIS. RX HERE right wrist FACIAL RASH RIGHT WRIST MORBID OBESITY Left Open Carpal Tunnel Release Left Open Carpal Tunnel Release left wrist MORBID OBESITY Reason for Visit Bilateral carpal maggie maria guadalupe syndrome Orthopedic aftercare Impetigo Bilateral carpal tunnel syndrome Orthopedic aftercare Chief Complaint BL HANDS MORBID OBESITY Right open Carpal Tunnel Release Right open Carpal Tunnel Release HIP OSTEOARTHITIS. RX HERE right wrist FACIAL RASH RIGHT WRIST MORBID OBESITY Left Open Carpal Tunnel Release Left Open Carpal Tunnel Release left wrist MORBID OBESITY MORBID OBESITY Reason for Visit Bilateral carpal maggie maria guadalupe syndrome Orthopedic aftercare Impetigo Bilateral carpal tunnel syndrome Orthopedic aftercare Chief Complaint Right open Carpal Tu nnel Release Right open Carpal Tunnel Release HIP OSTEOARTHITIS. RX HERE right wrist FACIAL RASH RIGHT WRIST MORBID OBESITY Left Open Carpal Tunnel Release Left Open Carpal Tunnel Release left wrist MORBID OBESITY MORBID OBESITY Reason for Visit Orthopedic aftercare Impetigo Bilateral carpal tunnel syndrome Orthopedic aftercare Chief Complaint MORBID OBESITY Left Open Carpal Tunnel Release Left Open Carpal Tunnel Release left wrist MORBID OBESITY MORBID OBESITY MORBID OBESITY Reason for Visit Orthopedic aftercare Chief Complaint MORBID OBESITY SCREENING BI LAT HIPS room 2 MORBID OBESITY Carpal tunnel syndrome, bilateral upper limbs Carpal tunnel syndrome, bilateral upper limbs BL HANDS MORBID OBESITY Right open Carpal Tunnel Release Right open Carpal Tunnel Release HIP OSTEOARTHITIS. RX HERE Reason for Visit Bilateral carpal maggie maria guadalupe syndrome Diabetes mellitus type 2, controlled, without complications Hip osteoarthritis Morbid obesity Bilateral carpal tunnel syndrome Chief Complaint Admit Date MORBID OBESITY December 21, 2024 9 :00am RIGHT WRIST December 28, 2024 8 :38am Room 2 December 28, 2024 8 :51am SCREENING December 31, 2024 1 :14pm MORBID OBESITY January 14, 2025 11:26am MORBID OBESITY February 10, 2025 1:3 0pm Reason for Visit Admit Date Arthritis of radiocarpal joint of right wrist December 28, 2024 8:38am Pain in left wrist December 28, 2024 8 :38am Chief Complaint Admit Date RIGHT WRIST December 28, 2024 8 :38am Room 2 December 28, 2024 8 :51am SCREENING December 31, 2024 1 :14pm MORBID OBESITY January 14, 2025 11:26am MORBID OBESITY February 10, 2025 1:3 0pm MORBID OBESITY March 24, 2025 9:0 0am MORBID OBESITY April 07, 2025 11:25 am Chief Complaint Admit Date MORBID OBESITY February 10, 2025 1:3 0pm MORBID OBESITY March 24, 2025 9:0 0am MORBID OBESITY April 07, 2025 11:25 am MORBID OBESITY May 12, 2025 8:30 am Chief Complaint Admit Date MORBID OBESITY March 24, 2025 9:0 0am MORBID OBESITY April 07, 2025 11:25 am MORBID OBESITY May 12, 2025 8:30 am MORBID OBESITY June 10, 2025 10:0 0am Chief Complaint Admit Date MORBID OBESITY April 07, 2025 11:25 am MORBID OBESITY May 12, 2025 8:30 am MORBID OBESITY June 10, 2025 10:0 0am MORBID OBESITY July 21, 2025 9: 36am Chief Complaint Admit Date MORBID OBESITY May 12, 2025 8:30 am MORBID OBESITY June 10, 2025 10:0 0am MORBID OBESITY July 21, 2025 9: 36am MORBID OBESITY August 18, 2025 8:30am Chief Complaint Admit Date MORBID OBESITY June 10, 2025 10:0 0am MORBID OBESITY July 21, 2025 9: 36am MORBID OBESITY August 18, 2025 8:30am MORBID OBESITY September 08, 2025 1 1:04am Advance Directives No Advanced Directives Records Found Advance Directive Response Recorded Date/ Time Living Will No January 07, 2 022 6:25pm Power of Strapper And Buffer No January 07, 2022 6:25pm Advance Directive Response Recorded Date/ Time Living Will No January 07, 2 022 5:25pm Power of Strapper And Buffer No January 07, 2022 5:25pm Advance Directive Response Recorded Date/ Time Living Will No August 21, 2023 10:28am Power of Strapper And Buffer No July 10:28am Advance Directive Response Recorded Date/ Time Living Will No October 22, 023 12:13pm Power of Strapper And Buffer No October 22, 2023 12:13pm Advance Directive Response Recorded Date/ Time Living Will No December 12 10:46am Power of Strapper And Buffer No December 12, 2023 10:46am Advance Directive Response Recorded Date/ Time Living Will No December 12 11:46am Power of Strapper And Buffer No December 12, 2023 11:46am Advance Directive Response Recorded Date/ Time Living Will No December 26 2:30am Do you have a Healthcare Power of Strapper And Buffer? No December 26, 2024 2:30am Living Will No January 23, 2025 1:59am Do you have a Healthcare Power of Strapper And Buffer? No January 23, 2025 1:59am Living Will No October 25 1:25am Do you have a Healthcare Power of Strapper And Buffer? No October 25, 2024 1:25am Advance Directive Response Recorded Date/ Time Living Will No December 26 2:30am Do you have a Healthcare Power of Strapper And Buffer? No December 26, 2024 2:30am Living Will No January 23, 2025 1:59am Do you have a Healthcare Power of Strapper And Buffer? No January 23, 2025 1:59am Living Will No February 23, 2025 12:18am Do you have a Healthcare Power of Strapper And Buffer? No February 23, 2025 12:18am Living Will No March 25, 2025 12 :28am Do you have a Healthcare Power of Strapper And Buffer? No March 25, 2025 12:28am Advance Directive Response Recorded Date/ Time Living Will No January 23, 2025 1:59am Do you have a Healthcare Power of Strapper And Buffer? No January 23, 2025 1:59am Living Will No February 23, 2025 12:18am Do you have a Healthcare Power of Strapper And Buffer? No February 23, 2025 12:18am Living Will No March 25, 2025 12 :28am Do you have a Healthcare Power of Strapper And Buffer? No March 25, 2025 12:28am Living Will No April 25, 2025 1 2:34am Do you have a Healthcare Power of Strapper And Buffer? No April 25, 2025 12:34am Advance Directive Response Recorded Date/ Time Living Will No February 23, 2025 12:18am Do you have a Healthcare Power of Strapper And Buffer? No February 23, 2025 12:18am Living Will No March 25, 2025 12 :28am Do you have a Healthcare Power of Strapper And Buffer? No March 25, 2025 12:28am Living Will No April 25, 2025 1 2:34am Do you have a Healthcare Power of Strapper And Buffer? No April 25, 2025 12:34am Advance Directive Response Recorded Date/ Time Living Will No March 25, 2025 12 :28am Do you have a Healthcare Power of Strapper And Buffer? No March 25, 2025 12:28am Living Will No April 25, 2025 1 2:34am Do you have a Healthcare Power of Strapper And Buffer? No April 25, 2025 12:34am Advance Directive Response Recorded Date/ Time Living Will No April 25, 2025 1 2:34am Do you have a Healthcare Power of Strapper And Buffer? No April 25, 2025 12:34am Summary Purpose Family History No Family History Records Found Additional Source Comments Goals (unrecognized section and content) Goals may be documented in a n alternate sectionGoals may be documented in an alternate sectionGoals may be documented in an alternate sectionGoals may be documented in an alternate sectionGoals may be documented in an alternate sectionGoals may be documented in an alternate sectionGoals may be documented in an alternate sectionGoals may be documented in an alternate sectionGoals may be documented in an alternate sectionGoals may be documented in an alternate sectionGoals may be documented in an alternate sectionGoals may be documented in an alternate sectionGoals may be documented in an alternate sectionGoals may be documented in an alternate sectionGoals may be documented in an alternate sectionGoals may be documented in an alternate sectionGoals may be documented in an alternate sectionGoals may be documented in an alternate sectionGoals may be documented in an alternate sectionGoals may be documented in an alternate sectionGoals may be documented in an alternate sectionGoals may be documented in an alternate sectionGoals may be documented in an alternate sectionGoals may be documented in an alternate sectionGoals may be documented in an alternate sectionGoals may be documented in an alternate sectionGoals may be documented in an alternate sectionGoals may be documented in an alternate sectionGoals may be documented in an alternate section Care Teams (unrecognized sec tion and content) Team Status: Active Member Role Status Dates Dr. Shaheen Ocampo MD Family Provider Active Dr. Shaheen Ocampo MD Primary Care Provider Active Team Status: Inactive Member Role Status Dates Dr. Shaheen Ocampo MD Primary Care Provi branden, Attending Provider, Family Provider, Referring Provider Active Team Status: Inactive Member Role Status Dates Dr. Shaheen Ocampo MD Primary Care Provider, Referring Provider Active Rupert GILES, PA Attending Provider Active Team Status: Active Member Role Status Dates Dr. Shaheen Ocapmo MD Primary Care Provi branden, Attending Provider, Family Provider, Referring Provider Active Team Status: Inactive Member Role Status Dates Dr. Shaheen Ocampo MD Primary Care Provider Active Dr. Brian Bundy MD Attending Provider Active Team Status: Inactive Member Role Status Dates Dr. Shaheen Ocampo MD Primary Care Provi branden, Attending Provider, Referring Provider Active Team Status: Inactive Member Role Status Dates Dr. Shaheen Ocampo MD Primary Care Provider, Attending Provider Active Team Status: Inactive Member Role Status Dates Dr. Shaheen Ocampo MD Primary Care Provider, Referring Provider Active Dr. Ifeanyi Jacob DO Attending Provider Active Team Status: Inactive Member Role Status Dates Dr. Shaheen Ocampo MD Primary Care Provider Active Dr. Ronal Graves MD Attending Provider Active Team Status: Active Member Role Status Dates Dr. Shaheen Ocampo MD Primary Care Provider Active Dr. Ifeanyi Jacob DO Referring Provider, Other Prov ider Active Dr. Marley Gimenez MD Attending Provider Active Team Status: Inactive Member Role Status Dates Dr. Shaheen Ocampo MD Primary Care Provider Active Dr. Ifeanyi Jacob DO Attending Provider, Referring Provider Active Team Status: Active Member Role Status Dates Dr. Sahheen Ocampo MD Primary Care Provider Active Dr. Ifeanyi Jacob DO Attending Provider, Referring Provider Active Team Status: Active Member Role Status Dates Dr. Shaheen Ocampo MD Primary Care Provider Active Dr. Ifeanyi Jacob DO Attending Provid er, Referring Provider, Other Provider Active Team Status: Active Member Role Status Dates Dr. Shaheen Ocampo MD Primary Care Provider Active Team Status: Inactive Member Role Status Dates Dr. Shaheen Ocampo MD Primary Care Provider Active Start: November 13, 2024 End: November 13, 2024 Dr. Shaheen Ocampo MD Attending Provider Active Start: November 13, 2024 End: November 13, 2024 Dr. Shaheen Ocampo MD Referring Provider Active Start: November 13, 2024 End: November 13, 2024 Team Status: Inactive Member Role Status Dates Dr. Shaheen Ocampo MD Primary Care Provider Active Start: December 21, 2024 End: December 25, 2024 Dr. Shaheen Ocampo MD Attending Provider Active Start: December 21, 2024 End: December 25, 2024 Dr. Shaheen Ocampo MD Referring Provider Active Start: December 21, 2024 End: December 25, 2024 Team Status: Inactive Member Role Status Dates Dr. Shaheen Ocampo MD Primary Care Provider Active Start: December 28, 2024 End: December 28, 2024 Dr. Shahene Ocampo MD Referring Provider Active Start: December 28, 2024 End: December 28, 2024 Dr. Ifeanyi Jacob DO Attending Provider Active Start: December 28, 2024 End: December 28, 2024 Team Status: Inactive Member Role Status Dates Dr. Shaheen Ocampo MD Primary Care Provider Active Start: December 28, 2024 End: December 28, 2024 Dr. Ronal Graves MD Attending Provider Active S tart: December 28, 2024 End: December 28, 2024 Team Status: Inactive Member Role Status Dates Dr. Shaheen Ocampo MD Primary Care Provider Active Start: December 31, 2024 End: December 31, 2024 Dr. Shaheen Ocampo MD Attending Provider Active Start: December 31, 2024 End: December 31, 2024 Dr. Shaheen Ocampo MD Referring Provider Active Start: December 31, 2024 End: December 31, 2024 Team Status: Inactive Member Role Status Dates Dr. Shaheen Ocampo MD Primary Care Provider Active Start: January 14, 2025 End: January 22, 2025 Dr. Shaheen Ocampo MD Attending Provider Active Start: January 14, 2025 End: January 22, 2025 Dr. Shaheen Ocampo MD Referring Provider Active Start: January 14, 2025 End: January 22, 2025 Team Status: Inactive Member Role Status Dates Dr. Shaheen Ocampo MD Primary Care Provider Active Start: February 10, 2025 End: February 22, 2025 Dr. Shaheen Ocampo MD Attending Provider Active Start: February 10, 2025 End: February 22, 2025 Dr. Shaheen Ocampo MD Referring Provider Active Start: February 10, 2025 End: February 22, 2025 Team Status: Inactive Member Role Status Dates Dr. Shaheen Ocampo MD Primary Care Provider Active Start: March 24, 2025 End: March 24, 2025 Dr. Shaheen Ocampo MD Attending Provider Active Start: March 24, 2025 End: March 24, 2025 Dr. Shaheen Ocampo MD Referring Provider Active Start: March 24, 2025 End: March 24, 2025 Team Status: Inactive Member Role Status Dates Dr. Shaheen Ocampo MD Primary Care Provider Active Start: April 07, 2025 End: April 24, 2025 Dr. Shaheen Ocampo MD Attending Provider Active Start: April 07, 2025 End: April 24, 2025 Dr. Shaheen Ocampo MD Referring Provider Active Start: April 07, 2025 End: April 24, 2025 Team Status: Active Member Role/Relationship Status Dates Dr. Shaheen Ocampo MD Primary Care Provider Active Team Status: Inactive Member Role/Relationship Status Dates Dr. Shaheen Ocampo MD Primary Care Provider Active Start: February 10, 2025 End: February 22, 2025 Dr. Shaheen Ocampo MD Attending Provider Active Start: February 10, 2025 End: February 22, 2025 Dr. Shaheen Ocampo MD Referring Provider Active Start: February 10, 2025 End: February 22, 2025 Team Status: Inactive Member Role/Relationship Status Dates Dr. Shaheen Ocampo MD Primary Care Provider Active Start: March 24, 2025 End: March 24, 2025 Dr. Shaheen Ocampo MD Attending Provider Active Start: March 24, 2025 End: March 24, 2025 Dr. Shaheen Ocampo MD Referring Provider Active Start: March 24, 2025 End: March 24, 2025 Team Status: Inactive Member Role/Relationship Status Dates Dr. Shaheen Ocampo MD Primary Care Provider Active Start: April 07, 2025 End: April 24, 2025 Dr. Shaheen Ocampo MD Attending Provider Active Start: April 07, 2025 End: April 24, 2025 Dr. Shaheen Ocampo MD Referring Provider Active Start: April 07, 2025 End: April 24, 2025 Team Status: Inactive Member Role/Relationship Status Dates Dr. Shaheen Ocampo MD Primary Care Provider Active Start: May 12, 2025 End: May 24, 2025 Dr. Shaheen Ocampo MD Attending Provider Active Start: May 12, 2025 End: May 24, 2025 Dr. Shaheen Ocampo MD Referring Provider Active Start: May 12, 2025 End: May 24, 2025 Team Status: Inactive Member Role/Relationship Status Dates Dr. Shaheen Ocampo MD Primary Care Provider Active Start: March 24, 2025 End: March 24, 2025 Dr. Shaheen Ocampo MD Attending Provider Active Start: March 24, 2025 End: March 24, 2025 Dr. Shaheen Ocampo MD Referring Provider Active Start: March 24, 2025 End: March 24, 2025 Team Status: Inactive Member Role/Relationship Status Dates Dr. Shaheen Ocampo MD Primary Care Provider Active Start: April 07, 2025 End: April 24, 2025 Dr. Shaheen Ocampo MD Attending Provider Active Start: April 07, 2025 End: April 24, 2025 Dr. Shaheen Ocampo MD Referring Provider Active Start: April 07, 2025 End: April 24, 2025 Team Status: Inactive Member Role/Relationship Status Dates Dr. Shaheen Ocampo MD Primary Care Provider Active Start: May 12, 2025 End: May 24, 2025 Dr. Shaheen Ocampo MD Attending Provider Active Start: May 12, 2025 End: May 24, 2025 Dr. Shaheen Ocampo MD Referring Provider Active Start: May 12, 2025 End: May 24, 2025 Team Status: Inactive Member Role/Relationship Status Dates Dr. Shaheen Ocampo MD Primary Care Provider Active Start: June 10, 2025 End: June 24, 2025 Dr. Shaheen Ocampo MD Attending Provider Active Start: June 10, 2025 End: June 24, 2025 Dr. Shaheen Ocampo MD Referring Provider Active Start: June 10, 2025 End: June 24, 2025 Team Status: Inactive Member Role/Relationship Status Dates Dr. Shaheen Ocampo MD Primary Care Provider Active Start: April 07, 2025 End: April 24, 2025 Dr. Shaheen Ocampo MD Attending Provider Active Start: April 07, 2025 End: April 24, 2025 Dr. Shaheen Ocampo MD Referring Provider Active Start: April 07, 2025 End: April 24, 2025 Team Status: Inactive Member Role/Relationship Status Dates Dr. Shaheen Ocampo MD Primary Care Provider Active Start: May 12, 2025 End: May 24, 2025 Dr. Shaheen Ocampo MD Attending Provider Active Start: May 12, 2025 End: May 24, 2025 Dr. Shaheen Ocampo MD Referring Provider Active Start: May 12, 2025 End: May 24, 2025 Team Status: Inactive Member Role/Relationship Status Dates Dr. Shaheen Ocampo MD Primary Care Provider Active Start: June 10, 2025 End: June 24, 2025 Dr. Shaheen Ocampo MD Attending Provider Active Start: June 10, 2025 End: June 24, 2025 Dr. hSaheen Ocampo MD Referring Provider Active Start: June 10, 2025 End: June 24, 2025 Team Status: Inactive Member Role/Relationship Status Dates Dr. Shaheen Ocampo MD Primary Care Provider Active Start: July 21, 2025 End: July 25, 2025 Dr. Shaheen Ocampo MD Attending Provider Active Start: July 21, 2025 End: July 25, 2025 Dr. Shaheen Ocampo MD Referring Provider Active Start: July 21, 2025 End: July 25, 2025 Team Status: Active Member Role/Relationship Status Dates Dr. Shaheen Ocampo MD Primary care physician Active Team Status: Inactive Member Role/Relationship Status Dates Dr. Shaheen Ocampo MD Primary care physician Active Start: May 12, 2025 End: May 24, 2025 Dr. Shaheen Ocampo MD Attending physician Active Start: May 12, 2025 End: May 24, 2025 Dr. Shaheen Ocampo MD Referring Provider Active Start: May 12, 2025 End: May 24, 2025 Team Status: Inactive Member Role/Relationship Status Dates Dr. Shaheen Ocampo MD Primary care physician Active Start: June 10, 2025 End: June 24, 2025 Dr. Shaheen Ocampo MD Attending physician Active Start: June 10, 2025 End: June 24, 2025 Dr. Shaheen Ocampo MD Referring Provider Active Start: June 10, 2025 End: June 24, 2025 Team Status: Inactive Member Role/Relationship Status Dates Dr. Shaheen Ocampo MD Primary care physician Active Start: July 21, 2025 End: July 25, 2025 Dr. Shaheen Ocampo MD Attending physician Active Start: July 21, 2025 End: July 25, 2025 Dr. Shaheen Ocampo MD Referring Provider Active Start: July 21, 2025 End: July 25, 2025 Team Status: Inactive Member Role/Relationship Status Dates Dr. Shaheen Ocampo MD Primary care physician Active Start: August 18, 2025 End: August 24, 2025 Dr. Shaheen Ocampo MD Attending physician Active Start: August 18, 2025 End: August 24, 2025 Dr. Shaheen Ocampo MD Referring Provider Active Start: August 18, 2025 End: August 24, 2025 Team Status: Active Member Role/Relationship Status Dates Dr. Shaheen Ocampo MD Primary care physician Active Start: August 25, 2025 Dr. Shaheen Ocampo MD Attending physician Active Start: August 25, 2025 Team Status: Inactive Member Role/Relationship Status Dates Dr. Shaheen Ocampo MD Primary care physician Active Start: June 10, 2025 End: June 24, 2025 Dr. Shaheen Ocampo MD Attending physician Active Start: June 10, 2025 End: June 24, 2025 Dr. Shaheen Ocampo MD Referring Provider Active Start: June 10, 2025 End: June 24, 2025 Team Status: Inactive Member Role/Relationship Status Dates Dr. Shaheen Ocampo MD Primary care physician Active Start: July 21, 2025 End: July 25, 2025 Dr. Shaheen Ocampo MD Attending physician Active Start: July 21, 2025 End: July 25, 2025 Dr. Shaheen Ocampo MD Referring Provider Active Start: July 21, 2025 End: July 25, 2025 Team Status: Inactive Member Role/Relationship Status Dates Dr. Shaheen Ocampo MD Primary care physician Active Start: August 18, 2025 End: August 24, 2025 Dr. Shaheen Ocampo MD Attending physician Active Start: August 18, 2025 End: August 24, 2025 Dr. Shaheen Ocampo MD Referring Provider Active Start: August 18, 2025 End: August 24, 2025 Team Status: Inactive Member Role/Relationship Status Dates Dr. Shaheen Ocampo MD Primary care physician Active Start: August 25, 2025 End: August 25, 2025 Dr. Shaheen Ocampo MD Attending physician Active Start: August 25, 2025 End: August 25, 2025 Team Status: Active Member Role/Relationship Status Dates Dr. Shaheen Ocampo MD Primary care physician Active Start: September 08, 2025 Dr. Shaheen Ocampo MD Attending physician Active Start: September 08, 2025 Dr. Shaheen Ocampo MD Referring Provider Active Start: September 08, 2025 INFORMATION SOURCE (unrecogn ized section and content) DATE CREATED AUTHOR 10/07/2025 [facility] FOR RECORDS PERTAINING TO PATIENTS WHO ARE OR HAVE BEEN ENROLLED IN A CHEMICAL DEPENDENCY/SUBSTANCEABUSE PROGRAM, SOME INFORMATION MAY BE OMITTED. This clinical summary was aggregated from multiple sources. Caution should be exercised in using it in the provision of clinical care. This summary normalizes information from multiple sources, and as a consequence, information in this document may materially change the coding, format and clinical context of patient data. In addition, data may be omitted in some cases. CLINICAL DECISIONS SHOULD BE BASED ON THE PRIMARY CLINICAL RECORDS. [facility] provides no warranty or guarantee of the accuracy or completeness of information in this document.
[2025-11-03] MEDS: Lactated Ringers 1,000 ML 15 ML IV (08:08)
--- NOTE | 2025-11-03 08:37 | PCM.PRE.AN2 ---
ASA Classification* ASA Classification ASA Classification: 3 Assessment & Plan Anesthesia* Anesthesia Assessment Anesthesia Assessment: Discussed sedation and/or anesthesia options, risks, benefits, and alternatives with patient/parents/legal guardian/POA. Questions invited. The patient/parents/legal guardian/POA seems to understand and agrees to proceed with anesthesia plan. Reviewed the physical assessment, medical history, allergy history and patient home medications list prior to surgery/procedure/anesthetic and documented any changes. Performed airway and anesthesia risk assessments. Anesthesia Type Anesthesia Type: General History Source History Obtained from:: Patient and Chart Anesthesia Focused Assessment* Temperature: 97.6 F Pulse Rate: 99 Blood Pressure: 126/76 Respiratory Rate: 17 Pulse Ox: 96 Oxygen Delivery Method: Room Air Airway Assessment Mouth opens: >3 cm Mallampati Score: II Comment: RBBB on EKG Labs Anesthesia Preop lab: CBC WBC, (4.4-11.0) 11.9 K/mm3 H 01/21/18, 14:59 RBC, (4.2-5.4) 4.75 M/mm3 01/21/18, 14:59 Hgb, (12.0-15.0) 14.5 g/dl 01/21/18, 14:59 Hct, (37-47) 45.1 % 01/21/18, 14:59 Plt Count, (150-450) 277 K/mm3 01/21/18, 14:59 CHEMISTRY Potassium, (3.3-5.1) 4.4 mmol/L 08/25/25, 12:01 Sodium, (133-145) 142 mmol/L 08/25/25, 12:01 Magnesium, (1.6-2.6) 2.3 mg/dL 11/13/24, 13:21 BUN, (4-19) 19 mg/dL 08/25/25, 12:01 Creatinine, (0.70-1.20) 0.65 mg/dL L 08/25/25, 12:01 Glucose, (70-99) 120 mg/dL H 08/25/25, 12:01 POC Glucose, (74-106) 123 mg/dL H 12/17/23, 09:18 TSH, (0.358-3.74) 0.81 uIU/mL 04/27/18, 11:30 COAG Pre-Assessment Diagnosis/Proposed Procedure Planned Operative Procedure(s): CSCOPE Anesthesia History 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 When Was Last Pacemaker Check QUESTION #4 FULL TEXT: You/Your Family Experience fever (hyperthermia) with Anesthesia Last Oral Intake Last Oral intake: Last Oral Intake NPO since 00:00 11/03/25 08:05 Meds taken in AM with sips of No 11/03/25 08:05 water? Meds patient instructed to take am of surgery PONV PONV - cafe operator: PONV - cafe operator Female Yes 11/01/25 14:32 HX of Motion Sickness No 11/01/25 14:32 HX of N/V After Surgery No 11/01/25 14:32 Non-Smoker Yes 11/01/25 14:32 Duration of Surgery greater No 11/01/25 14:32 than 60 minutes Number of Risk Factors 2 11/01/25 14:32 PONV Score Moderate Risk 11/01/25 14:32 Height & Weight Height & Weight: Anesthesia: Height & Weight Height 5 ft 1 in 11/03/25 08:05 Weight: 125 kg 11/03/25 08:05 Body Mass Index (BMI) 52.0 11/03/25 08:05 Respiratory Assessment Respiratory Assessment - cafe operator: Respiratory Tract Infection Hx - cafe operator Hx Respiratory Tract Infection No 11/02/25 14:04 STOP Sleep Apnea STOP Sleep Apnea - cafe operator: STOP Sleep Apnea - cafe operator Hx Hypertension No 11/02/25 14:04 Hx Sleep Apnea Yes 11/02/25 14:04 CPAP No 11/02/25 14:04 BIPAP Yes 11/02/25 14:04 Do you snore loudly (louder than talking or can be heard Do you often feel tired/ fatigued/ sleepy during daytime? Has anyone observed you stop breathing during sleep? STOP Results Positive 11/03/25 07:57 QUESTION #5 FULL TEXT : Do you snore loudly (louder than talking or can be heard through closed doors)? 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 Specify any problems Hx of Preganancy in last 3 N/A 11/01/25 14:32 Months Nurse Filling Out Transfusion NBUCHER 11/01/25 14:32 & Questions: Date: 11/01/25 11/01/25 14:32 Time: 14:33 11/01/25 14:32 Patient unable to answer at this time (ie. confused, unrespo /Reproduction History /Reproductive History - cafe operator: /Reproductive Hx- cafe operator Hx Now No 11/02/25 14:04 Gestational Age (in weeks): EDC: Hx Hx Para Hx Section SAB No 11/01/25 14:32 Does the father of the baby or his family experience fever w Father of the baby Malignant Hypertension history comment Active Medications Active Medications: Current Medications Generic Name Dose Route Start Last Admin Trade Name Freq PRN Reason Stop Dose Admin Lactated Ringer's 1,000 mls @ 15 mls/hr 11/03/25 07:45 11/03/25 08:08 IV 15 mls/hr .Q48H RITESH Administration PFSH Medical History Sleep apnea BiPAP (biphasic positive airway pressure) dependence Loss of hearing Depression Anxiety Alcohol use Diabetes Uses wheelchair Low iron Restless legs Back pain Migraine headache Injury of head and neck Dietary restriction Difficulty swallowing Heartburn Non-smoker Leg cramps History of pain when walking History of edema HTN (hypertension) Home Medications ?Medication ?Instructions ?Recorded ?Last Taken ?Type bupropion HCl 300 mg 24 hr tablet, 300 mg PO DAILY 03/20/16 11/02/25 History extended release gabapentin 300 mg capsule 300 mg PO BIDCM 03/20/16 11/02/25 History meloxicam 15 mg tablet 15 mg PO DAILY 03/20/16 11/02/25 History blood sugar diagnostic (FreeStyle #100 ea 10/27/18 Unknown Rx Test strips) lisinopril 2.5 mg tablet 2.5 mg PO DAILY 01/15/23 11/02/25 History loratadine 10 mg tablet (Allergy 10 mg PO DAILY 01/15/23 11/02/25 History Relief (loratadine)) venlafaxine 150 mg 150 mg PO DAILY 01/15/23 11/02/25 History capsule,extended release 24 hr B-complex with vitamin C 1 cap PO DAILY 08/21/23 11/02/25 History cholecalciferol (vitamin D3) 25 25 mcg PO DAILY 08/21/23 11/02/25 History mcg (1,000 unit) capsule tramadol 50 mg tablet 50 mg PO DAILY 12/30/23 11/02/25 History rosuvastatin 5 mg tablet 5 mg PO QDAY 12/28/24 11/02/25 History Allergy/AdvReac Type Severity Reaction Status Date / Time Environmental Allergies: Allergy Rash Verified 11/03/25 08:04 Uncoded (pine) adhesive AdvReac Rash Verified 11/03/25 08:04 Family History Mother Heart disease Arthritis Surgical History History of carpal tunnel surgery of left wrist History of carpal tunnel surgery of right wrist History of tonsillectomy and adenoidectomy History of H/O: hysterectomy Social History household members: none Smoking Status: Never smoker second hand exposure: No alcohol intake: never substance use type: does not use Review of Systems (Anesthesia) ROS Narrative System reviewed and no additional complaints, except as documented. Physical Exam Const alert and oriented x3 HEENT dentition normal Resp normal respiratory effort and normal air movement Cardio regular rate and regular rhythm Neuro oriented x3 and moves all extremities
--- NOTE | 2025-11-03 08:45 | COLBX_PTH ---
PATIENT: MARA LONGO LOC: EN U#:[id number] AGE/SX: 55/F ROOM: RE11/03/[address]: Dr. Kesha Santana MD : 1970 BED: DIS: 11/03/2025 SPEC #: [id number] RECD: 11/03/25 12:46 STATUS: EVELINE REJanice #: [id number] BATOOL: 11/03/25 08:[address]: Kesha Santana DEPT: SURGICAL PATHOLOGY RECD BY: Beka Meier ENTERED: 11/03/25 14:12 SP TYPE: COLON BX OTHR DR: Dr. Shaheen Ocampo MD Tissues: A - Ascending colon Procedures: Surgery Specimen Level IV HEADER OPERATION: Colonoscopy with polypectomy PRE-OP DIAGNOSIS: Screening for colon cancer TISSUE SUBMITTED: A- Ascending colon polyp MICROSCOPIC DIAGNOSIS A. Colon, ascending, polyp, polypectomy: - Tubular adenoma. MICROSCOPIC DESCRIPTION Slides are reviewed. GROSS DESCRIPTION A. Received in fixative is one container labeled with the patient's name and designated Ascending colon polyp. The specimen consists of one irregular fragment of beckett tissue that measures 0.6 cm. The specimen is totally submitted in one cassette. CT 11/03/2025 CPT:19723
--- NOTE | 2025-11-03 09:20 | OP.COLON_ITS ---
Patient Name: Leelee Mccray Procedure Date: 11/03/2025 8:16 AM Date of : 1970 Age: 55 Procedure: Colonoscopy Indications: Screening for colorectal malignant neoplasm Providers: Kesha Santana MD Referring MD: Shaheen Ocampo MD Medicines: Monitored Anesthesia Care Patient Profile: This is a 55 year old female. Last Colonoscopy: none. The patient's first colonoscopy is today. Complications: No immediate complications. Procedure: Pre-Anesthesia Assessment: - Prior to the procedure, a History and Physical was performed, and patient medications and allergies were reviewed. The patient's tolerance of previous anesthesia was also reviewed. The risks and benefits of the procedure and the sedation options and risks were discussed with the patient. All questions were answered, and informed consent was obtained. Prior Anticoagulants: The patient has taken no anticoagulant or antiplatelet agents except for aspirin. ASA Grade Assessment: Per anesthesia. After reviewing the risks and benefits, the patient was deemed in satisfactory condition to undergo the procedure. After I obtained informed consent, the scope was passed under direct vision. Throughout the procedure, the patient's blood pressure, pulse, and oxygen saturations were monitored continuously. The colonoscope was introduced through the anus and advanced to the cecum, identified by the appendiceal orifice, ileocecal valve and palpation. The colonoscopy was performed without difficulty. The patient tolerated the procedure well. The quality of the bowel preparation was good. Scope In: 8:57:15 AM Scope Withdrawal Time 0 hours 11 minutes 32 seconds Scope Out: 9:15:19 AM Total Procedure Duration Time 0 hours 18 minutes 4 seconds Findings: Hemorrhoids were found on perianal exam. Non-bleeding internal hemorrhoids were found. The hemorrhoids were Grade I (internal hemorrhoids that do not prolapse). A less than 5 mm polyp was found in the ascending colon. The polyp was sessile. The polyp was removed with a cold biopsy forceps. Resection and retrieval were complete. The exam was otherwise without abnormality. Impression: - Hemorrhoids found on perianal exam. - Non-bleeding internal hemorrhoids. - One less than 5 mm polyp in the ascending colon, removed with a cold biopsy forceps. Resected and retrieved. - The examination was otherwise normal. Recommendation: - Discharge patient to home. - Resume previous diet. - Continue present medications. - Await pathology results. - Repeat colonoscopy in 5 years for surveillance based on pathology results. Procedure Code(s): --- Professional --- 50590, PT, Colonoscopy, flexible; with biopsy, single or multiple Diagnosis Code(s): --- Professional --- Z12.11, Encounter for screening for malignant neoplasm of colon K64.0, First degree hemorrhoids D12.2, Benign neoplasm of ascending colon CPT copyright 2021 [employer]. All rights reserved. The codes documented in this report are preliminary and upon transport specialist review may be revised to meet current compliance requirements. MD Kesha Vicente MD 11/03/2025 9:20:14 AM This report has been signed electronically. Number of Addenda: 0 Note Initiated On: 11/03/2025 8:16 AM
--- NOTE | 2025-11-03 09:20 | OP.PROVAT_ITS ---
11/03/2025 Shaheen Ocampo MD [address] [id number] Re : Colonoscopy procedure for Leelee Mccray Dear Dr. Ocampo This procedure was performed on Monday, November 03, 2025. My impressions and recommendations are as follows: Impressions : - Hemorrhoids found on perianal exam. - Non-bleeding internal hemorrhoids. - One less than 5 mm polyp in the ascending colon, removed with a cold biopsy forceps. Resected and retrieved. - The examination was otherwise normal. Recommendations : - Discharge patient to home. - Resume previous diet. - Continue present medications. - Await pathology results. - Repeat colonoscopy in 5 years for surveillance based on pathology results. My findings are described in the full procedure note, which is enclosed. If I can be of further assistance, please feel free to contact me at Doctor phone number(s): , Work: . Sincerely, MD Kesha Vicente MD 11/03/2025 9:20:14 AM This report has been signed electronically.
--- NOTE | 2025-11-03 09:24 | PCM.POST.ANE ---
Anesthesia: Postop Eval I Current Vital Signs Temperature: 97 F Pulse Rate: 94 Blood Pressure: 113/78 Respiratory Rate: 18 Pulse Ox: 100 Oxygen Delivery Method: Room Air Assessment Airway patent: Yes Spontaneous unlabored respirations: Yes Mental status: Awake and Calm nausea: No Vomiting: No Anesthesia Complication: No Fluid Hydration Crystalloid volume administer (ml): 600 Total IV fluid infused: 600 Progress Note Anesthesia document: Postop Eval 1 completed: Yes
--- NOTE | 2025-11-03 09:47 | PCM.POSTANE2 ---
Anesthesia Postop Eval I Sum Postop Eval Completion status Anesthesia document: Postop Eval 1 completed: Yes Anesthesia Postop Eval I Summary Anesthesia Postop Eval I Summary: Anesthesia Postop Eval I: Assessment Summary Airway patent Yes 11/03/25 09:25 [email or web address] Spontaneous unlabored Yes 11/03/25 09:25 [email or web address] respirations Mental status Awake,Calm 11/03/25 09:25 [email or web address] nausea No 11/03/25 09:25 [email or web address] Vomiting No 11/03/25 09:25 [email or web address] Anesthesia Postop Eval I: Fluid Summary Crystalloid volume administer 600 11/03/25 09:25 [email or web address] (ml) Colloids volume administered ( ml) Blood Product volume administered (ml) Total IV fluid infused 600 11/03/25 09:25 [email or web address] Anesthesia Postop Eval I: Summary Notes Anesthesia Complication No 11/03/25 09:25 [email or web address] Anesthesia Complication Comment: Post-operative progress note Anesthesia: Postop Eval II Evaluation Mental status: Awake and Calm Pain Level: 0 nausea: No Vomiting: No Complications Anesthesia Complication: No
== END 2025-11-03 10:09 | disposition home or self-care (01) ==
LOC: EN 07:35 → AC 07:37
PROVIDERS: PCP Family Medicine; Referring Provider Family Medicine; Visit Provider Surgery
PROC: 0DJD8ZZ Inspection of Lower Intestinal Tract, Via Natural or Artificial Opening Endoscopic (ICD-10-PCS; CPT 45378; principal; 2025-11-03 08:40)
DX: Z12.11 Encounter for screening for malignant neoplasm of colon (principal); E11.9 Type 2 diabetes mellitus without complications; D12.2 Benign neoplasm of ascending colon; I10 Essential (primary) hypertension; K64.0 First degree hemorrhoids; K64.4 Residual hemorrhoidal skin tags; Z79.899 Other long term (current) drug therapy
CPT/HCPCS: 45380; 82962; 88305; J2405